=== PATIENT | female | born 1965 | race Caucasian/White ===

== ENCOUNTER 2016-10-07 15:06 | Observation (INO) | payer BC, OTHER ==
[~2016-10-07] VITALS: Ht 154.9 cm; Wt 73.8 kg
[~2016-10-07 15:06] MED LIST: ADVIN25/60 INH; ALBUAER19 INH; FURO40TA3 PO; HYDR1TAB2 PO; HYZ/50125 PO; LORA-741 PO; METFTAB PO; NIFE60TA55 PO; PANT40TA PO; SIMV80TA2 PO
[2016-10-07] MEDS ORDERED: ASPIRIN 324 MG CHEW PO STA (15:30)
--- NOTE | 2016-10-07 15:30 | EMERGENCY ROOM VISIT NOTE ---
History First contact with patient: 15:13 Chief Complaint: CARDIAC ASSESSMENT Stated Complaint: RACING HEART,DIZZINESS History of Present Illness The patient is a 51 year old female who presents to the Emergency Room with complaints of palpitations. Started last night around 6pm felt her heart racing. Associated diaphoresis and dizziness. Denies chest pain (admits to chest tightness). No SOB or nausea. Initial episode lasted for a couple of seconds. Gap of 10 minutes then had another episode lasting a few seconds. Then started again when she lied down for bed and lying appears to exacerbate the palpitations. Unsure if exertional (comes on while sitting and walking). No change with food. Today it has been happening all day. Feeling it right now but doesn't feel like it is coming out of her chest anymore but has ongoing chest tightness and dizziness from 10:00am (light headed). She has had rapid heart rates previously worked up by [facility] [facility] cardiology ( although she is unsure of which doctor). She was placed on metoprolol 12.5mg BID at that time (she took her normal doses today) Review of Systems See HPI for pertinent positives & negatives. A total of 10 systems reviewed and were otherwise negative. Past Medical/Surgical History Medical Problems: (1) Anxiety (2) Asthma (3) COPD (chronic obstructive pulmonary disease) (4) Depression (5) DM type 2 (diabetes mellitus, type 2) (6) GERD (gastroesophageal reflux disease) (7) Hyperlipidemia (8) Hypertension (9) Palpitations (10) SVT (supraventricular tachycardia) Surgical Problems: (1) H/O ventral hernia repair (2) H/O: hysterectomy (3) S/P bilateral salpingo-oophorectomy (4) S/P laparoscopic cholecystectomy (5) S/P LLOYD-BSO Family History Coronary artery disease Heart disease Lung cancer Social History Smoking Status: Current Every Day Smoker Current/Historical Medications Scheduled Fluticasone Prop/Salmeterol (Advair Diskus 250/50 60 Dose), 2 PUFF INH QAM Hydrochlorothiazide (Hydrochlorothiazide), 1 TAB PO DAILY Lorazepam (Ativan), 0.5 MG PO BID PRN Losartan Potassium (Losartan Potassium), 25 MG PO DAILY Metformin Ext Rel (Glucophage Ext Rel), 500 MG PO QAM Methocarbamol (Robaxin), 750 MG PO BID Metoprolol Succinate (Metoprolol Succinate ER), 25 MG PO BID Nifedipine (Procardia Xl Ext Rel), 60 MG PO QAM Pantoprazole Sodium (Protonix), 40 MG PO QAM Simvastatin (Zocor), 80 MG PO HS [Lortab 5/500MG], 1-2 TABS PO Q4-6HRS Scheduled PRN Albuterol Hfa (Ventolin Hfa), 2 PUFFS INH Q4H PRN for SOB/Wheezing Furosemide (Lasix), 40 MG PO QAM PRN for leg swelling Allergies Coded Allergies: Lisinopril (Unverified Adverse Reaction, Unknown, COUGH, 02/11/12) Physical Exam Vital Signs Date Time Temp Pulse Resp B/P (MAP) Pulse Ox O2 Delivery O2 Flow Rate FiO2 10/07/16 16:44 110 19 130/89 95 Room Air 10/07/16 16:41 94 130/89 10/07/16 16:19 87 10/07/16 15:45 126 19 149/106 96 Room Air 10/07/16 15:28 96 Room Air 10/07/16 15:10 36.4 57 16 119/75 96 Room Air Physical Exam VITAL SIGNS: were reviewed as above GENERAL: mild acute distress from dizziness and chest tightness SKIN: Warm dry and pink, no rashes HEAD: Normocephalic and atraumatic EYES: extraocular muscles intact, pupils equal and reactive to light OROPHARYNX: non erythematous, clear and moist LUNGS: Regular rate, no accessory muscle use, no respiratory distress, clear to auscultation, no accessory muscle use HEART: Irregular rate and rhythm, heart sounds 1+2, no murmurs, pulse 54bpm ABDOMEN: Soft and nontender, bowel sounds normal BACK: no CVA tenderness EXTREMITIES: Warm and well perfused, no calf tenderness/swelling, no pedal edema. NEUROLOGICALLY: Awake alert and oriented without gross focal motor or sensory deficit. no facial droop Medical Decision & Procedures ER Provider Diagnostic Interpretation: CHEST ONE VIEW PORTABLE CLINICAL HISTORY: chest tightness COMPARISON STUDY: 03/17/2012 FINDINGS: The cardiac and mediastinal contours are normal. There is no evidence of focal pulmonary consolidation. There is no evidence of failure. No pleural effusions are visualized.[ IMPRESSION: No active disease in the chest. Electronically signed by: Taz Baker M.D. 10/07/2016 4:09 PM Dictated Date/Time: 10/07/2016 4:08 PM Laboratory Results 10/07/16 15:18 Red Blood Count 4.61, Mean Corpuscular Volume 92.6, Mean Corpuscular Hemoglobin 31.0, Mean Corpuscular Hemoglobin Concent 33.5, Mean Platelet Volume 9.0, Neutrophils (%) (Auto) 53.3, Lymphocytes (%) (Auto) 35.8, Monocytes (%) (Auto) 8.4, Eosinophils (%) (Auto) 1.7, Basophils (%) (Auto) 0.5, Neutrophils # (Auto) 5.49, Lymphocytes # (Auto) 3.69, Monocytes # (Auto) 0.87, Eosinophils # (Auto) 0.18, Basophils # (Auto) 0.05 Test 10/07/16 15:18 White Blood Count 10.31 K/uL (4.8-10.8) Red Blood Count 4.61 M/uL (4.2-5.4) Hemoglobin 14.3 g/dL (12.0-16.0) Hematocrit 42.7 % (37-47) Mean Corpuscular Volume 92.6 fL (80-100) Mean Corpuscular Hemoglobin 31.0 pg (25-34) Mean Corpuscular Hemoglobin Concent 33.5 g/dl (32-36) Platelet Count 346 K/uL (130-400) Mean Platelet Volume 9.0 fL (7.4-10.4) Neutrophils (%) (Auto) 53.3 % Lymphocytes (%) (Auto) 35.8 % Monocytes (%) (Auto) 8.4 % Eosinophils (%) (Auto) 1.7 % Basophils (%) (Auto) 0.5 % Neutrophils # (Auto) 5.49 K/uL (1.4-6.5) Lymphocytes # (Auto) 3.69 K/uL (1.2-3.4) Monocytes # (Auto) 0.87 K/uL (0.11-0.59) Eosinophils # (Auto) 0.18 K/uL (0-0.5) Basophils # (Auto) 0.05 K/uL (0-0.2) RDW Standard Deviation 44.8 fL (36.4-46.3) RDW Coefficient of Variation 13.4 % (11.5-14.5) Immature Granulocyte % (Auto) 0.3 % Immature Granulocyte # (Auto) 0.03 K/uL (0.00-0.02) Prothrombin Time 10.0 SECONDS (9.0-12.0) Prothromb Time International Ratio 0.9 (0.9-1.1) Activated Partial Thromboplast Time 24.3 SECONDS (21.0-31.0) Partial Thromboplastin Ratio 0.9 Thyroid Stimulating Hormone (TSH) 0.900 uIu/ml (0.300-4.500) Lyme Disease IgG Antibody NEG (NEG) Lyme Disease IgM Antibody NEG (NEG) Hepatitis C Antibody Screen NEG (NEG) Medications Administered Medications (Trade) Dose Ordered Sig/Sergei Route Start Time Stop Time Status Last Admin Dose Admin Aspirin (Aspirin Chew) 324 mg NOW STAT PO 10/07/16 15:30 10/07/16 15:31 DC 10/07/16 15:34 324 MG Potassium Chloride (Klor-Con Tab) 40 meq ONE STAT PO 10/07/16 16:21 10/07/16 16:22 DC 10/07/16 16:38 40 MEQ Metoprolol Tartrate (Lopressor Iv) 5 mg NOW STAT IV 10/07/16 16:35 10/07/16 16:37 DC 10/07/16 16:41 5 MG ECG Indication: chest pain Rate (beats per minute): 100 Rhythm: sinus tachycardia Findings: PAC, PVC ED Course 15:16 Complete history and physical taken, aspirin ordered due to the possibility of cardiac ischemic from history 15:35 Discussed case with attending Dr. Page who separately performed history and physical 1610: Discussed case with Dr. Lombardo ([facility] Cardiology) who came to evaluate patient and advised prescribing 5mg IV metoprolol 1635: Discussed case with Solange Jiang PA-C ([facility] hospitalist) who came to evaluate the patient for admission/observation Medical Decision Prior records/ancillary studies reviewed. Triage Nursing notes reviewed. Additional history obtained from patient The patient's history was concerning for palpitations, chest tightness, dizziness and diaphoresis. Differential diagnosis: Etiologies such as cardiac ischemia, aortic dissection, pulmonary embolism, pneumonia, pneumothorax, musculoskeletal, infections, pericarditis, myocarditis , esophageal rupture, gastrointestinal, as well as others were entertained. Physical examination: As above. ER treatment provided: Aspirin 324mg PO Potassium chloride 40meq PO Metoprolol 5mg IV On reassessment the patient felt better. Diagnostic interpretation by me: The EKG showed no ischemic changes, PACs and PVCs present The labs revealed no abnormalities - potassium 3.6 Imaging studies: Chest x-ray as above Consultation: A consultation was placed with the [facility] cardiology. The case was discussed and diagnostics were reviewed. The patient was evaluated in the ER for further treatment and discussed with Dr. Page (advised inpatient admission/ observation). A consultation was placed with the [facility] hospitalist group. The case was discussed and diagnostics were reviewed. The patient was evaluated in the ER for further treatment. By the evaluation outlined above emergent etiologies such as aortic dissection , pulmonary embolism, pneumonia, pneumothorax, infections, pericarditis, myocarditis, gastrointestinal, as well as others were deemed relatively unlikely. The patient was informed about the findings as listed above. All questions were answered and she was pleased with the treatment. Consults Time Called: 15:57 Consulting Physician: Dr Lombardo Returned Call: 16:10 Will come and evaluate the patient Additional Consults: Time Called: 16:30 Consulted Physician: Solange Jiang ([facility] Hospitalist) Returned Call: 16:35 Impression Primary Impression: Palpitations Departure Information Dispostion Being Evaluated By Hospitalist Condition GOOD Prescriptions Metoprolol Succinate (Metoprolol Succinate ER) 25 Mg Tabcr 25 MG PO BID, #60 2 Refills Prov: J Carlos Beaver MD 10/09/16 Losartan Potassium (Losartan Potassium) 25 Mg Tab 25 MG PO DAILY, #30 TAB 2 Refills Prov: J Carlos Beaver MD 10/09/16 Referrals Jennifer. Broderick E. PA-C (PCP) Patient Instructions My [facility] Resident Tracking Resident Involvement: Resident Care Provided Care Provided: Adult ED
[2016-10-07] MEDS ORDERED: METOPROLOL TARTRATE 1 MG/ML VIAL IV STA ×2 (15:35→16:35)
[2016-10-07 15:46] LABS: BASO % 0.5 %; BASO ABS # 0.05 K/uL (0-0.2); COMPLETE YES; EOS % 1.7 %; HEMATOCRIT 42.7 % (37-47); IG% 0.3 %; LYMPH % 35.8 %; LYMPH ABS # 3.69 K/uL (1.2-3.4); MEAN CELL VOLUME 92.6 fL (80-100); MEAN CORPUSCULAR HGB CONC 33.5 g/dl (32-36); MONO % 8.4 %; NEUT % 53.3 %; PLATELET COUNT 346 K/uL (130-400); RED BLOOD COUNT 4.61 M/uL (4.2-5.4); WHITE BLOOD COUNT 10.31 K/uL (4.8-10.8)
[2016-10-07] MEDS ORDERED: METO-478 PO (16:01)
[2016-10-07] MEDS ORDERED: HYDR12.55 PO (16:01)
[2016-10-07] MEDS ORDERED: VNTHFA/IN INH (16:01)
[2016-10-07] MEDS ORDERED: LORTAB PO (16:01)
[2016-10-07] MEDS ORDERED: METH-307 PO (16:01)
[2016-10-07] MEDS ORDERED: LOSA50TA6 PO (16:01)
[2016-10-07 16:06] LABS: BLOOD UREA NITROGEN 10 mg/dl (7-18); BUN/CREATININE RATIO 10.8 (10-20); CALCIUM 9.1 mg/dl (8.5-10.1); CARBON DIOXIDE 27 mmol/L (21-32); CHLORIDE 108 mmol/L (98-107); CREATININE 0.92 mg/dl (0.60-1.20); GLUCOSE 95 mg/dl (70-99); MAGNESIUM 2.2 mg/dl (1.8-2.4); POTASSIUM 3.6 mmol/L (3.5-5.1); SODIUM 142 mmol/L (136-145)
[2016-10-07 16:07] LABS: INR 0.9 (0.9-1.1); PARTIAL THROMBOPLASTIN RATIO 0.9
--- NOTE | 2016-10-07 16:10 | DIAGNOSTIC IMAGING REPORT ---
CHEST ONE VIEW PORTABLE CLINICAL HISTORY: chest tightness COMPARISON STUDY: 03/17/2012 FINDINGS: The cardiac and mediastinal contours are normal. There is no evidence of focal pulmonary consolidation. There is no evidence of failure. No pleural effusions are visualized.[ IMPRESSION: No active disease in the chest. Electronically signed by: Taz Baker M.D. 10/07/2016 4:09 PM Dictated Date/Time: 10/07/2016 4:08 PM
[2016-10-07] MEDS ORDERED: POTASSIUM CHLORIDE 20 MEQ TABCR PO STA (16:21)
[2016-10-07 16:44] LABS: LYME DISEASE AB IGG NEG (NEG); LYME DISEASE AB IGM NEG (NEG)
[2016-10-07] MEDS ORDERED: NITROGLYCERIN 0.4 MG SL PER TAB CHARGE SL PRN (17:30)
[2016-10-07] MEDS ORDERED: ONDANSETRON INJ 2 MG/ML 2 ML VIAL IV PRN (17:30)
[2016-10-07] MEDS ORDERED: ACETAMINOPHEN 325 MG TAB PO PRN (17:30)
[2016-10-07] MEDS ORDERED: LEValbuterol HFA 15GM INHALER INH PRN (17:45)
[2016-10-07] MEDS ORDERED: GLUCAGON FOR INJ 1 MG VIAL SQ PRN (17:45)
[2016-10-07] MEDS ORDERED: LORAZEPAM 0.5 MG TAB PO PRN (17:45)
[2016-10-07] MEDS ORDERED: GLUCOSE 40% GEL 15 GM TUBE PO PRN (17:45)
[2016-10-07] MEDS ORDERED: DEXTROSE 50% 50 ML SYR IV PRN (17:45)
[2016-10-07] MEDS ORDERED: GLUCOSE 10 TABS/TUBE PO PRN (17:45)
[2016-10-07 18:11] VITALS: BP 91/74; PULSE 61; TEMP 36.7; Ht 154.9 cm; Wt 73.8 kg
[2016-10-07] MEDS ORDERED: IV FLUIDS COMPLETED PRN (18:15)
--- NOTE | 2016-10-07 18:51 | EMERGENCY ROOM VISIT NOTE ---
History Report prepared by Victor Manuel: Casie Denton Under the Supervision of: Dr. Rajat Page M.D. First contact with patient: 15:13 Chief Complaint: CARDIAC ASSESSMENT Stated Complaint: RACING HEART,DIZZINESS History of Present Illness The patient is a 51 year old female who presents to the Emergency Room with complaints of intermittent tachycardia and palpitations that began last evening. The patient reports that today she has noticed the palpitations and tachycardia more persistently and additionally associates lightheadedness and dizziness. The patient states that she is on Metoprolol. She additionally notes diaphoresis. According to the monitor, the patient appears to be going in and out of narrow complex tachycardia. Pt denies LOC, headache, fevers, chills, visual changes, neck pain, breathing difficulties, chest pain, nausea, vomiting, abdominal pain, back pain, melena, hematochezia, urinary symptoms, numbness, weakness, lymphadenopathy, rash, or other complaints. Source of History: patient Onset: last evening Position: other (global) Quality: other (tachycardia and palpitations) Timing: intermittent Associated Symptoms: + diaphoresis Note: Associated Symptoms: dizziness and lightheadedness Review of Systems See HPI for pertinent positives and negatives. A total of ten systems were reviewed and were otherwise negative. Past Medical & Surgical Medical Problems: (1) Anxiety (2) COPD (chronic obstructive pulmonary disease) (3) Depression (4) Diabetes (5) GERD (gastroesophageal reflux disease) (6) Hyperlipidemia (7) Hypertension (8) Palpitations (9) SVT (supraventricular tachycardia) Surgical Problems: (1) H/O ventral hernia repair (2) H/O: hysterectomy (3) S/P bilateral salpingo-oophorectomy Family History Coronary artery disease Heart disease Lung cancer Social History Smoking Status: Current Every Day Smoker Marital Status: Occupation Status: employed Current/Historical Medications Scheduled Fluticasone Prop/Salmeterol (Advair Diskus 250/50 60 Dose), 2 PUFF INH QAM Hydrochlorothiazide (Hydrochlorothiazide), 1 TAB PO DAILY Lorazepam (Ativan), 0.5 MG PO BID PRN Losartan Potassium (Cozaar), 50 MG PO DAILY Metformin Ext Rel (Glucophage Ext Rel), 500 MG PO QAM Methocarbamol (Robaxin), 750 MG PO BID Metoprolol Succinate (Toprol Xl), 12.5 MG PO DAILY Nifedipine (Procardia Xl Ext Rel), 60 MG PO QAM Pantoprazole Sodium (Protonix), 40 MG PO QAM Simvastatin (Zocor), 80 MG PO HS [Lortab 5/500MG], 1-2 TABS PO Q4-6HRS Scheduled PRN Albuterol Hfa (Ventolin Hfa), 2 PUFFS INH Q4H PRN for SOB/Wheezing Furosemide (Lasix), 40 MG PO QAM PRN for leg swelling Allergies Coded Allergies: Lisinopril (Unverified Adverse Reaction, Unknown, COUGH, 02/11/12) Physical Exam Vital Signs Date Time Temp Pulse Resp B/P (MAP) Pulse Ox O2 Delivery O2 Flow Rate FiO2 10/07/16 16:44 110 19 130/89 95 Room Air 10/07/16 16:41 94 130/89 10/07/16 16:19 87 10/07/16 15:45 126 19 149/106 96 Room Air 10/07/16 15:28 96 Room Air 10/07/16 15:10 36.4 57 16 119/75 96 Room Air Physical Exam GENERAL: Awake, alert, well-appearing, in no distress HENT: Normocephalic, atraumatic. Oropharynx unremarkable. EYES: Normal conjunctiva. Sclera non-icteric. NECK: Supple. No nuchal rigidity. FROM. No JVD. RESPIRATORY: Clear to auscultation. CARDIAC: Regular rate, normal rhythm. Extremities warm and well perfused. Pulses equal. ABDOMEN: Soft, non-distended. No tenderness to palpation. No rebound or guarding. No masses. RECTAL: Deferred. MUSCULOSKELETAL: Chest examination reveals no tenderness. The back is symmetrical on inspection without obvious abnormality. There is no CVA tenderness to palpation. No joint edema. LOWER EXTREMITIES: Calves are equal size bilaterally and non-tender. No edema. No discoloration. NEURO: Normal sensorium. No sensory or motor deficits noted. SKIN: No rash or jaundice noted. Medical Decision & Procedures ER Provider Diagnostic Interpretation: X-ray: Per my interpretation, radiologist review. CHEST ONE VIEW PORTABLE CLINICAL HISTORY: chest tightness COMPARISON STUDY: 03/17/2012 FINDINGS: The cardiac and mediastinal contours are normal. There is no evidence of focal pulmonary consolidation. There is no evidence of failure. No pleural effusions are visualized.[ IMPRESSION: No active disease in the chest. Electronically signed by: Taz Baker M.D. 10/07/2016 4:09 PM Dictated Date/Time: 10/07/2016 4:08 PM Laboratory Results 10/07/16 15:18 Red Blood Count 4.61, Mean Corpuscular Volume 92.6, Mean Corpuscular Hemoglobin 31.0, Mean Corpuscular Hemoglobin Concent 33.5, Mean Platelet Volume 9.0, Neutrophils (%) (Auto) 53.3, Lymphocytes (%) (Auto) 35.8, Monocytes (%) (Auto) 8.4, Eosinophils (%) (Auto) 1.7, Basophils (%) (Auto) 0.5, Neutrophils # (Auto) 5.49, Lymphocytes # (Auto) 3.69, Monocytes # (Auto) 0.87, Eosinophils # (Auto) 0.18, Basophils # (Auto) 0.05 10/07/16 15:18 Test 10/07/16 15:18 White Blood Count 10.31 K/uL (4.8-10.8) Red Blood Count 4.61 M/uL (4.2-5.4) Hemoglobin 14.3 g/dL (12.0-16.0) Hematocrit 42.7 % (37-47) Mean Corpuscular Volume 92.6 fL (80-100) Mean Corpuscular Hemoglobin 31.0 pg (25-34) Mean Corpuscular Hemoglobin Concent 33.5 g/dl (32-36) Platelet Count 346 K/uL (130-400) Mean Platelet Volume 9.0 fL (7.4-10.4) Neutrophils (%) (Auto) 53.3 % Lymphocytes (%) (Auto) 35.8 % Monocytes (%) (Auto) 8.4 % Eosinophils (%) (Auto) 1.7 % Basophils (%) (Auto) 0.5 % Neutrophils # (Auto) 5.49 K/uL (1.4-6.5) Lymphocytes # (Auto) 3.69 K/uL (1.2-3.4) Monocytes # (Auto) 0.87 K/uL (0.11-0.59) Eosinophils # (Auto) 0.18 K/uL (0-0.5) Basophils # (Auto) 0.05 K/uL (0-0.2) RDW Standard Deviation 44.8 fL (36.4-46.3) RDW Coefficient of Variation 13.4 % (11.5-14.5) Immature Granulocyte % (Auto) 0.3 % Immature Granulocyte # (Auto) 0.03 K/uL (0.00-0.02) Prothrombin Time 10.0 SECONDS (9.0-12.0) Prothromb Time International Ratio 0.9 (0.9-1.1) Activated Partial Thromboplast Time 24.3 SECONDS (21.0-31.0) Partial Thromboplastin Ratio 0.9 Anion Gap 7.0 mmol/L (3-11) Est Creatinine Clear Calc Drug Dose 62.4 ml/min Estimated GFR () 82.4 Estimated GFR (Non- 71.1 BUN/Creatinine Ratio 10.8 (10-20) Calcium Level 9.1 mg/dl (8.5-10.1) Magnesium Level 2.2 mg/dl (1.8-2.4) Troponin I < 0.015 ng/ml (0-0.045) Thyroid Stimulating Hormone (TSH) 0.900 uIu/ml (0.300-4.500) Lyme Disease IgG Antibody NEG (NEG) Lyme Disease IgM Antibody NEG (NEG) Laboratory results reviewed by me Medications Administered Medications (Trade) Dose Ordered Sig/Sergei Route Start Time Stop Time Status Last Admin Dose Admin Aspirin (Aspirin Chew) 324 mg NOW STAT PO 10/07/16 15:30 10/07/16 15:31 DC 10/07/16 15:34 324 MG Potassium Chloride (Klor-Con Tab) 40 meq ONE STAT PO 10/07/16 16:21 10/07/16 16:22 DC 10/07/16 16:38 40 MEQ Metoprolol Tartrate (Lopressor Iv) 5 mg NOW STAT IV 10/07/16 16:35 10/07/16 16:37 DC 10/07/16 16:41 5 MG ECG Indication: palpitations, tachycardia Rate (beats per minute): 100 Rhythm: sinus rhythm Findings: nonspecific-ST abn, PVC, Q waves (Septal) ED Course 1514: The patient was evaluated in room C7. A complete history and physical exam was performed by Dr. Mchugh, Ship[employer]S Officer. 1530: Ordered Aspirin 324 mg PO. 1545: The patient was evaluated in room C7. A complete history and physical exam was performed. 1610: Dr. Mchugh, Ship'S Officer discussed the patients case with Song Hartman. Dr. Lombardo will come evaluate the patient. 1621: Ordered Potassium Chloride 40 meq PO. 1635: I discussed the patients case with Song Hartman. He suggests that the patient receives 5 mg of Metoprolol IV. Ordered Metoprolol Tartrate 5 mg IV. Medical Decision Medication Reconciliation: I attest that I have personally reviewed the patient' s current medication list Blood pressure screening: Patient was found to have an elevated blood pressure and was referred to their primary doctor for recheck and further treatment. Prior records/ancillary studies reviewed. Triage Nursing notes reviewed and agree them. Additional history obtained from the family. The patient's history was concerning for palpitations. Differential diagnosis: Etiologies such as electrolyte abnormality, cardiac dysrhythmia, thyroid dysfunction, pulmonary embolism, infection, gastrointestinal, as well as others were entertained. Physical examination: as above. ER treatment provided: Cardiac monitoring. IV Lopressor Oral potassium On reassessment the patient was stable but still having paroxysmal SVT Diagnostic interpretation by me: The electrocardiogram was negative for pathologic change. Cardiac monitoring reveals paroxysmal SVT. The labs revealed an unremarkable CBC, chemistry panel, and cardiac markers except for a slightly low normal potassium. Imaging studies: Chest x-ray as above. The patient was seen and examined with Dr. Mchugh, resident physician. We discussed the case and treatments ordered, reviewed the results, and determine the disposition. Please refer to the resident's note for additional details. I have been directly involved with the management and disposition as well as independently evaluated the patient as documented in this note. Consultation: A consultation was placed with the [employer] inspector cold working, Dr. Lombardo. He presented to the Emergency Room and recommended IV beta blockers and admission. Consultation was made with the hospitalist. The case was discussed and diagnostics were reviewed. The patient was evaluated in the ER for further treatment. Consults Time Called: 1605 Consulting Physician: Song Hartman Returned Call: 1610 Dr. Mchugh, Ship'S Officer discussed the patients case with Song Hartman. Dr. Lombardo will come evaluate the patient. Additional Consults: Time Called: 1646 Consulted Physician: Fidencio Walton PA-C Returned Call: 1650 Additional Comments: Dr. Mchugh, Ship'S Officer discussed the patients case with Fidencio Walton PA-C. She is going to evaluate the patient for further treatment. Impression Primary Impression: Paroxysmal SVT (supraventricular tachycardia) Additional Impressions: Near syncope Palpitations Scribe Attestation The scribe's documentation has been prepared under my direction and personally reviewed by me in its entirety. I confirm that the note above accurately reflects all work, treatment, procedures, and medical decision making performed by me. Departure Information Dispostion Being Evaluated By Hospitalist Referrals Jennifer. Broderick E. PA-C (PCP) Problem Qualifiers
[2016-10-07 19:23] VITALS: BP 126/61; PULSE 58; TEMP 36.7; O2SAT 96
--- NOTE | 2016-10-07 19:30 | History and Physical ---
History & Physical Date & Time of Service: Oct 07, 2016 at 17:40 Chief Complaint: Racing Heart,Dizziness Primary Care Physician: Solange Broderick.Judy PA-C History of Present Illness Source: patient, clinic records This is a 51 year old female with PMH of hyeprtension, dyslipidemia, DM 2, asthma, COPD, current smoker, and other problems listed below who presents to the ED for palpitations. Patient states palpitations described as heart racing started yesterday evening while gardening. The episode resolved after a few seconds She had another episode last night also lasting a few seconds. Pt states episodes occur randomly at rest or with activity. Then today at work she felt palpitations throughout the day. She reports associated lightheadedness. No syncope. She had a dry cough this afternoon. States her legs are mildly more swollen than usual today. Had 1 episode diarrhea this afternoon. No fever, chills, URI symptoms, SOB, MOCTEZUMA, orthopnea, chest pain, N/V, abdominal pain, urinary changes, calf pain, abnormal bleeding, anxiety. In the ER she was noted to have short runs of narrow complex tachycardia on the monitor with rate up to 120s. She received Lopressor 5 mg IV. She is now feeling asymptomatic. She took her usual medications today including metoprolol succinate 12.5 mg qAM. She reports drinking 3 pots of coffee daily. She reports prior palpitations years ago for which she saw Suzanne Mckeon PA-C whose note mentioned Holter monitor 2011 showing predominantly normal sinus rhythm and 02/2012 nuclear stress test was nonischemic. No prior dx of arrhythmia or CAD. Past Medical/Surgical History Medical Problems: (1) Anxiety Status: Chronic (2) Asthma Status: Chronic (3) COPD (chronic obstructive pulmonary disease) Status: Chronic (4) Depression Status: Chronic (5) DM type 2 (diabetes mellitus, type 2) Status: Chronic (6) GERD (gastroesophageal reflux disease) Status: Chronic (7) Hyperlipidemia Status: Chronic (8) Hypertension Status: Chronic Surgical Problems: (1) H/O ventral hernia repair Status: Resolved (2) H/O: hysterectomy Status: Resolved (3) S/P bilateral salpingo-oophorectomy Status: Resolved (4) S/P laparoscopic cholecystectomy Status: Chronic (5) S/P LLOYD-BSO Status: Chronic Family History Coronary artery disease MOTHER (AR in 40s or 50s, survived) FH: long QT syndrome SISTER (alive) Heart disease Lung cancer Social History 3 pots coffee per day Smoking Status: Current Every Day Smoker (1/2 ppd x 39 years. tried to quit multiple times. did not tolerate Chantix.) Alcohol Use: none Drug Use: none Marital Status: Housing status: lives with significant other Occupational Status: employed Immunizations History of Influenza Vaccine: No History of Tetanus Vaccine?: Unknown History of Pneumococcal: Yes Pneumococcal Date: Mar 18, 2012 History of Hepatitis B Vaccine: No Multi-Drug Resistant Organisms History of MDRO: No Allergies Coded Allergies: Lisinopril (Unverified Adverse Reaction, Unknown, COUGH, 02/11/12) Home Medications Scheduled Fluticasone Prop/Salmeterol (Advair Diskus 250/50 60 Dose), 2 PUFF INH QAM Hydrochlorothiazide (Hydrochlorothiazide), 1 TAB PO DAILY Lorazepam (Ativan), 0.5 MG PO BID PRN Losartan Potassium (Cozaar), 50 MG PO DAILY Metformin Ext Rel (Glucophage Ext Rel), 500 MG PO QAM Methocarbamol (Robaxin), 750 MG PO BID Metoprolol Succinate (Toprol Xl), 12.5 MG PO DAILY Nifedipine (Procardia Xl Ext Rel), 60 MG PO QAM Pantoprazole Sodium (Protonix), 40 MG PO QAM Simvastatin (Zocor), 80 MG PO HS [Lortab 5/500MG], 1-2 TABS PO Q4-6HRS Scheduled PRN Albuterol Hfa (Ventolin Hfa), 2 PUFFS INH Q4H PRN for SOB/Wheezing Furosemide (Lasix), 40 MG PO QAM PRN for leg swelling Review of Systems Ten systems reviewed and negative except as noted in HPI. Physical Exam Vital Signs Date Time Temp Pulse Resp B/P (MAP) Pulse Ox O2 Delivery O2 Flow Rate FiO2 10/07/16 16:44 110 19 130/89 95 Room Air 10/07/16 16:41 94 130/89 10/07/16 16:19 87 10/07/16 15:45 126 19 149/106 96 Room Air 10/07/16 15:28 96 Room Air 10/07/16 15:10 36.4 57 16 119/75 96 Room Air General Appearance: WD/WN, no apparent distress, + pertinent finding (alert coopertive 51 year old female, at bedside) Head: normocephalic, atraumatic Eyes: normal inspection, PERRL, sclerae normal ENT: hearing grossly normal, pharynx normal Neck: supple, no JVD, trachea midline Respiratory/Chest: lungs clear, normal breath sounds, no respiratory distress, no accessory muscle use Cardiovascular: regular rate, rhythm, no murmur, normal peripheral pulses Abdomen/GI: normal bowel sounds, non tender, soft Extremities/Musculoskelatal: normal inspection, no calf tenderness, no pedal edema Neurologic/Psych: alert, normal mood/affect, oriented x 3 Skin: normal color, warm/dry Diagnostics Laboratory Results Results Past 24 Hours Test 10/07/16 15:18 10/07/16 17:32 Range/Units White Blood Count 10.31 4.8-10.8 K/uL Red Blood Count 4.61 4.2-5.4 M/uL Hemoglobin 14.3 12.0-16.0 g/dL Hematocrit 42.7 37-47 % Mean Corpuscular Volume 92.6 80-100 fL Mean Corpuscular Hemoglobin 31.0 25-34 pg Mean Corpuscular Hemoglobin Concent 33.5 32-36 g/dl Platelet Count 346 130-400 K/uL Mean Platelet Volume 9.0 7.4-10.4 fL Neutrophils (%) (Auto) 53.3 % Lymphocytes (%) (Auto) 35.8 % Monocytes (%) (Auto) 8.4 % Eosinophils (%) (Auto) 1.7 % Basophils (%) (Auto) 0.5 % Neutrophils # (Auto) 5.49 1.4-6.5 K/uL Lymphocytes # (Auto) 3.69 1.2-3.4 K/uL Monocytes # (Auto) 0.87 0.11-0.59 K/uL Eosinophils # (Auto) 0.18 0-0.5 K/uL Basophils # (Auto) 0.05 0-0.2 K/uL RDW Standard Deviation 44.8 36.4-46.3 fL RDW Coefficient of Variation 13.4 11.5-14.5 % Immature Granulocyte % (Auto) 0.3 % Immature Granulocyte # (Auto) 0.03 0.00-0.02 K/uL Prothrombin Time 10.0 9.0-12.0 SECONDS Prothromb Time International Ratio 0.9 0.9-1.1 Activated Partial Thromboplast Time 24.3 21.0-31.0 SECONDS Partial Thromboplastin Ratio 0.9 Sodium Level 142 136-145 mmol/L Potassium Level 3.6 3.5-5.1 mmol/L Chloride Level 108 98-107 mmol/L Carbon Dioxide Level 27 21-32 mmol/L Anion Gap 7.0 3-11 mmol/L Blood Urea Nitrogen 10 7-18 mg/dl Creatinine 0.92 0.60-1.20 mg/dl Est Creatinine Clear Calc Drug Dose 62.4 ml/min Estimated GFR () 82.4 Estimated GFR (Non- 71.1 BUN/Creatinine Ratio 10.8 10-20 Random Glucose 95 70-99 mg/dl Calcium Level 9.1 8.5-10.1 mg/dl Magnesium Level 2.2 1.8-2.4 mg/dl Troponin I < 0.015 0-0.045 ng/ml Lyme Disease IgG Antibody NEG NEG Lyme Disease IgM Antibody NEG NEG Diagnostic Radiology CHEST ONE VIEW PORTABLE CLINICAL HISTORY: chest tightness COMPARISON STUDY: 03/17/2012 FINDINGS: The cardiac and mediastinal contours are normal. There is no evidence of focal pulmonary consolidation. There is no evidence of failure. No pleural effusions are visualized.[ IMPRESSION: No active disease in the chest. EKG Sinus rhythm with PACS, some conducted aberrantly, when compared to prior EKG fusion complexes are now present; as per cardiology read; also reviewed by me Impression Assessment and Plan PAROXYSMAL SVT Noted to have short runs of narrow complex tachycardia in ER Received Lopressor 5 mg IV Currently in sinus rhythm rate controlled Initial troponin negative- recheck in am Electrolytes WNL, TSH WNL, lyme screen neg Patient advised to avoid caffeine (3 pot per day coffee drinker) Check echo PRN IV Lopressor Continue metoprolol succinate 12.5 mg daily Consult cardiology; Dr. Lombardo made aware by ER provider HYPERTENSION BP initially stable; had one reading borderline low Hold losartan and HCTZ Continue nifedipine, metoprolol succinate DM TYPE 2 Hold metformin Insulin sliding scale coverage COPD/ ASTHMA Not in acute exacerbation Continue home inhaler DYSLIPIDEMIA Continue statin TOBACCO ABUSE Counselled for cessation Nicotine patch DVT PROPHYLAXIS Lovenox SQ FULL CODE DISPOSITION Observation to telemetry Follows with Solange Broderick PA-C at [facility] for primary care Patient seen in collaboration with Dr. Beaver. Please see his addendum. Agree with above H and P. Briefly 51F presents with palpitations starting yesterday but became persistent since today morning. [place] lightheaded. No chest pain or sob or cough. No fevers.Drinks 3 pots of coffee everyday.Had worked up for SVT with Holter and stress test which were negative in the past.Currently in NSR after iv Lopressor in ER. p/e Ge not in distress Cvs s1 and s2 heard no murmurs Rs cta b/l no added sounds Abd benign [place] Helper non focal Ext no edema a/p Paroxysmal SVT currently in NSR continue home Toprol xl iv Lopressor prn echo monitor in tele cardiology consul advised to avoid coffee. DM holding metformin iss will monitor VTE Prophylaxis VTE Risk Assessment Done? Y/N: Yes Risk Level: Moderate Given or contraindicated: Enoxaparin (Lovenox)SQ
[2016-10-07] MEDS: HYDROCODONE/ACETAMOPHEN 5/325MG TAB PO PRN ×2 (19:39→23:51)
[2016-10-07] MEDS: METOPROLOL TARTRATE 1 MG/ML VIAL IV PRN (19:40)
[2016-10-07] MEDS: NICOTINE 21 MG/24 HR TDSY TD SCH (19:53)
[2016-10-07] MEDS: ENOXAPARIN 40 MG/0.4 ML SYR SC SCH (19:54)
[2016-10-07] MEDS: SIMVASTATIN 80 MG TAB PO SCH (19:55)
[2016-10-07] MEDS: FLUTICASONE/SALMETEROL 250/50 (ADVAIR) 14 PUFF/1 INHALER INH SCH (19:55)
[2016-10-07] MEDS: INSULIN ASPART 100 UNITS/ML 3 ML PEN SC SCH (20:27)
[2016-10-07] MEDS: METHOCARBAMOL 750 MG TAB PO SCH (23:51)
[2016-10-08] VITALS (8 sets, daily range): BP systolic 121–130; BP diastolic 61–89; PULSE 53–82; TEMP 36.5–36.8; O2SAT 94–97
[2016-10-08] MEDS: INSULIN ASPART 100 UNITS/ML 3 ML PEN SC SCH ×4 (07:00→22:18)
[2016-10-08 07:10] LABS: BLOOD UREA NITROGEN 12 mg/dl (7-18); BUN/CREATININE RATIO 13.6 (10-20); CALCIUM 9.3 mg/dl (8.5-10.1); CARBON DIOXIDE 27 mmol/L (21-32); CHLORIDE 112 mmol/L (98-107); CREATININE 0.87 mg/dl (0.60-1.20); GLUCOSE 93 mg/dl (70-99); MAGNESIUM 2.3 mg/dl (1.8-2.4); SODIUM 144 mmol/L (136-145)
[2016-10-08 07:49] LABS: ESTIMATED AVERAGE GLUCOSE 114 mg/dl; HA1C FLAG Normal (Normal)
[2016-10-08] MEDS: FLUTICASONE/SALMETEROL 250/50 (ADVAIR) 14 PUFF/1 INHALER INH SCH ×2 (07:54→21:29)
[2016-10-08] MEDS: HYDROCHLOROTHIAZIDE 25 MG TAB PO SCH (07:55)
[2016-10-08] MEDS: PANTOprazole SOD 40 MG TAB PO SCH (07:56)
[2016-10-08] MEDS: LOSARTAN POTASSIUM 50 MG TAB PO SCH (07:56)
[2016-10-08] MEDS: METHOCARBAMOL 750 MG TAB PO SCH ×2 (07:56→21:30)
[2016-10-08] MEDS: NIFEdipine 30 MG CR TAB PO SCH (07:57)
[2016-10-08] MEDS: NICOTINE 21 MG/24 HR TDSY TD SCH (07:57)
[2016-10-08] MEDS: HYDROCODONE/ACETAMOPHEN 5/325MG TAB PO PRN ×3 (08:02→20:18)
[2016-10-08] MEDS ORDERED: FLUTICASONE/SALMETEROL 250/50 (ADVAIR) 14 PUFF/1 INHALER INH SCH (09:00)
[2016-10-08] MEDS ORDERED: METOPROLOL SUCC 25MG EXT REL TAB PO SCH (09:00)
--- NOTE | 2016-10-08 12:35 | ECHOCARDIOGRAM REPORT ---
*NOTICE TO RECEIVING CONSTITUTION PARTY AGENCY This information is strictly Confidential and protected under [place] law. [place] law prohibits you from making any further disclosure of this information unless further disclosure is expressly permitted by the written consent of the person to whom it pertains or is authorized by law. A general authorization for the release of medical or other information is not sufficient for this purpose. Hospital accepts no responsibility if the information is made available to any other person, INCLUDING THE PATIENT. Interpretation Summary * Name: SALOMÓN DON Study Date: 10/08/2016 07:28 AM BP: 121/80 mmHg * Patient Location: .2E\S\E212\S\1 HR: 74 * : 1965 (M/d/yyyy) Gender: Female Height: 59 in * Age: 51 yrs Ethnicity: CA Weight: 165 lb * Ordering Physician: Solange Jiang * Referring Physician: Self, Referred * Performed By: Casie Vizcaino RDCS * * Reason For Study: SVT * BSA: 1.7 m2 * -- Conclusions -- * The left ventricle is normal in size. * There is mild concentric left ventricular hypertrophy. * The basal septum is thickened and angulated consistent with sigmoid septum. * The left ventricular wall motion is normal. * Left ventricular systolic function is normal. * Ejection Fraction = 60-65%. * Grade I diastolic dysfunction, (abnormal relaxation pattern). Procedure Details * A complete two-dimensional transthoracic echocardiogram was performed (2D, M-mode, Doppler and color flow Doppler). Left Ventricle * The left ventricle is normal in size. * There is mild concentric left ventricular hypertrophy. * The basal septum is thickened and angulated consistent with sigmoid septum. * Ejection Fraction = 60-65%. * Left ventricular systolic function is normal. * The left ventricular wall motion is normal. Right Ventricle * The right ventricle is normal in size and function. Atria * The left atrial size is normal. * Right atrial size is normal. * No ASD detected; PFO is not assessed. Mitral Valve * The mitral valve is normal. * There is no mitral valve stenosis. * There is trace mitral regurgitation. Tricuspid Valve * The tricuspid valve is normal. * There is no tricuspid stenosis. * There is trace tricuspid regurgitation. Aortic Valve * The aortic valve is trileaflet. * No hemodynamically significant valvular aortic stenosis. * No aortic regurgitation is present. Pulmonic Valve * The pulmonic valve is not well visualized. Great Vessels * The aortic root is normal size. Pericardium/Pleural * There is no pericardial effusion. Great Vessels * Normal inferior vena cava diameter and respiratory variation suggests normal central venous pressure. Left Ventricular Diastolic Function * Grade I diastolic dysfunction, (abnormal relaxation pattern). MMode 2D Measurements and Calculations IVSd 1.3 cm IVSs 1.5 cm LVIDd 3.8 cm LVIDs 2.6 cm LVPWd 1.2 cm LVPWs 1.9 cm IVS/LVPW 1.0 FS 32.4 % EDV(Teich) 62.4 ml ESV(Teich) 24.1 ml EF(Teich) 61.5 % EDV(cubed) 55.4 ml ESV(cubed) 17.1 ml EF(cubed) 69.1 % % IVS thick 22.6 % % LVPW thick 53.1 % LV mass(C)d 163.1 grams LV mass(C)dI 96.0 grams/m\S\2 LV mass(C)s 167.0 grams LV mass(C)sI 98.3 grams/m\S\2 SV(Teich) 38.4 ml SI(Teich) 22.6 ml/m\S\2 SV(cubed) 38.3 ml SI(cubed) 22.5 ml/m\S\2 Ao root diam 3.0 cm Ao root area 7.0 cm\S\2 LA dimension 2.8 cm LA/Ao 0.95 LVAd ap4 22.8 cm\S\2 LVLd ap4 7.1 cm EDV(MOD-sp4) 60.2 ml EDV(sp4-el) 62.0 ml LVAs ap4 13.0 cm\S\2 LVLs ap4 6.0 cm ESV(MOD-sp4) 26.2 ml ESV(sp4-el) 23.7 ml EF(MOD-sp4) 56.5 % EF(sp4-el) 61.9 % LVAd ap2 24.6 cm\S\2 LVLd ap2 7.9 cm EDV(MOD-sp2) 62.1 ml EDV(sp2-el) 65.1 ml LVAs ap2 13.9 cm\S\2 LVLs ap2 6.6 cm ESV(MOD-sp2) 25.8 ml ESV(sp2-el) 24.6 ml EF(MOD-sp2) 58.4 % EF(sp2-el) 62.2 % LVLd %diff 9.5 % EDV(MOD-bp) 63.7 ml LVLs %diff 8.9 % ESV(MOD-bp) 27.2 ml EF(MOD-bp) 57.3 % SV(MOD-sp4) 34.0 ml SI(MOD-sp4) 20.0 ml/m\S\2 SV(MOD-sp2) 36.2 ml SI(MOD-sp2) 21.3 ml/m\S\2 SV(MOD-bp) 36.5 ml SI(MOD-bp) 21.5 ml/m\S\2 SV(sp4-el) 38.4 ml SI(sp4-el) 22.6 ml/m\S\2 SV(sp2-el) 40.5 ml SI(sp2-el) 23.9 ml/m\S\2 Doppler Measurements and Calculations MV E max zeeshan 58.9 cm/sec MV A max zeeshan 69.1 cm/sec MV E/A 0.85 MV dec time 0.29 sec Ao V2 max 106.1 cm/sec Ao max PG 4.5 mmHg Ao max PG (full) 1.9 mmHg LV V1 max PG 2.6 mmHg LV V1 max 80.4 cm/sec TR max zeeshan 208.0 cm/sec
[2016-10-08] MEDS ORDERED: METOPROLOL SUCC 25MG EXT REL TAB PO STA (13:35)
--- NOTE | 2016-10-08 15:06 | CARDIOLOGY PROGRESS NOTE ---
DATE: 10/08/2016 DATE: 10/08/2016. SUBJECTIVE: The patient seen and examined. Chart, medications, telemetry reviewed. Arrhythmias settle down last night; however, on subsequent ambulation this morning once again has had runs and multiple salvos of paroxysmal atrial tachycardia. She is relatively asymptomatic though episodes are occurring multiple times per minute. She notes no chest pain. Notes no shortness of breath. Notes no fevers, chills or productive cough. Notes no indigestion or heartburn. OBJECTIVE: VITAL SIGNS: Heart rate at baseline is 80, blood pressure is 126/62, O2 saturation is 95% on room air. HEAD, EYES, EARS, NOSE, AND THROAT EXAMINATION: Normocephalic, atraumatic. NECK: Thin. There is no jugular venous distention. LUNGS: Clear. CARDIOVASCULAR EXAMINATION: Regular. There is no S3 gallop. ABDOMEN: Soft, nontender. EXTREMITIES: Without cyanosis or clubbing. There is no peripheral edema. DATA: Echocardiogram demonstrates mild left ventricular hypertrophy with sigmoid septum, otherwise preserved LV function, no valvular disease. LABORATORY STUDIES: Sodium is 144, potassium is 4.0, chloride is 112, bicarbonate 27, BUN is 12, creatinine 0.87. Troponins have been negative. IMPRESSION: A 51-year-old female with multiple episodes of paroxysmal atrial tachycardia. PLAN: Increasing metoprolol, will continue to monitor for time being. Additional 25 mg metoprolol will be given with patient having received 12.5 mg of Toprol earlier today. Usual antihypertensives will be continued. MTDD
--- NOTE | 2016-10-08 17:48 | Progress Note ---
Internal Med Progress Note Date of Service: Oct 08, 2016. Provider Documentation: SUBJECTIVE: resting comfortably was doing fine in a but later again had runs of svt denies chest pain or sob afebrile OBJECTIVE: Vital Signs-as noted below Exam: General-alert and oriented. Not in distress ENT-normal hearing Neck-no neck masses Lungs-cta b/l no wheezing or crackles Heart-s1 and s2 heard regular no murmurs Abdomen-soft bowel sounds present nontender no distension Extremities-no edema no erythema Neuro-alert and oriented moves extremities Lab data as noted below. ASSESSMENT & PLAN: PAROXYSMAL Atrial tachycardia converted to NSR with iv Lopressor in Er again today having episodes of atrial tachycardias cardiology increased Toprol xl to 25mg daily echo shows normal EF, no Wall motion abnormalities,has sigmoid septum monitor in tele HYPERTENSION Continue nifedipine, HCTZ and losartan and metoprolol succinate as above will monitor DM TYPE 2 Holding metformin Insulin sliding scale coverage hba1c 5.6 COPD/ ASTHMA Not in acute exacerbation Continue home inhaler DYSLIPIDEMIA Continue statin TOBACCO ABUSE Counselled for cessation Nicotine patch DVT PROPHYLAXIS Lovenox SQ DISPOSITION monitor in tele to be determined Vital Signs: Date Time Temp Pulse Resp B/P (MAP) Pulse Ox O2 Delivery O2 Flow Rate FiO2 10/08/16 15:50 36.8 73 20 122/68 (86) 96 Room Air 10/08/16 12:00 Room Air 10/08/16 08:22 36.6 80 18 126/62 (83) 95 10/08/16 08:00 Room Air 10/08/16 04:00 Room Air 10/08/16 03:59 36.5 74 18 121/80 (94) 96 Room Air 10/08/16 00:01 36.8 62 18 121/61 (81) 95 Room Air 10/07/16 23:59 Room Air 10/07/16 20:00 Room Air 10/07/16 19:40 130 128/65 10/07/16 19:23 36.7 58 20 126/61 (82) 96 Room Air 10/07/16 18:11 36.7 61 22 91/74 Room Air 10/07/16 17:48 106 20 162/113 96 Room Air Lab Results: Results Past 24 Hours Test 10/07/16 19:48 10/08/16 06:10 10/08/16 06:26 10/08/16 11:38 Range/Units Bedside Glucose 111 91 135 70-90 mg/dl Sodium Level 144 136-145 mmol/L Potassium Level 4.0 3.5-5.1 mmol/L Chloride Level 112 98-107 mmol/L Carbon Dioxide Level 27 21-32 mmol/L Anion Gap 5.0 3-11 mmol/L Blood Urea Nitrogen 12 7-18 mg/dl Creatinine 0.87 0.60-1.20 mg/dl Est Creatinine Clear Calc Drug Dose 68.6 ml/min Estimated GFR () 88.2 Estimated GFR (Non- 76.1 BUN/Creatinine Ratio 13.6 10-20 Random Glucose 93 70-99 mg/dl Estimated Average Glucose 114 mg/dl Hemoglobin A1c 5.6 4.5-5.6 % Calcium Level 9.3 8.5-10.1 mg/dl Magnesium Level 2.3 1.8-2.4 mg/dl Troponin I < 0.015 0-0.045 ng/ml Test 10/08/16 15:58 Range/Units Bedside Glucose 97 70-90 mg/dl
[2016-10-08] MEDS: ENOXAPARIN 40 MG/0.4 ML SYR SC SCH (21:30)
[2016-10-08] MEDS: SIMVASTATIN 80 MG TAB PO SCH (21:30)
[2016-10-08] MEDS: METOPROLOL TARTRATE 1 MG/ML VIAL IV PRN (23:41)
[2016-10-09] MEDS: HYDROCODONE/ACETAMOPHEN 5/325MG TAB PO PRN ×2 (00:24→04:43)
[2016-10-09 04:38] VITALS: BP 125/84; PULSE 62; TEMP 36.6; O2SAT 96
[2016-10-09] MEDS: INSULIN ASPART 100 UNITS/ML 3 ML PEN SC SCH (07:00)
[2016-10-09 07:39] VITALS: BP 90/63; PULSE 60; TEMP 36.9; O2SAT 97
[2016-10-09] MEDS: FLUTICASONE/SALMETEROL 250/50 (ADVAIR) 14 PUFF/1 INHALER INH SCH (07:42)
[2016-10-09] MEDS: NIFEdipine 30 MG CR TAB PO SCH (07:42)
[2016-10-09] MEDS: METHOCARBAMOL 750 MG TAB PO SCH (07:43)
[2016-10-09] MEDS: LOSARTAN POTASSIUM 50 MG TAB PO SCH (07:43)
[2016-10-09] MEDS: PANTOprazole SOD 40 MG TAB PO SCH (07:43)
[2016-10-09] MEDS: NICOTINE 21 MG/24 HR TDSY TD SCH (07:44)
[2016-10-09] MEDS: HYDROCHLOROTHIAZIDE 25 MG TAB PO SCH (07:44)
[2016-10-09] MEDS ORDERED: METOPROLOL SUCC 25MG EXT REL TAB PO SCH ×2 (09:00→21:00)
[2016-10-09] MEDS ORDERED: CZR25 PO (09:56)
[2016-10-09] MEDS ORDERED: TPRSR25 PO (09:56)
--- NOTE | 2016-10-09 09:59 | Discharge Instructions ---
Discharge Instructions Date of Service Oct 09, 2016. Admission Reason for Admission: Palpitations, Svt Discharge Discharge Diagnosis / Problem: Atrial tachycardia Discharge Goals Goal(s): Decrease discomfort, Improve function Activity Recommendations Activity Limitations: resume your previous activity . Instructions / Follow-Up Instructions / Follow-Up FOLLOW UP WITH FAMILY DOCTOR ON WEDNESDAY SCHEDULED FOLLOWUP WITH CARDIOLOGY IN 2-3 WEEKS OR SCHEDULED CHANGE IN MEDICATIONS: TOPROL XL CHANGED TO 25MG TWICE DAILY LOSARTAN CHANGED TO 25MG ONCE DAILY. ADVICE TO AVOID CAFFEINE. Current Hospital Diet Patient's current hospital diet: AHA Diet (Heart Healthy), Diabetes Type 2 Diet Discharge Diet Recommended Diet: AHA Diet (Heart Healthy) Pending Studies Studies pending at discharge: no Laboratory Results Hemoglobin A1c Test 10/08/16 06:10 Range/Units Estimated Average Glucose 114 mg/dl Hemoglobin A1c 5.6 4.5-5.6 % Medical Emergencies . Who to Call and When: Medical Emergencies: If at any time you feel your situation is an emergency, please call 911 immediately. . Non-Emergent Contact Non-Emergency issues call your: Primary Care Provider . . "Provider Documentation" section prepared by J Carlos Beaver. . VTE Core Measure Inpt VTE Proph given/why not?: Enoxaparin (Lovenox)SQ
[2016-10-09 10:11] VITALS: BP 90/63; PULSE 60; TEMP 36.9; O2SAT 97
--- NOTE | 2016-10-09 10:40 | PROGRESS NOTE ---
DATE: 10/09/2016 The patient seen and examined. Chart, medications, telemetry reviewed. SUBJECTIVE: The patient last evening, still had multiple salvos of paroxysmal atrial tachycardia that was after getting morning dose of Toprol, has now settled down nicely. She has been ambulatory in the hallway. Notes no cardiac complaints. Notes no chest pains or discomfort. Overall, feels well. Is anxious to be discharged. OBJECTIVE: VITAL SIGNS: Heart rate 60, blood pressure was low initially at 90/63 this morning. NECK: Thin. There is no jugular venous distention. There are no carotid bruits. LUNGS: Clear to auscultation. CARDIOVASCULAR: Regular. There is no S3 gallop. ABDOMEN: Soft, nontender. EXTREMITIES: Without cyanosis or clubbing. There is no peripheral edema. There are intact distal pulses. There are no cord or Homans sign. DATA: EKG this morning reveals sinus rhythm with paroxysmal atrial tachycardia/ectopic atrial rhythm. PLAN: Will be to increase Toprol-XL to 25 mg twice per day. Reduce losartan to 25 mg a day to aid blood pressure. Plan close cardiology followup post-hospital discharge with arrangements to be made. FATOU
--- NOTE | 2016-10-09 19:43 | Progress Note ---
Internal Med Progress Note Date of Service: Oct 09, 2016. Provider Documentation: SUBJECTIVE: resting comfortably no more tachycardia since last night no chest pain wants to be discharged OBJECTIVE: Vital Signs-as noted below Exam: General-alert and oriented. Not in distress ENT-normal hearing Neck-no neck masses Lungs-cta b/l no wheezing or crackles Heart-s1 and s2 heard regular no murmurs Abdomen-soft bowel sounds present nontender no distension Extremities-no edema no erythema Neuro-alert and oriented moves extremities Lab data as noted below. ASSESSMENT & PLAN: PAROXYSMAL Atrial tachycardia converted to NSR with iv Lopressor in Er again today having episodes of atrial tachycardias Intially cardiology increased Toprol xl to 25mg daily echo shows normal EF, no Wall motion abnormalities,has sigmoid septum monitor in tele discharged on Toprol xl 25mg bid f/u with cardiology HYPERTENSION Continue nifedipine, HCTZ and losartan and metoprolol succinate as above Losartan dose decreased to 25mg daily as Toprol xl dose is increased DM TYPE 2 Holding metformin Insulin sliding scale coverage d/c on home meds hba1c 5.6 COPD/ ASTHMA Not in acute exacerbation Continue home inhaler DYSLIPIDEMIA Continue statin TOBACCO ABUSE Counselled for cessation Nicotine patch Discharged home Vital Signs: Date Time Temp Pulse Resp B/P (MAP) Pulse Ox O2 Delivery O2 Flow Rate FiO2 10/09/16 10:11 36.9 60 19 97 Room Air 10/09/16 08:00 Room Air 10/09/16 07:39 36.9 60 19 90/63 (72) 97 Room Air 10/09/16 04:38 36.6 62 17 125/84 (98) 96 Room Air 10/09/16 04:00 Room Air 10/08/16 23:59 Room Air 10/08/16 23:41 139 131/85 10/08/16 22:48 36.6 82 20 130/89 (103) 94 Room Air 10/08/16 20:00 97 Room Air Lab Results: Results Past 24 Hours Test 10/08/16 20:20 10/09/16 06:43 Range/Units Bedside Glucose 117 103 70-90 mg/dl
--- NOTE | 2016-10-09 19:46 | Discharge Summary ---
Discharge Summary Date of Service Oct 09, 2016. Discharge Summary Admission Date: Oct 07, 2016 at 17:06 Discharge Date: Oct 09, 2016 Discharge Disposition: Home Principal Diagnosis: PALPITATIONS ATRIAL TACHYCARDIA Secondary Diagnoses/Problems: 1) Anxiety Status: Chronic (2) Asthma Status: Chronic (3) COPD (chronic obstructive pulmonary disease) Status: Chronic (4) Depression Status: Chronic (5) DM type 2 (diabetes mellitus, type 2) Status: Chronic (6) GERD (gastroesophageal reflux disease) Status: Chronic (7) Hyperlipidemia Status: Chronic (8) Hypertension Status: Chronic Procedures: CXR: No active disease in the chest ECHO: * The left ventricle is normal in size. * There is mild concentric left ventricular hypertrophy. * The basal septum is thickened and angulated consistent with sigmoid septum. * The left ventricular wall motion is normal. * Left ventricular systolic function is normal. * Ejection Fraction = 60-65%. * Grade I diastolic dysfunction, (abnormal relaxation pattern). Consultations: CARDIOLOGY Medication Reconciliation New Medications: Losartan Potassium (Losartan Potassium) 25 Mg Tab 25 MG PO DAILY, #30 TAB 2 Refills Metoprolol Succinate (Metoprolol Succinate ER) 25 Mg Tabcr 25 MG PO BID, #60 2 Refills Continued Medications: Albuterol Hfa (Ventolin Hfa) 200 Puffs/29515 Mcg Aers 2 PUFFS INH Q4H PRN for SOB/Wheezing, #1 INHALER Fluticasone Prop/Salmeterol (Advair Diskus 250/50 60 Dose) 1 Ea Aerp 2 PUFF INH QAM, INHALER Furosemide (Lasix) 40 Mg Tab 40 MG PO QAM PRN for leg swelling, TAB Hydrochlorothiazide (Hydrochlorothiazide) 12.5 Mg Tab 1 TAB PO DAILY for 90 Days, #90 TAB 3 Refills Lorazepam (Ativan) 0.5 Mg Tab 0.5 MG PO BID PRN, TAB Metformin Ext Rel (Glucophage Ext Rel) 500 Mg Tab 500 MG PO QAM, TAB Methocarbamol (Robaxin) 750 Mg Tab 750 MG PO BID, TAB Nifedipine (Procardia Xl Ext Rel) 60 Mg Tab 60 MG PO QAM, TAB Pantoprazole Sodium (Protonix) 40 Mg Tab 40 MG PO QAM, #30 TAB Simvastatin (Zocor) 80 Mg Tab 80 MG PO HS, TAB [Lortab 5/500MG] () 1-2 TABS PO Q4-6HRS Discontinued Medications: Losartan Potassium (Cozaar) 50 Mg Tab 50 MG PO DAILY, TAB Metoprolol Succinate (Toprol Xl) 25 Mg Tab 12.5 MG PO DAILY, #30 TAB Admission Information HPI (per Admitting provider): This is a 51 year old female with PMH of hyeprtension, dyslipidemia, DM 2, asthma, COPD, current smoker, and other problems listed below who presents to the ED for palpitations. Patient states palpitations described as heart racing started yesterday evening while gardening. The episode resolved after a few seconds She had another episode last night also lasting a few seconds. Pt states episodes occur randomly at rest or with activity. Then today at work she felt palpitations throughout the day. She reports associated lightheadedness. No syncope. She had a dry cough this afternoon. States her legs are mildly more swollen than usual today. Had 1 episode diarrhea this afternoon. No fever, chills, URI symptoms, SOB, MOCTEZUMA, orthopnea, chest pain, N/V, abdominal pain, urinary changes, calf pain, abnormal bleeding, anxiety. In the ER she was noted to have short runs of narrow complex tachycardia on the monitor with rate up to 120s. She received Lopressor 5 mg IV. She is now feeling asymptomatic. She took her usual medications today including metoprolol succinate 12.5 mg qAM. She reports drinking 3 pots of coffee daily. She reports prior palpitations years ago for which she saw Suzanne Mckeon PA-C whose note mentioned Holter monitor 2011 showing predominantly normal sinus rhythm and 02/2012 nuclear stress test was nonischemic. No prior dx of arrhythmia or CAD. Physical Exam (per Admitting): General Appearance: WD/WN, no apparent distress, + pertinent finding (alert coopertive 51 year old female, at bedside) Head: normocephalic, atraumatic Eyes: normal inspection, PERRL, sclerae normal ENT: hearing grossly normal, pharynx normal Neck: supple, no JVD, trachea midline Respiratory/Chest: lungs clear, normal breath sounds, no respiratory distress, no accessory muscle use Cardiovascular: regular rate, rhythm, no murmur, normal peripheral pulses Abdomen/GI: normal bowel sounds, non tender, soft Extremities/Musculoskelatal: normal inspection, no calf tenderness, no pedal edema Neurologic/Psych: alert, normal mood/affect, oriented x 3 Skin: normal color, warm/dry Hospital Course PAROXYSMAL Atrial tachycardia converted to NSR with iv Lopressor in Er again today having episodes of atrial tachycardias Intially cardiology increased Toprol xl to 25mg daily echo shows normal EF, no Wall motion abnormalities,has sigmoid septum monitor in tele discharged on Toprol xl 25mg bid f/u with cardiology HYPERTENSION Continue nifedipine, HCTZ and losartan and metoprolol succinate as above Losartan dose decreased to 25mg daily as Toprol xl dose is increased DM TYPE 2 Holding metformin Insulin sliding scale coverage d/c on home meds hba1c 5.6 COPD/ ASTHMA Not in acute exacerbation Continue home inhaler DYSLIPIDEMIA Continue statin TOBACCO ABUSE Counselled for cessation Nicotine patch Discharged home Total time spent on discharge = 35MINUTES This includes examination of the patient, discharge planning, medication reconciliation, and communication with other providers. Discharge Instructions Please take this sheet to every appointment for the next month Discharge Instructions Date of Service Oct 09, 2016. Admission Reason for Admission: Palpitations, Svt Discharge Discharge Diagnosis / Problem: Atrial tachycardia Discharge Goals Goal(s): Decrease discomfort, Improve function Activity Recommendations Activity Limitations: resume your previous activity . Instructions / Follow-Up Instructions / Follow-Up FOLLOW UP WITH FAMILY DOCTOR ON WEDNESDAY SCHEDULED FOLLOWUP WITH CARDIOLOGY IN 2-3 WEEKS OR SCHEDULED CHANGE IN MEDICATIONS: TOPROL XL CHANGED TO 25MG TWICE DAILY LOSARTAN CHANGED TO 25MG ONCE DAILY. ADVICE TO AVOID CAFFEINE. Current Hospital Diet Patient's current hospital diet: AHA Diet (Heart Healthy), Diabetes Type 2 Diet Discharge Diet Recommended Diet: AHA Diet (Heart Healthy) Pending Studies Studies pending at discharge: no Laboratory Results Hemoglobin A1c Test 10/08/16 06:10 Range/Units Estimated Average Glucose 114 mg/dl Hemoglobin A1c 5.6 4.5-5.6 % Medical Emergencies . Who to Call and When: Medical Emergencies: If at any time you feel your situation is an emergency, please call 911 immediately. . Non-Emergent Contact Non-Emergency issues call your: Primary Care Provider . . "Provider Documentation" section prepared by J Carlos Beaver. . VTE Core Measure Inpt VTE Proph given/why not?: Enoxaparin (Lovenox)SQ
[2016-10-10] MEDS ORDERED: LOSARTAN POTASSIUM 25 MG TAB PO SCH (09:00)
== END 2016-10-09 11:04 | disposition home or self-care (01) ==
LOC: C.EDB 15:07 → C.2E 17:06 → ENRESERV 17:42
PROVIDERS: ADMIT Internal Medicine; ATTEND Internal Medicine
DX: R00.2 Palpitations (principal); I47.1 Supraventricular tachycardia; J44.9 Chronic obstructive pulmonary disease, unspecified; E11.9 Type 2 diabetes mellitus without complications; K21.9 Gastro-esophageal reflux disease without esophagitis; E78.5 Hyperlipidemia, unspecified; I10 Essential (primary) hypertension; F41.9 Anxiety disorder, unspecified; J45.909 Unspecified asthma, uncomplicated; F17.200 Nicotine dependence, unspecified, uncomplicated; Z90.710 Acquired absence of both cervix and uterus; Z98.890 Other specified postprocedural states; Z82.49 Family history of ischemic heart disease and other diseases of the circulatory system; Z80.1 Family history of malignant neoplasm of trachea, bronchus and lung

== ENCOUNTER → 2016-11-03 | Outpatient (CLI) | payer BC ==
[~2016-11-03] MED LIST changes: -ALBUAER19 INH; +CZR25 PO; +HYDR12.55 PO; -HYDR1TAB2 PO; -HYZ/50125 PO; +LORTAB PO; +METH-307 PO; +TPRSR25 PO; +VNTHFA/IN INH
--- NOTE | 2016-11-03 08:19 | DIAGNOSTIC IMAGING REPORT ---
L-SPINE MIN 4 VIEWS ROUTINE HISTORY: Pain M54.9 COMPARISON: None. FINDINGS: There is no fracture. No subluxation. Moderate generalized degenerative disc changes throughout. Moderate osteophytic changes throughout. Mild degenerative changes posterior elements at L5-S1. IMPRESSION: Moderate degenerative disc change throughout the entire lumbar region. No acute process. The above report was generated using voice recognition software. It may contain grammatical, syntax or spelling errors. Electronically signed by: Carlo Greco M.D. 11/03/2016 8:18 AM Dictated Date/Time: 11/03/2016 8:17 AM
== END | disposition home or self-care (01) ==
LOC: C.RAD 07:46
PROVIDERS: ATTEND Physician Assistant
DX: M54.9 Dorsalgia, unspecified (principal)

== ENCOUNTER 2024-01-11 06:47 | Observation (INO) ==
[2024-01-11] MEDS: ASPIRIN 325 MG ECTAB PO ONE (07:30)
--- NOTE | 2024-01-11 07:33 | History & Physical Bridge Note ---
Date of Service January 11, 2024 History & Physical Bridge Note I have examined the patient, reviewed the History & Physical and in the interval since the performance of the History & Physical I have noted the following changes of clinical significance: no changes noted
--- NOTE | 2024-01-11 07:35 | Pre Anesthesia Assessment ---
Date of Service January 11, 2024 Pre Sedation Assessment Vital Signs Pulse Resp BP Pulse Ox O2 Del Method 01/11/24 07:01 84 14 160/100 H 96 Room Air Cardiovascular + regular rate and + regular rhythm + S1 normal and + S2 normal; no murmur + femoral pulses present and + radial pulses present; no JVD no edema Respiratory + respiratory effort normal; no respiratory distress + clear to auscultation bilaterally; no crackles, no rales, no rhonchi and no wheezes Pre-Sedation Airway Assessment Smoking Status: Current every day smoker Mallampati Class: II ASA: ASA3 NPO Status Date of Last Intake of Fluids: 01/10/24 Date of Last Intake of Solid Food: 01/10/24 Procedure Planning Contraindications for Sedation: none Current Medications Reviewed: Yes Notes The planned sedation has been discussed with the patient. Informed Consent was obtained. I have identified the patient, determined the appropriateness of sed ation and have assessed the patient immediately prior to the procedure. All medicine(s) and interventions are by my order.
--- NOTE | 2024-01-11 09:00 | Post Anesthesia Assessment ---
Date of Service January 11, 2024 Post Sedation Assessment Vital Signs Temp Pulse Pulse Resp BP Pulse Ox O2 Del Method 01/12/24 12:17 37.0 C 73 18 127/76 95 01/12/24 11:26 70 01/12/24 11:12 37.0 C 73 18 127/76 95 Room Air 01/12/24 10:34 76 16 96 Room Air 01/12/24 07:51 82 14 92 Room Air 01/12/24 07:23 37.2 C 76 18 134/73 93 Room Air 01/12/24 04:37 89 114/69 01/12/24 03:44 78 16 91 Room Air 01/12/24 03:20 37.2 C 84 18 127/69 94 Room Air 01/12/24 00:10 84 18 91 Room Air 01/11/24 22:52 37.3 C 76 18 149/72 H 94 Room Air 01/11/24 22:41 76 149/72 H 01/11/24 21:47 73 01/11/24 20:41 71 18 94 Room Air 01/11/24 20:28 80 163/82 H 01/11/24 19:24 36.9 C 81 20 162/80 H 96 Room Air 01/11/24 16:38 79 22 96 Room Air 01/11/24 15:39 37.1 C 62 18 169/86 H 96 Room Air 01/11/24 14:42 37.1 C 72 18 150/80 H 95 Room Air FiO2 01/12/24 12:17 01/12/24 11:26 01/12/24 11:12 01/12/24 10:34 01/12/24 07:51 21 01/12/24 07:23 01/12/24 04:37 01/12/24 03:44 01/12/24 03:20 01/12/24 00:10 01/11/24 22:52 01/11/24 22:41 01/11/24 21:47 01/11/24 20:41 01/11/24 20:28 01/11/24 19:24 01/11/24 16:38 01/11/24 15:39 01/11/24 14:42 Recovery Score Respiration: Deep Breath/Cough Circulation: +/-20% PreAnes Value Consciousness: Arouseable (by name) Oxygen Saturation: > 92% On Room Air Discharge Sedation Level of Care: Phase I Post Sedation Plan On clinical assessment, the patient appears to have tolerated the sedation without complications. Patient is recovering as anticipated. Patient will continue to be monitored by nursing and may be discharged when sedation discharge criteria are met per below protocol. Upon Completions of procedure up to 15 minutes continue every 5 minute vital signs and the P.A.R. score; then discharge to a Phase I or Fast Track to Phase II per the following guidelines: * Discharge Patient to appropriate Phase II area if PAR is 8 or greater or return to pre- procedure baseline. The post - procedure orders will be as directed. * If PAR score is less than 8 or not return to pre-procedure baseline then patient will follow Phase I monitoring till PAR is reached for Phase II. The Phase I may be done in procedure room or may call to secure a Phase I area. * If naloxone or flumazenil are used for reversal, hold in Phase I for continued monitoring from when last reversal dose was given for a minimum of 60 minutes or longer pending the nurse and/or physician discretion of patient condition before discharge to Phase II. Please call the Sedation Physician to re-evaluate and complete post-note for discharge to Phase II area. Do NOT discharge from procedure sedation or Phase 1 until post- sedation evaluation note is complete by procedure /sedation MD Sedation Discharge Instructions to be given to the patient at discharge to home.
--- NOTE | 2024-01-11 09:13 | Cardiac Catheterization ---
Cardiac Cath Procedure Full Procedure Date January 11, 2024 Pre-Procedure Diagnosis Pre-Procedure Diagnosis: Angina and Positive Stress Test AUC Score AUC Score: 7 Post-Procedure Diagnosis Post-Procedure Diagnosis: Severe CAD and Elevated Intracardiac Pressures Procedure(s) Performed Procedure(s) Performed: Coronary Angiography and Left Heart Cath Condemnation Engineer Zachariah Romero DO Nremt(s) Levir QA AUTOMATION ARCHITECT Estimated Blood Loss Estimated Blood Loss: 4cc Medication(s) Medication(s): Fentanyl, Heparin, Lidocaine 1%, Nicardipine, Nitroglycerin and Versed Summary of Findings The coronary arteries are diffusely calcified. 99% ostial RCA 'Napkin ring' ostial Lcx possibly severe 60% mid Lcx Hemodynamics Rest Ao:: 179/83/123 Final Ao: 179/72/114 LV: 181//24 Recommendations Recommendations: PCI without planned CABG (Interventional cardiology consulted for further evaluation of ostial left circumflex and ostial RCA stenosis.) Specimens Specimens: None Radiation Exposure (mGy) 469 Contrast (mls) 45 Fluids (cc crystalloids) Fluids (cc crystalloids): 50 Nss Drains Drains: n/A Anesthesia Moderate sedation. Start 0830. End 0844. Sedation monitor: El GONZALEZ Procedural Complication(s) None Disposition Patient remained in Air Compressor Mechanic for further evaluation of left circumflex and I attest to the content of the Intraoperative Record and any orders documented therein. Any exceptions are noted below. ACC Data: Air Compressor Mechanic Cardiac Status Clinical evaluation leading to the procedure 58-year-old female with progressive shortness of breath. Abnormal Lexiscan nuclear stress test demonstrating inferior lateral ischemia. CAD Presenation: Positive Stress Test and Stable angina Anginal Classification: CCS III Heart Failure: No Stress Studies Past 6 Months: Yes Stress Testing w/SPECT MPI: Yes - Positive and Risk/Extent of Ischemia (High) Coronary Anatomy Dominant: Right Left Main (% Stenosis): Normal LAD (% Stenosis): Proximal (20%) and Mid (20%) D1 (% Stenosis): Proximal (60%) and Mid (40%) Circumflex (% Stenosis): Ostial ('Napkin ring' not significant per IVUS with Dr. Terrazas) and Mid (70%) OM1 (% Stenosis): Ostial (50%, small vessel) RCA (% Stenosis): Ostial (99% extending to proximal segment.), Mid (50% early mid) and Distal (20%) R PL1 (% Stenosis): Normal Diagnostic Physicians Name: Zachariah Romero DO Closure Device Closure Device: Radial Band Recommendations: PCI without planned CABG (Interventional cardiology consulted for further evaluation of ostial left circumflex and ostial RCA stenosis.) Intraprocedure Events Significant Disection: No Perforation: No
--- NOTE | 2024-01-11 09:51 | History & Physical Report ---
Date of Service January 11, 2024 Assessment & Plan (1) Abnormal nuclear stress test: (2) Angina of effort: (3) Dyslipidemia: Plan Risk, benefits, alternatives to cardiac catheterization reviewed. Patient agreeable to proceed. She forgot to take a.m. dose of aspirin which will be administered now, prior to procedure. Consent obtained and charted. Blood pressure mildly elevated, however, will treat after patient received sedation in Desk Top Publisher. Further recommendations pending coronary angiography result. History of Present Illness Chief Complaint: Shortness of breath Primary Care Provider: Alisha Horn MD 58-year-old female with progressive shortness of breath. Denies chest discomfort. No orthopnea, PND, or lower extremity edema. Recent Lexiscan nuclear stress test performed 12/21/2023 demonstrating inferolateral ischemia. She is referred today for cardiac catheterization. Risk factors include hypertension, dyslipidemia, diabetes, and tobacco abuse. Allergies Allergy/AdvReac Type Severity Reaction Status Date / Time lisinopril AdvReac Unknown COUGH Unverified 02/11/12 12:05 Home Medications Medication Instructions Recorded Confirmed Type FLUTICASONE PROP/SALMETEROL 2 puff inhalation QAM #0 Inhalers 02/11/12 History (Advair Diskus 250/50 60 Dose) FUROSEMIDE (LASIX) 40 mg PO QAM PRN leg swelling #0 02/11/12 History tabs LORAZEPAM (ATIVAN) 0.5 mg PO BID PRN #0 tabs 02/11/12 History METFORMIN EXT REL (GLUCOPHAGE EXT 500 mg PO QAM #0 tabs 02/11/12 History REL) NIFEDIPINE (PROCARDIA XL EXT REL) 60 mg PO QAM #0 tabs 02/11/12 History PANTOPRAZOLE SODIUM (PROTONIX) 40 mg PO QAM #30 tabs 02/11/12 History SIMVASTATIN (ZOCOR) 80 mg PO HS #0 tabs 02/11/12 History ALBUTEROL HFA (VENTOLIN HFA) 2 puff inhalation Q4H PRN 10/07/16 History SOB/Wheezing #1 inhaler HYDROCHLOROTHIAZIDE 1 tab PO DAILY 90 days #90 tabs 10/07/16 History LORTAB 5/500MG 1 - 2 tabs PO Q4-6HRS ##0 10/07/16 History Methocarbamol (Robaxin) 750 mg PO BID #0 tabs 10/07/16 History Losartan Potassium 25 mg PO DAILY #30 tabs 10/09/16 Rx Metoprolol Succinate (Metoprolol 25 mg PO BID ##60 10/09/16 Rx Succinate ER) hydrocodone 5 mg-acetaminophen 325 1 - 2 tab PO Q6H PRN pain #20 tabs 07/06/19 Rx mg tablet ([place]) Past Med/Surg History Problem List (Updated 01/11/24 @ 09:50 by Zachariah Romero DO) DM type 2 (diabetes mellitus, type 2) Dyslipidemia Hypertension Angina of effort Abnormal nuclear stress test Palpitations Medical History (Updated 01/11/24 @ 09:50 by Zachariah Romero DO) Asthma SVT (supraventricular tachycardia) Depression Anxiety GERD (gastroesophageal reflux disease) Hyperlipidemia COPD (chronic obstructive pulmonary disease) Surgical History S/P LLOYD-BSO S/P laparoscopic cholecystectomy Social History Smoking Status: Current every day smoker Tobacco Type: Cigarettes Second Hand Exposure: No; Do You Dip or Chew Tobacco: No; Tobacco Cessation Education Requested by Patient: No Hx Alcohol Use: No Hx Substance Use: Yes Preferred Language: Polish Superintendent Sanitation Required: No Beliefs That Will Affect Care: None Current Living Situation: Family Other Information That Helps Us Care for You: No Feels Safe at Home: Yes Safety Concerns: Feels Safe At This Time Review of Systems Review of Systems: All systems reviewed & are unremarkable except as noted in Subjective Physical Exam Constitutional: well nourished; no acute distress ENMT: Mallampati Class: II Respiratory: normal respiratory effort; no respiratory distress Auscult ation: lungs clear to auscultation bilaterally; no crackles, no rales, no rhonchi and no wheezes Cardiovascular: Rate/Rhythm: regular rate and regular rhythm Heart Sounds: normal S1 and normal S2; no murmur Vessels: femoral pulses present and radial pulses present; no JVD Extremities: no edema Gastrointestinal (Abdomen): Inspection/Auscultation: normal bowel sounds; abdomen not distended Percussion/Palpation: abdomen nontender, no guarding and abdomen not rigid Neurologic: CN's II-XI intact bilaterally and moves all extremities; no focal motor deficits Results & Data Results & Data Vital Signs (Past 12 Hours) Vital Signs Pulse Resp BP Pulse Ox O2 Del Method 01/11/24 07:01 84 14 160/100 H 96 Room Air
[2024-01-11] MEDS: MIDAZOLAM HCL 1 MG/ML 2ML VIAL ONE ×5 (10:36→11:22)
[2024-01-11] MEDS: HEPARIN (PORCINE) 1000 UNIT/ML 10 ML (CATH LAB USE ONLY) ONE ×2 (10:36→10:41)
[2024-01-11] MEDS: fentaNYL citrate PF 100 MCG/2 ML VIAL ONE ×3 (10:37→11:23)
[2024-01-11] MEDS: NITROGLYCERIN/D5W 100MCG/ML 20ML SYR ONE ×2 (10:38→13:02)
[2024-01-11] MEDS: niCARdipine HCL INJ 2.5 MG/ML 10 ML AMP ONE (10:38)
[2024-01-11] MEDS: OPTIRAY 350 ONE (11:30)
[2024-01-11] MEDS: TICAGRELOR 90 MG TAB ONE (11:35)
--- OUTSIDE RECORDS SUMMARY | 2024-01-11 11:56 | External Medical Summary | Summary of Care ---
Author Name Unknown Organization [facility] Address [address] [place] [address] Phone [phone] Care Team Providers Care Meter Record Clerk Name Role Phone Alisha Horn MD Primary Care Provider [phone] Reason for Visit * Reason Onset Date Comments Information 01/04/2024 Encounter Details Date Type Department Care Team (Late st Contact Info) Description 01/04/2024 Telephone Cardiology, [facility] [address] [place] [address] Ramesh Lyman, [address] [place] [address] Information Allergies Active Allergy Reactions Criticality Noted Date Comments Cristi Inhibitors Low 10/15/2004 cough documented as of this encounter (statuses as of 01/06/2024) Medications Medication Sig Dispensed Refills Start Date End Date Status ALBUTEROL 90 MCG/ACT IN AERSIndications:COPD with emphysema (HCC) 2 puffs every 4 hrs as needed 1 MDI 5 02/02/2007 Active PROTONIX 40 MG PO TBECIndications:Esophag eal reflux one q hs 30 5 02/02/2007 Active METFORMIN HCL ER (MOD) 500 MG PO [id number]:Preoper ative cardiovascular examination one daily Active PROCARDIA XL 60 MG PO TB24 one daily Active DOCUSATE SODIUM 100 MG PO CAPS as needed Active FUROSEMIDE 40 MG PO TABS One Half tablet as needed 30 Tab 5 12/28/2012 Active CLARITIN 10 MG PO CAPS once daily Ac tive SPIRIVA HANDIHALER 18 MCG IN CAPS once daily Active metoprolol succinate XL (TOPROL XL) 25 MG [id number]:Palpita tions Take 1 Tab by mouth 2 times a day. 60 Tab 5 11/09/2016 Active simvastatin (ZOCOR) 80 MG Tablet Take 1 Tablet by mouth at bedtime. 5 06/16/2017 Active DULERA 200-5 MCG/ACT Inhaler Inhale 2 Puffs by mouth in the morning and 2 Puffs before bedtime. 3 07/08/2017 Active busPIRone HCl 10 MG Oral Tablet (Buspar) Take by mouth 20 mg in the morning AND 20 mg before bedtime. Active Armodafinil 50 MG Oral Tablet take 4 tablets by mouth daily 10/10/2021 Active Baclofen 20 MG Oral Tablet Take 1 Tablet by mouth 3 times a day as needed. 08/09/2021 Active HYDROcodone-Acetaminoph en 5-325 MG Oral Tablet Take by mouth 1 Tablet every 6 hours as needed for Pain, Severe. 20 Tablet 12/29/2021 Active Losartan Potassium 25 MG Oral Tablet (Cozaar) Take 1 Tablet by mouth in the morning. 12/31/2023 Active documented as of this encounter (statuses as of 01/06/2024) Active Problems Problem Noted Date Diagnosed Date Plantar fascia syndrome 06/16/2021 SVT (supraventricular tachycardia) 08/02/2017 COPD, severity to be determined 02/03/2013 Tobacco use disorder 02/22/2012 Abnormal EKG 02/22/2012 Dyslipidemia, goal LDL below 100 04/02/2009 Overview: Per Lipid Taxonomy. Anterior cruciate ligament tear 10/04/2006 Overview: 10/04/06 MRI of Left Knee Impression: 1. Medial meniscal tear 2. ACL tear 3. Extensive contusion tibial plateau with a possible small osteochondral fracture in the posterior corner of the tibial plateau and a small osteochondral defect in the anterior aspect of the medial femoral condyle. 4. Joint effusion with Bakers cyst ADVANCE DIRECTIVE INFORMATION 10/15/2004 Overview: refused information HTN, goal below 140/90 10/15/2004 Asthma with severity to be determined 10/15/2004 Overview: ICD-10 update of inactive term Major depressive disorder 10/15/2004 Overview: ICD-10 update of inactive term Anxiety state 10/15/2004 Esophageal reflux 10/15/2004 documented as of this encounter (statuses as of 01/06/2024) Resolved Problems Problem Noted Date Diagnosed Date Resolved Date PURE HYPERCHOLESTEROLEM 08/10/200503/19 Overview: Per Lipid Taxonomy. documented as of this encounter (statuses as of 01/06/2024) Social History Tobacco Use Types Packs/Day Years Used Date Smoking Tobacco: Every Day Cigarettes 0.8 30 Smokeless Tobacco: Never Alcohol Use Standard Drinks/Week Comments No 0 (1 standard drink = 0.6 oz pur e alcohol) Utilities Answer Date Recorded Do you have trouble paying y our heating, water, or electric bill? (Adult - for ages 18 years and over) Not on file 10/05/2023 Is your family able to pay t he heat, water, or electric bill? (Household - for ages 0-17 years) Not on file 10/05/2023 Does your family have access to good internet? (Household - for ages 0-17 years) Not on file 10/05/2023 Social Connections Answer Date Recorded How often do you feel lonely or isolated from those around you? (Adult - for ages 18 years and over) Not on file 10/05/2023 Sex and Gender Information Value Date Recorded Sex Assigned at Not on file Gender Identity Not on file Sexual Orientation Not on file Job Start Date Occupation Industry Not on file Not on file Not on file documented as of this encounter Miscellaneous Notes * Telephone Encounter - Ramesh Lyman DO - 01/06/2024 5:13 PM EDT I called in follow up. No need for peer to peer. Cath approved from 01/06/24 to 07/04/24 Auth number: [id number] Ramesh Lyman DO * Telephone Encounter - Luc Gould LPN - 01/05/2024 12:35 PM EDT Faxed to [facility] at . * Telephone Encounter - Ramesh Lyman DO - 01/04/2024 5:16 PM EDT Will schedule peer to peer. In meantime, please re-submit nuclear stress test report with addendum made on the report summary: Images were reviewed/interpreted again. There is a moderate-sized reversible inferolateral perfusion defect. Per review of the quantitative analysis, 21% of the perfusion defect is reversible consistent with hemodynamically significant coronary artery disease in this territory with a significant amount of myocardium in jeopardy. Subtle inferolateral hypokinesis noted on gated SPECT images, with ejection fraction > 70%. Ramesh Lyman DO * Telephone Encounter - Jess Navarrete LPN - 01/04/2024 2:02 PM EDT Images from the original note were not included. See prior auth team note in encounter. Called [facility] to insure they had all pt information and testing results in an attempt to avoid peer to peer by initiating a reconsideration. [facility] did have all information, no grounds for reconsideration, peer to peer only. [facility] considers Nuc Stress equivocal d/t "small to moderate reversible inferolateral perfusion defect." Must be moderate or greater. To schedule peer to peer call [phone] option 1 * Telephone Encounter - Mahogany Bradshaw OSA - 01/04/2024 1:29 PM EDT Procedure for 01/11/2024 was denied by [facility] peer to peer can be done by calling opt 2 with case # [id number] documented in this encounter Plan of Treatment Upcoming Encounters Date Type Department Care Team (Late st Contact Info) Description 01/26/2024 7:15 AM EDT Cardiac Studies Cardiac Studies, [facility] [address] [place] Scheduled Procedures Name Priority Associated Diagnoses Date/Ti me COLONOSCOPY FLEXIBLE PROXIMA L DIAGNOSTIC Recall Encounter for screening colonoscopy Health Maintenance Due Date Last Done Comments DISCUSS TOBACCO CESSATION (REFER TO SMARTSET #3742) 1963 Depression Monitoring 1975 HIV Screening 1978 Alpha-1 Antitrypsin 1981 Hepatitis C Screening 1981 O2 ASSESSMENT COMPLETED IN PAST YEAR FOR COPD 1981 DTap/Tdap Vaccines (1 - Tdap) 1982 Cologuard 2008 Fecal Occult Blood Test 2008 Sigmoidoscopy 2008 Lung Cancer Screening 2013 Zoster Vaccines (1 of 2) 2013 *COPD SEVERITY VERIFIED BY PFT 2014 Albumin/Creatinine Ratio 08/20/2020 08/20/2017 *SPIROMETRY ONCE FOR ASTHMA-ADULT 03/12/2022 Lipid Panel 08/20/2022 08/20/2017, 04/20, 08/17/2013, Additional history exists COVID-19 Vaccine ( season) 2023 06/12/2020, 05/22/2020 Influenza Vaccine (FLU shot) (#1) 2023 01/21/2023, 01/21/2023, 02/02/2022, Additional history exists Mammogram 07/28/2024 07/29/2023 GFR 01/03/2025 01/04/2024, 12/18, 12/28/2023, Additional history exists Diabetes Screening 01/03/2027 01/04/2024, 0 12/31/2023, 12/28/2023, Additional history exists Colonoscopy 08/04/2027 08/03/2017, 08/03/2017 Colorectal Cancer Screening 08/04/2027 Pneumococcal Vaccine: Pediatrics (0 to 5 Years) and At-Risk Patients (6 to 64 Years) Completed 02/02/2022 HPV (Gardasil) Vaccine Aged Out No lo nger eligible based on patient's age to complete this topic Hepatitis B Vaccine Aged Out No longe r eligible based on patient's age to complete this topic MENINGOCOCCAL (MENACTRA/MENVEO) Aged Out No longer eligible based on patient's age to complete this topic documented as of this encounter Medical Devices Implanted Type Area Healthcare Marketer Device Identifier Shelf Expiration Date Model / Serial / Lot Desaudrey One Single Incision Sling System Implanted:Qty: 1 on 02/20/2022 by Zane Gaines MD at OR [facility] N/A: Vagina [employer] 04/16/2023 [id number] / / [id number] documented as of this encounter Advance Directives * Full Code (Latest Code Status on File) Date Activated Date Inactivated Comments 02/20/2022 10:20 AM 02/20/2022 3:39 PM This order reflects the patients wishes and were consensually agreed upon. Question Answer Comments Discussion of Advance Directives occurred with: Patient Does the patient have a Living Will? No Does the patient have Health Care Power of Attor emmanuelle? No Care Teams Meter Record Clerk Relationship Specialty Start Date End Date Alisha Horn MD [address] [place] [address] PCP - General Family Medicine 10/19/23 documented as of this encounter
--- OUTSIDE RECORDS SUMMARY | 2024-01-11 11:56 | External Medical Summary | Summary of Care ---
Author Name Unknown Organization [facility] Address [address] [facility] [place] [address] Phone [phone] Care Team Providers Care Personal Banking Representative Name Role Phone Alisha Horn MD Primary Care Provider [phone] Reason for Visit * Reason Onset Date Comments Abnormal Test Results 12/31/2023 Procedure 12/31/2023 Advice 12/31/2023 Encounter Details Date Type Department Care Team (Late st Contact Info) Description 12/31/2023 Telephone Cardiology, [facility] [address] [place] [address] Ramesh Lyman, [address] [place] [address] Abnormal Test Results; Procedure; Advice Allergies Active Allergy Reactions Criticality Noted Date Comments Cristi Inhibitors Low 10/15/2004 cough documented as of this encounter (statuses as of 01/07/2024) Medications Medication Sig Dispensed Refills Start Date End Date Status ALBUTEROL 90 MCG/ACT IN AERSIndications:COPD with emphysema (HCC) 2 puffs every 4 hrs as needed 1 MDI 5 02/02/2007 Active PROTONIX 40 MG PO TBECIndications:Esop hageal reflux one q hs 30 5 02/02/2007 Active METFORMIN HCL ER (MOD) 500 MG PO [id number]:Preo perative cardiovascular examination one daily Active PROCARDIA XL 60 MG PO TB24 one daily Active DOCUSATE SODIUM 100 MG PO CAPS as needed Active FUROSEMIDE 40 MG PO TABS One Half tablet as needed 30 Tab 5 12/28/2012 Active CLARITIN 10 MG PO CAPS once daily Active SPIRIVA HANDIHALER 18 MCG IN CAPS once daily Active metoprolol succinate XL (TOPROL XL) 25 MG [id number]:Palp itations Take 1 Tab by mouth 2 times [...] times a day as needed. 08/09/2021 Active HYDROcodone-Acetamin ophen 5-325 MG Oral Tablet Take by mouth 1 Tablet every 6 hours as needed for Pain, Severe. 20 Tablet 12/29/2021 Active Losartan Potassium 25 MG Oral Tablet (Cozaar) Take 1 Tablet by mouth in the morning. 12/31/2023 Active Losartan Potassium 50 MG Oral Tablet (Cozaar) Take 1 Tablet by mouth in the morning. 90 Tablet 3 12/21/2023 12/31/2023 Discontinue d(Patient preference/ discontinua tion) documented as of this encounter (statuses as of 01/07/2024) Active Problems Problem Noted Date Diagnosed Date [...] as of this encounter (statuses as of 01/07/2024) Resolved Problems Problem Noted Date Diagnosed Date Resolved Date PURE HYPERCHOLESTEROLEM 08/10/200503/19 Overview: Per Lipid Taxonomy. documented as of this encounter (statuses as of 01/07/2024) Social History Tobacco Use Types Packs/Day Years [...] encounter Miscellaneous Notes * Telephone Encounter - Lashell Can OSA - 01/07/2024 12:53 PM EDT Person calling: Patient Relationship to patient: Patient Number to return call: [phone] Reason for call: advice Pharmacy: N/A Provider Name: Nura, Ramesh J, DO Detailed message to office: Patient [facility] the office was setting up for her and to inquire about her last lab results. Requesting call back. States that due to low sodium, she was told cath might not take place buthas not heard back since. * Telephone Encounter - Ramesh Lyman DO - 12/31/2023 3:25 PM EDT Patient had a repeat basic metabolic panel today 12/31/2023. I personally called patient reviewed her results with her. She states that she feels fine exceptionof ongoing dyspnea. She denies any lower extremity edema. Denies change in mental status. Her potassium is improved down to 4.1. Chloride remains unchanged at 91 millimole per liter, sodiumrelatively unchanged and it was still low at 128 millimole per liter. Unfortunately, the sodium levels obtained 3 days ago and again today or the first available sodium levels on the patient since previous measurement in 2017. As noted, the patient was not clinically volume overloaded. Although she has a prescription for furosemide to take it as needed for edema, she has not been taking the furosemide. Question if SIADH is playing a role. She states she drinks 1 bottle of water day, but drinks a pot of coffee. So she may be having significant free water intake from the coffee. Recommendations: Resume losartan but at the previous lower dose of 25 milligrams daily. Cut back on coffee intake Increase salt intake Labs planned for next week on Wednesday (3 days from now). Plan: Basic metabolic panel Sodium, random urine Osmolality, urine Osmolality, serum Pt agreeable. May need to consider Nephrology consultation. Ramesh Lyman DO * Telephone Encounter - Day Ruby CMA - 12/31/2023 11:22 AM EDT Patient agreeable and coming in to get repeat labs today at lab. She will hold Losartan until further notice. * Telephone Encounter - Ramesh Lyman DO - 12/31/2023 11:06 AM EDT Cardiology nursing: Notify patient that I reviewed her pre cardiac catheterization lab results from12/28/2023. Her sodium level was very low, 127 millimole per liter, and her potassium is mildly elevated at 5.4. We would recommend that she hold losartan. She needs a repeat chemistry panel performed as soon as possible, ideally today at [facility] so we get the answer back today. BMP order entered. Ramesh Lyman DO documented in this encounter Plan of Treatment Upcoming Encounters Date Type Department Care Team (Late st Contact Info) Description 01/26/2024 7:15 AM EDT Cardiac Studies Cardiac Studies, [address] [place] [address] Scheduled Orders Name Type Priority Associated Diagnoses Orde r Schedule SODIUM, RANDOM URINE Lab Routine Hyponatremia Expected: 01/03/2024, Expires: 02/17/2024 OSMOLALITY, URINE Lab Routine Hyponatremia Expected: 01/03/2024, Expires: 02/17/2024 Scheduled Procedures Name Priority Associated Diagnoses Date/Ti me COLONOSCOPY FLEXIBLE PROXIMA L DIAGNOSTIC Recall Encounter for screening colonoscopy Health Maintenance Due Date Last Done Comments DISCUSS TOBACCO CESSATION (REFER TO SMARTSET #1125) 1963 Depression Monitoring 1975 HIV Screening 1978 [...] this encounter Medical Devices Implanted Type Area Pool Table Mechanic Device Identifier Shelf Expiration Date Model / Serial / Lot Desara One Single Incision Sling System Implanted:Qty: 1 on 02/20/2022 by Zane Gaines MD at OR [facility] N/A: Vagina [employer] 04/16/2023 [id number] / / [id number] documented as of this encounter Results * OSMOLALITY, SERUM (01/04/2024 2:18 PM EDT) Osmolality, Serum 279 278 - 305 mOsm/kg 01/04/2024 11:39 PM EDT [facility] Blood Venous blood specimen / Unknown Venipuncture / Unknown 01/04/2024 2:18 PM EDT 01/04/2024 2:18 PM EDT Ramesh Lyman DO LAB BLOOD ORDERABLES [facility] [address] [place] [address] * (ABNORMAL) BASIC METABOLIC PANEL (12/31/2023 11:51 AM EDT) BUN 10 6 - 20 mg/dL 12/31/2023 2:35 PM EDT [facility] CREATININE 0.7 0.5 - 1.0 mg/dL 12/31/2023 2:35 PM EDT [facility] EGFR >90 >=60 mL/min 12/31/2023 2:35 PM EDT [facility] Comment:eGFR is calculated b ased on the CKD-EPI 2020 equation. SODIUM 128(L) 135 - 146 mmol/L 12/31/2023 2:35 PM EDT [facility] POTASSIUM 4.1 3.5 - 5.1 mmol/L 12/31/2023 2:35 PM EDT [facility] CHLORIDE 91(L) 98 - 107 mmol/L 12/31/2023 2:35 PM EDT [facility] CO2 27 22 - 32 mmol/L 12/31/2023 2:35 PM EDT [facility] ANION GAP 10 7 - 15 mmol/L 12/31/2023 2:35 PM EDT [facility] GLUCOSE 122(H) 70 - 120 mg/dL 12/31/2023 2:35 PM EDT [facility] CALCIUM 10.1 8.4 - 10.2 mg/dL 12/31/2023 2:35 PM EDT [facility] Blood Venous blood specimen / Unknown Venipuncture / Unknown 12/31/2023 11:51 AM EDT 12/31/2023 11:52 AM EDT Ramesh Lyman DO LAB BLOOD ORDERABLES [facility] [address] [place] [address] documented in this encounter Visit Diagnoses Diagnosis Hyponatremia- Primary Hyposmolality and/or hyponatremia Hyperkalemia Hyperpotassemia documented in this encounter Advance Directives * Full Code [...] Power of Attor emmanuelle? No Care Teams Personal Banking Representative Relationship Specialty Start Date End Date Alisha Horn MD [address] [place] [id number] PCP - General Family Medicine 10/19/23 documented as of this encounter
--- OUTSIDE RECORDS SUMMARY | 2024-01-11 11:56 | External Medical Summary | Summary of Care ---
Author Name Unknown Organization [facility] Address [address] [place] [place] [address] Phone [phone] Care Team Providers Care Juvenile Justice Specialist Name Role Phone Alisha Horn MD Primary Care Provider [phone] Reason for Visit * Reason Onset Date Comments Abnormal Test Results 12/31/2023 Procedure 12/31/2023 Advice 12/31/2023 Encounter Details Date Type Department Care Team (Late st Contact Info) Description 12/31/2023 Telephone Cardiology, [facility] [address] [place] [address] Ramesh Lyman, [address] [place] [address] Abnormal Test Results; Procedure; Advice Allergies Active [...] METFORMIN HCL ER (MOD) 500 MG PO [id number]:Preo perative cardiovascular examination one daily Active PROCARDIA XL 60 MG PO TB24 one daily Active DOCUSATE SODIUM 100 MG PO CAPS as needed Active FUROSEMIDE 40 MG PO TABS One Half tablet as needed 30 Tab 5 12/28/2012 Active CLARITIN 10 MG PO CAPS once daily Active SPIRIVA HANDIHALER 18 MCG IN CAPS once daily Active metoprolol succinate XL (TOPROL XL) 25 MG [id number]:Palp itations Take 1 Tab by mouth 2 [...] encounter Miscellaneous Notes * Telephone Encounter - Irene Batista RN - 01/07/2024 1:43 PM EDT TigerText sent to Dr. Lyman regarding recent lab results 01/03 and upcoming catheterization on 01/11/24. Per Dr. Lyman: Sodium improved, most recently 133. OK to proceed with cardiac catheterization as planned. Called, spoke with patient. Patient verbalizes understanding of all instructions and explanations given. * Telephone Encounter - Lashell Can OSA - 01/07/2024 12:53 PM EDT Person calling: Patient Relationship to patient: Patient Number to return call: [phone] Reason for call: advice Pharmacy: N/A Provider Name: Ramesh Lyman DO Detailed message to office: Patient calling to inquire about appt confirmation for Wednesday at [facility] for a cath that the office was [...] on the patient since previous measurement in 2018. As noted, the patient was not clinically [...] as soon as possible, ideally today at [facility] so we get the answer back today. BMP order entered. Ramesh Lyman DO documented in this encounter Plan of Treatment Upcoming Encounters Date Type Department Care Team (Late st Contact Info) Description 01/26/2024 7:15 AM EDT Cardiac Studies Cardiac Studies, [address] [address] Scheduled Orders Name Type Priority Associated Diagnoses Orde r Schedule SODIUM, RANDOM URINE Lab Routine Hyponatremia Expected: 01/03/2024, Expires: 02/17/2024 OSMOLALITY, URINE Lab Routine Hyponatremia Expected: 01/03/2024, Expires: 02/17/2024 Scheduled Procedures Name Priority Associated Diagnoses Date/Ti me COLONOSCOPY FLEXIBLE PROXIMA L DIAGNOSTIC Recall Encounter for screening colonoscopy Health Maintenance Due Date Last Done Comments DISCUSS TOBACCO CESSATION (REFER TO SMARTSET #1166) 1965 Depression Monitoring 1975 HIV Screening 1978 [...] this encounter Medical Devices Implanted Type Area Life Sciences Teacher Device Identifier Shelf Expiration Date Model / Serial / Lot Desara One Single Incision Sling System Implanted:Qty: 1 on 02/20/2022 by Zane Gaines MD at OR [facility] N/A: Vagina [employer] 04/16/2023 [id number] / / [id number] documented as of this encounter Results * OSMOLALITY, SERUM (01/04/2024 2:18 PM EDT) Osmolality, Serum 279 278 - 305 mOsm/kg 01/04/2024 11:39 PM EDT [facility] Blood Venous blood specimen / Unknown Venipuncture / Unknown 01/04/2024 2:18 PM EDT 01/04/2024 2:18 PM EDT Ramesh Lyman DO LAB BLOOD ORDERABLES [facility] [address] [place] [address] * (ABNORMAL) BASIC METABOLIC PANEL (12/31/2023 11:51 [...] 10.2 mg/dL 12/31/2023 2:35 PM EDT [facility] Blood Venous blood specimen / Unknown Venipuncture / Unknown 12/31/2023 11:51 AM EDT 12/31/2023 11:52 AM EDT Ramesh Chakrabortybury DO LAB BLOOD ORDERABLES [facility] [facility] [place] [address] documented in this encounter Visit Diagnoses Diagnosis [...] Power of Attor emmanuelle? No Care Teams Juvenile Justice Specialist Relationship Specialty Start Date End Date Alisha Horn MD [address] [place], [place] [address] [address] PCP - General Family Medicine 10/19/23 documented as of this encounter
--- OUTSIDE RECORDS SUMMARY | 2024-01-11 11:57 | External Medical Summary ---
Author Name Unknown Address Unknown Organization [id number] [place] [address] Laboratory Report Ordering Provider Test Date Status ASHISH KENT 12/31/2023 11:51:59 Final Observation Date Value Abnormality Reference (Units ) Status BUN 12/31/2023 11:51:59 10 6-20 (mg/dL) Final Creatinine 12/31/2023 11:51:59 0.7 0.5-1.0 (mg/dL) Final Glomerular filtration rate/1.73 sq M.predicted [Volume Rate/Area] in Serum, Plasma or Blood by Creatinine-based formula (CKD-EPI) 12/31/2023 11:51:59 >90 >=60 (mL/min) Final eGFR is calculated based on the CKD-EPI 2020 equation. Sodium 12/31/2023 11:51:59 128 Below low normal 135 -146 (mmol/L) Final Potassium 12/31/2023 11:51:59 4.1 3.5-5.1 (m mol/L) Final Cl 12/31/2023 11:51:59 91 Below low normal 98- 107 (mmol/L) Final CO2 12/31/2023 11:51:59 27 22-32 (mmo l/L) Final Anion gap 12/31/2023 11:51:59 10 7-15 (mmol /L) Final Glucose 12/31/2023 11:51:59 122 Above high normal 70 -120 (mg/dL) Final Calcium 12/31/2023 11:51:59 10.1 8.4-10.2 ( mg/dL) Final Performing Location [facility] [place] [address]
--- OUTSIDE RECORDS SUMMARY | 2024-01-11 11:57 | External Medical Summary | Summary of Care ---
Author Name Unknown Organization [facility] Address [address] [place] [address] Phone [phone] Care Team Providers Care Measuring Clerk Name Role Phone Alisha Horn MD Primary Care Provider [phone] Reason for Visit * Reason Onset Date Comments Information 01/04/2024 Encounter Details Date Type Department Care Team (Late st Contact Info) Description 01/04/2024 Telephone Cardiology, [facility] [address] [place] [address] Ramesh Lyman, [address] [place] [address] Information Allergies Active Allergy Reactions Criticality Noted Date Comments Cristi Inhibitors Low 10/15/2004 cough documented as of this encounter (statuses as of 01/05/2024) Medications Medication Sig Dispensed Refills Start Date End Date Status ALBUTEROL 90 MCG/ACT IN AERSIndications:COPD with emphysema (HCC) 2 puffs every 4 hrs as needed 1 MDI 5 02/02/2007 Active PROTONIX 40 MG PO TBECIndications:Esophag eal reflux one q hs 30 5 02/02/2007 Active METFORMIN HCL ER (MOD) 500 MG PO [id number]:Preoper ative cardiovascular examination one daily Active PROCARDIA [...] metoprolol succinate XL (TOPROL XL) 25 MG [id number]:Palpita tions Take 1 Tab by mouth 2 [...] as of this encounter (statuses as of 01/05/2024) Active Problems Problem Noted Date Diagnosed Date [...] as of this encounter (statuses as of 01/05/2024) Resolved Problems Problem Noted Date Diagnosed Date Resolved Date PURE HYPERCHOLESTEROLEM 08/10/200503/19 Overview: Per Lipid Taxonomy. documented as of this encounter (statuses as of 01/05/2024) Social History Tobacco Use Types Packs/Day Years [...] encounter Miscellaneous Notes * Telephone Encounter - Luc Gould LPN - 01/05/2024 12:35 PM EDT Faxed to [employer] at . * Telephone Encounter - Ramesh [...] prior auth team note in encounter. Called [employer] to insure they had all pt information and testing results in an attempt to avoid peer to peer by initiating a reconsideration. [employer] did have all information, no grounds for reconsideration, peer to peer only. [employer] considers Nuc Stress equivocal d/t "small to moderate reversible inferolateral perfusion defect." Must be moderate or greater. To schedule peer to peer call [phone] option 1 * Telephone Encounter - Mahogany Bradshaw OSA - 01/04/2024 1:29 PM EDT Procedure for 01/11/2024 was denied by [facility] peer to peer can be done by calling opt 2 with case # [id number] documented in this encounter Plan of Treatment Upcoming Encounters Date Type Department Care Team (Late st Contact Info) Description 01/26/2024 7:15 AM EDT Cardiac Studies Cardiac Studies, [facility] 132 [facility] [place] [address] Scheduled Procedures Name Priority Associated Diagnoses Date/Ti me COLONOSCOPY FLEXIBLE PROXIMA L DIAGNOSTIC Recall Encounter for screening colonoscopy Health Maintenance Due Date Last Done Comments DISCUSS TOBACCO CESSATION (REFER TO SMARTSET #9458) 1963 Depression Monitoring 1975 HIV Screening 1978 [...] this encounter Medical Devices Implanted Type Area Sourcing Coordinator Device Identifier Shelf Expiration Date Model / Serial / Lot Desara One Single Incision Sling System Implanted:Qty: 1 on 02/20/2022 by Zane Gaines MD at OR [facility] N/A: Vagina [employer] 04/16/2023 [id number] / / [id number] documented as of this encounter Advance Directives [...] Power of Attor emmanuelle? No Care Teams Measuring Clerk Relationship Specialty Start Date End Date Alisha Horn MD [address] [place] [address] PCP - General Family Medicine 10/19/23 documented as of this encounter
--- OUTSIDE RECORDS SUMMARY | 2024-01-11 11:57 | External Medical Summary | Summary of Care ---
Author Name Unknown Organization [facility] Address [address] [place] [address] Phone [phone] Care Team Providers Care Compound Filler Name Role Phone Alisha Horn MD Primary Care Provider [phone] Reason for Visit * Reason Comments Outpatient Testing Encounter Details Date Type Department Care Team (Late st Contact Info) Description 12/31/2023 11:50 AM EDT Laboratory Laboratory, [facility] 132 [place] [id number] [facility] [address] [place] [address] Hyponatremia; Hyperkalemia Allergies Active Allergy Reactions Criticality Noted Date Comments Cristi Inhibitors Low 10/15/2004 cough documented as of this encounter (statuses as of 12/31/2023) Medications Medication Sig Dispensed Refills Start Date End Date Status ALBUTEROL 90 MCG/ACT IN AERSIndications:COPD with emphysema (HCC) 2 puffs every 4 hrs as needed 1 MDI 5 02/02/2007 Active PROTONIX 40 MG PO TBECIndications:Esophag eal reflux one q hs 30 5 02/02/2007 Active METFORMIN HCL ER (MOD) 500 MG PO [id number]:Preoper ative cardiovascular examination one daily Active PROCARDIA [...] metoprolol succinate XL (TOPROL XL) 25 MG SE74Kkiviulzwoj:Palpita tions Take 1 Tab by mouth 2 [...] Severe. 20 Tablet 12/29/2021 Active Losartan Potassium 50 MG Oral Tablet (Cozaar) Take 1 Tablet by mouth in the morning. 90 Tablet 3 12/21/2023 Active documented as of this encounter (statuses as of 12/31/2023) Active Problems Problem Noted Date Diagnosed Date [...] as of this encounter (statuses as of 12/31/2023) Resolved Problems Problem Noted Date Diagnosed Date Resolved Date PURE HYPERCHOLESTEROLEM 08/10/200503/19 Overview: Per Lipid Taxonomy. documented as of this encounter (statuses as of 12/31/2023) Social History Tobacco Use Types Packs/Day Years [...] on file documented as of this encounter Plan of Treatment Upcoming Encounters Date Type Department Care Team (Late st Contact Info) Description 01/26/2024 7:15 AM EDT Cardiac Studies Cardiac Studies, [facility] 132 [facility] [place] [address] Pending Results Name Type Priority Associated Diagnoses Date /Time BASIC METABOLIC PANEL Lab Routine Hyponatremia Hyperkalemia 12/31/2023 11:51 AM EDT Scheduled Procedures Name Priority Associated Diagnoses Date/Ti me COLONOSCOPY FLEXIBLE PROXIMA L DIAGNOSTIC Recall Encounter for screening colonoscopy Health Maintenance Due Date Last Done Comments DISCUSS TOBACCO CESSATION (REFER TO SMARTSET #3291) 1965 Depression Monitoring 1975 HIV Screening 1978 [...] Additional history exists Mammogram 07/28/2024 07/29/2023 GFR 12/27/2024 12/28/2023, 05/0 07/2017, 10/23/2016, Additional history exists Diabetes Screening 12/27/2026 12/28/2023, 1 , 02/20/2022, Additional history exists Colonoscopy 08/04/2027 08/03/2017, 08/03/2017 [...] this encounter Medical Devices Implanted Type Area Shopping Investigator Device Identifier Shelf Expiration Date Model / Serial / Lot Desara One Single Incision Sling System Implanted:Qty: 1 on 02/20/2022 by Zane Gaines MD at OR [facility] N/A: Sherrie Captimo 04/16/2023 [id number] / / [id number] documented as of this encounter Visit Diagnoses Diagnosis Hyponatremia Hyposmolality and/or hyponatremia Hyperkalemia Hyperpotassemia documented in [...] Power of Attor emmanuelle? No Care Teams Compound Filler Relationship Specialty Start Date End Date Alisha Horn MD [address] [place] [address] PCP - General Family Medicine 10/19/23 documented as of this encounter
--- OUTSIDE RECORDS SUMMARY | 2024-01-11 11:57 | External Medical Summary ---
Author Name Unknown Address Unknown Organization K0G[facility] [address] [place] [address] Laboratory Report Ordering Provider Test Date Status ASHISH KENT 01/04/2024 14:18:54 Final Observation Date Value Abnormality Reference (Units ) Status BUN 01/04/2024 14:18:54 11 6-20 (mg/dL) Final Creatinine 01/04/2024 14:18:54 0.8 0.5-1.0 (mg/dL) Final Glomerular filtration rate/1.73 sq M.predicted [Volume Rate/Area] in Serum, Plasma or Blood by Creatinine-based formula (CKD-EPI) 01/04/2024 14:18:54 81 >=60 (mL/min) Final eGFR is calculated based on the CKD-EPI 2020 equation. Sodium 01/04/2024 14:18:54 133 Below low normal 135 -146 (mmol/L) Final Potassium 01/04/2024 14:18:54 4.3 3.5-5.1 (m mol/L) Final Cl 01/04/2024 14:18:54 95 Below low normal 98- 107 (mmol/L) Final CO2 01/04/2024 14:18:54 28 22-32 (mmo l/L) Final Anion gap 01/04/2024 14:18:54 10 7-15 (mmol /L) Final Glucose 01/04/2024 14:18:54 131 Above high normal 70 -120 (mg/dL) Final Calcium 01/04/2024 14:18:54 9.7 8.4-10.2 ( mg/dL) Final Performing Location [facility] [address] [place] [address]
--- OUTSIDE RECORDS SUMMARY | 2024-01-11 11:57 | External Medical Summary | Summary of Care ---
Author Name Unknown Organization [facility] Address [address] [place] [address] Phone [phone] Care Team Providers Care Hot Press Operator Name Role Phone Alisha Horn MD Primary Care Provider [phone] Reason for Visit * Reason Onset Date Comments Information 01/04/2024 Encounter Details Date Type Department Care Team (Late st Contact Info) Description 01/04/2024 Telephone Cardiology, [facility] [address] [place] [address] Ramesh Lyman, [address] [place] [address] Information Allergies Active Allergy Reactions Criticality Noted [...] METFORMIN HCL ER (MOD) 500 MG PO [id number]:Preoper ative cardiovascular examination one daily Active PROCARDIA [...] metoprolol succinate XL (TOPROL XL) 25 MG [id number]:Palpita tions Take 1 Tab by mouth 2 [...] - 01/05/2024 12:35 PM EDT Faxed to [employer] at . * Telephone Encounter - Ramesh [...] greater. To schedule peer to peer call [phone] option 1 * Telephone Encounter - Mahogany Bradshaw OSA - 01/04/2024 1:29 PM EDT Procedure for 01/11/2024 was denied by [facility] peer to peer can be done by calling opt 2 with case # [id number] documented in this encounter Plan of Treatment Upcoming Encounters Date Type Department Care Team (Late st Contact Info) Description 01/26/2024 7:15 AM EDT Cardiac Studies Cardiac Studies, [facility] [address] [facility] [place] [address] Scheduled Procedures Name Priority Associated Diagnoses Date/Ti me COLONOSCOPY FLEXIBLE PROXIMA L DIAGNOSTIC Recall Encounter for screening colonoscopy Health Maintenance Due Date Last Done Comments DISCUSS TOBACCO CESSATION (REFER TO SMARTSET #5117) 1965 Depression Monitoring 1975 HIV Screening 1978 [...] this encounter Medical Devices Implanted Type Area Personal Counselor Device Identifier Shelf Expiration Date Model / Serial / Lot Desara One Single Incision Sling System Implanted:Qty: 1 on 02/20/2022 by Zane Gaines MD at OR [facility] N/A: Vagina [employer] 04/16/2023 [id number] / / [id number] documented as of this encounter Advance Directives [...] Power of Attor emmanuelle? No Care Teams Hot Press Operator Relationship Specialty Start Date End Date Alisha Horn MD [address] [place] [address] PCP - General Family Medicine 10/19/23 documented as of this encounter
--- OUTSIDE RECORDS SUMMARY | 2024-01-11 11:57 | External Medical Summary | Summary of Care ---
Author Name Unknown Organization [facility] Address [address] [place] [address] Phone [phone] Care Team Providers Care Case Managers Name Role Phone Alisha Horn MD Primary Care Provider [phone] Reason for Visit * Reason Comments Outpatient Testing Encounter Details Date Type Department Care Team (Late st Contact Info) Description 01/04/2024 2:40 PM EDT Laboratory Laboratory, [facility] [address] [facility] [place] [phone] [facility] [address] [facility] [place] [address] Pre-op testing; Hyponatremia Allergies Active Allergy Reactions Criticality Noted Date Comments Cristi Inhibitors Low 10/15/2004 cough documented as of this encounter (statuses as of 01/04/2024) Medications Medication Sig Dispensed Refills Start Date End Date Status ALBUTEROL 90 MCG/ACT IN AERSIndications:COPD with emphysema (HCC) 2 puffs every 4 hrs as needed 1 MDI 5 02/02/2007 Active PROTONIX 40 MG PO TBECIndications:Esophag eal reflux one q hs 30 5 02/02/2007 Active METFORMIN HCL ER (MOD) 500 MG PO [id number]:Preoper ative cardiovascular examination one daily Active PROCARDIA [...] metoprolol succinate XL (TOPROL XL) 25 MG TF91Cgsyqxzydlw:Palpita tions Take 1 Tab by mouth 2 [...] as of this encounter (statuses as of 01/04/2024) Active Problems Problem Noted Date Diagnosed Date [...] as of this encounter (statuses as of 01/04/2024) Resolved Problems Problem Noted Date Diagnosed Date Resolved Date PURE HYPERCHOLESTEROLEM 08/10/200503/19 Overview: Per Lipid Taxonomy. documented as of this encounter (statuses as of 01/04/2024) Social History Tobacco Use Types Packs/Day Years [...] 7:15 AM EDT Cardiac Studies Cardiac Studies, [facility] 132 [facility] [place] [address] Pending Results Name Type Priority Associated Diagnoses Date /Time BASIC METABOLIC PANEL Lab Routine Pre-op testing 01/04/2024 2:18 PM EDT PT INR Lab Routine Pre-op testing 01/04/2024 2:18 PM EDT APTT Lab Routine Pre-op testing 01/04/2024 2:18 PM EDT OSMOLALITY, SERUM Lab Routine Hyponatremia 01/04/2024 2:18 PM EDT Scheduled Procedures Name Priority Associated Diagnoses Date/Ti me COLONOSCOPY FLEXIBLE PROXIMA L DIAGNOSTIC Recall Encounter for screening colonoscopy Health Maintenance Due Date Last Done Comments DISCUSS TOBACCO CESSATION (REFER TO SMARTANAYA #8626) 1965 Depression Monitoring 1975 HIV Screening 1978 [...] Additional history exists Mammogram 07/28/2024 07/29/2023 GFR 12/30/2024 12/31/2023, 12/18, 08/20/2017, Additional history exists Diabetes Screening 12/30/2026 12/31/2023, 0 12/28/2023, 01/21/2023, Additional history exists Colonoscopy 08/04/2027 08/03/2017, 08/03/2017 [...] this encounter Medical Devices Implanted Type Area Family Reunification Specialist Device Identifier Shelf Expiration Date Model / Serial / Lot Desaudrey One Single Incision Sling System Implanted:Qty: 1 on 02/20/2022 by Zane Gaines MD at OR [facility] N/A: Vagina [employer] 04/16/2023 [id number] / / [id number] documented as of this encounter Procedures Procedure Name Priority Date/Time Associated Diagnosis Comments CBC Routine 01/04/2024 2:18 PM EDT Pre-op testing documented in this encounter Results * CBC (01/04/2024 2:18 PM EDT) WBC 8.11 4.00 - 10.80 K/uL 01/04/2024 2:34 PM EDT [facility] RBC 4.22 3.85 - 5.15 M/uL 01/04/2024 2:34 PM EDT [facility] HGB 13.0 12.0 - 15.3 g/dL 01/04/2024 2:34 PM EDT [facility] HCT 38.1 36.0 - 45.2 % 01/04/2024 2:34 PM EDT [facility] MCV 90.3 81.5 - 97.5 fL 01/04/2024 2:34 PM EDT [facility] MCH 30.8 27.0 - 34.0 pg 01/04/2024 2:34 PM EDT [facility] MCHC 34.1 32.0 - 36.0 g/dL 01/04/2024 2:34 PM EDT [facility] RDW 12.6 11.5 - 15.5 % 01/04/2024 2:34 PM EDT [facility] PLT 313 140 - 400 K/uL 01/04/2024 2:34 PM EDT [facility] MPV 8.5 6.6 - 11.1 fL 01/04/2024 2:34 PM EDT [facility] Blood Venous blood specimen / Unknown Venipuncture / Unknown 01/04/2024 2:18 PM EDT 01/04/2024 2:18 PM EDT Ramesh Lyman DO LAB BLOOD ORDERABLES [facility] [address] [place] [address] documented in this encounter Visit Diagnoses Diagnosis Pre-op testing Preoperative examination, unspecified Hyponatremia Hyposmolality and/or hyponatremia documented in this encounter Advance Directives * [...] Power of Attor emmanuelle? No Care Teams Case Managers Relationship Specialty Start Date End Date [facility] [address] PCP - General Family Medicine 10/19/23 documented as of this encounter
--- OUTSIDE RECORDS SUMMARY | 2024-01-11 11:57 | External Medical Summary | Summary of Care ---
Author Name Unknown Organization [facility] Address [address] [place] [address] Phone [phone] Care Team Providers Care Wire Charger Name Role Phone Alisha Horn MD Primary Care Provider [phone] Reason for Visit * Reason Comments Outpatient Testing Encounter Details Date Type Department Care Team (Late st Contact Info) Description 12/28/2023 9:50 AM EDT Laboratory Laboratory, [facility] 132 [place] [phone] [facility] [address] [place] [address] Dyspnea on exertion; HTN, goal below 140/90; Abnormal nuclear stress test Allergies Active Allergy Reactions Criticality Noted Date Comments Cristi Inhibitors Low 10/15/2004 cough documented as of this encounter (statuses as of 12/28/2023) Medications Medication Sig Dispensed Refills Start Date End Date Status ALBUTEROL 90 MCG/ACT IN AERSIndications:COPD with emphysema (HCC) 2 puffs every 4 hrs as needed 1 MDI 5 02/02/2007 Active PROTONIX 40 MG PO TBECIndications:Esophag eal reflux one q hs 30 5 02/02/2007 Active METFORMIN HCL ER (MOD) 500 MG PO [id number]:Preoper ative cardiovascular examination one daily Active PROCARDIA [...] metoprolol succinate XL (TOPROL XL) 25 MG YX42Sknzsgdnetx:Palpita tions Take 1 Tab by mouth 2 [...] as of this encounter (statuses as of 12/28/2023) Active Problems Problem Noted Date Diagnosed Date [...] as of this encounter (statuses as of 12/28/2023) Resolved Problems Problem Noted Date Diagnosed Date Resolved Date PURE HYPERCHOLESTEROLEM 08/10/200503/19 Overview: Per Lipid Taxonomy. documented as of this encounter (statuses as of 12/28/2023) Social History Tobacco Use Types Packs/Day Years [...] 7:15 AM EDT Cardiac Studies Cardiac Studies, [facility] [address] [place] [address] 02/22/2024 9:30 AM EST Office Visit Cardiology, [facility] [address] [place] [address] Suzanne Mckeon PA-C [address] [place] [address] Pending Results Name Type Priority Associated Diagnoses Date /Time CBC Lab Routine Dyspnea on exertion HTN, goal below 140/90 12/28/2023 9:27 AM EDT COMPREHENSIVE METABOLIC PANEL Lab Routine Dyspnea on exertion Abnormal nuclear stress test HTN, goal below 140/90 12/28/2023 9:27 AM EDT Scheduled Procedures Name Priority Associated Diagnoses Date/Ti me COLONOSCOPY FLEXIBLE PROXIMA L DIAGNOSTIC Recall Encounter for screening colonoscopy Health Maintenance Due Date Last Done Comments DISCUSS TOBACCO CESSATION (REFER TO SMARTSET #6408) 1965 Depression Monitoring 1975 HIV Screening 1978 Alpha-1 Antitrypsin 1981 Hepatitis C Screening 1981 O2 ASSESSMENT COMPLETED IN PAST YEAR FOR COPD 1981 DTap/Tdap Vaccines (1 - Tdap) 1982 Cologuard 2008 Fecal Occult Blood Test 2008 Sigmoidoscopy 2008 Lung Cancer Screening 2013 Zoster Vaccines (1 of 2) 2013 *COPD SEVERITY VERIFIED BY PFT 2014 GFR 08/20/2018 08/20/2017, 07/0 10/2016, 05/15/2015, Additional history exists Albumin/Creatinine Ratio 08/20/2020 08/20/2017 *SPIROMETRY ONCE FOR ASTHMA-ADULT 03/12/2022 Lipid Panel 08/20/2022 08/20/2017, 04/20, 08/17/2013, Additional history exists COVID-19 Vaccine ( season) 2023 06/12/2020, 05/22/2020 Influenza Vaccine (FLU shot) (#1) 2023 01/21/2023, 01/21/2023, 02/02/2022, Additional history exists Mammogram 07/28/2024 07/29/2023 Diabetes Screening 01/21/2026 01/21/2023, 1 04/22/2021, 08/20/2017, Additional history exists Colonoscopy 08/04/2027 08/03/2017, 08/03/2017 [...] this encounter Medical Devices Implanted Type Area Packaging Line Operator Device Identifier Shelf Expiration Date Model / Serial / Lot Desara One Single Incision Sling System Implanted:Qty: 1 on 02/20/2022 by Zane Gaines MD at OR [facility] N/A: Vagina [employer] 04/16/2023 [id number] / / [id number] documented as of this encounter Visit Diagnoses Diagnosis Dyspnea on exertion Other dyspnea and respiratory abnormality HTN, goal below 140/90 Unspecified essential hypertension Abnormal nuclear stress test Other nonspecific abnormal cardiovascular system function study documented in this encounter Advance Directives * [...] Power of Attor emmanuelle? No Care Teams Wire Charger Relationship Specialty Start Date End Date Alisha Horn MD [address] [place] [address] PCP - General Family Medicine 10/19/23 documented as of this encounter
--- OUTSIDE RECORDS SUMMARY | 2024-01-11 11:57 | External Medical Summary | Summary of Care ---
Author Name Unknown Organization [facility] Address [address] [place] [address] Phone [phone] Care Team Providers Care Tile Erector Name Role Phone Alisha Horn MD Primary Care Provider [phone] Encounter Details Date Type Department Care Team (Late st Contact Info) Description 12/28/2023 9:35 AM EDT Imaging Radiology [address] [address] Dyspnea on exertion; Abnormal nuclear stress test Allergies Active Allergy [...] METFORMIN HCL ER (MOD) 500 MG PO [id number]:Preoper ative cardiovascular examination one daily Active PROCARDIA [...] metoprolol succinate XL (TOPROL XL) 25 MG [id number]:Palpita tions Take 1 Tab by mouth 2 [...] for Pain, Severe. 20 Tablet 12/29/2021 Active documented as of this encounter (statuses [...] as of this encounter Miscellaneous Notes * Result Encounter Note - Ramesh Lyman DO - 12/31/2023 5:41 PM EDT Stable pre catheterization chest x-ray results. Ramesh Lyman DO documented in this encounter Plan of Treatment Upcoming Encounters Date Type Department Care Team (Late st Contact Info) Description 01/26/2024 7:15 AM EDT Cardiac Studies Cardiac Studies, [facility] [address] [facility] [place] [id number] Scheduled Procedures Name Priority Associated Diagnoses Date/Ti me COLONOSCOPY FLEXIBLE PROXIMA L DIAGNOSTIC Recall Encounter for screening colonoscopy Health Maintenance Due Date Last Done Comments DISCUSS TOBACCO CESSATION (REFER TO SMARTSET #3190) 1963 Depression Monitoring 1975 HIV Screening 1978 [...] this encounter Medical Devices Implanted Type Area Chiropractic Doctor Device Identifier Shelf Expiration Date Model / Serial / Lot Desara One Single Incision Sling System Implanted:Qty: 1 on 02/20/2022 by Zane Gaines MD at OR [facility] N/A: Vagina [employer] 04/16/2023 [id number] / / [id number] documented as of this encounter Procedures Procedure Name Priority Date/Time Associated Diagnosis Comments XR CHEST 2 VIEWS Routine 12/28/2023 9:42 AM EDT Dyspnea on exertion Abnormal nuclear stress test documented in this encounter Results * XR CHEST 2 VIEWS (12/28/2023 9:42 AM EDT) Anatomical Region Laterality Modality Chest Digital Radiogra phy 12/28/2023 9:50 AM EDT Impressions 12/28/2023 10:04 AM EDT IMPRESSION No active cardiopulmonary disease seen. I have personally reviewed this examination and agree with the resident/fellow physician's interpretation. Narrative 12/28/2023 10:04 AM EDT EXAM XR CHEST 2 VIEWS - 12/28/2023 9:42 am HISTORY MOCTEZUMA, pre cardiac cath TECHNIQUE Frontal and lateral radiographs of the chest were obtained. COMPARISON None FINDINGS FOREIGN BODIES, SUPPORT TUBES, LINES, DEVICES: None. LUNGS, PLEURA: No consolidation. No pneumothorax or effusion. CARDIOVASCULAR, MEDIASTINUM: The cardiomediastinal silhouette is within normal limits. OTHER: Degenerative changes of the spine. Procedure Note Xin Encarnacion MD - 12/28/2023 EXAM XR CHEST 2 VIEWS - 12/28/2023 9:42 am HISTORY MOCTEZUMA, pre cardiac cath TECHNIQUE Frontal and lateral radiographs of the chest were obtained. COMPARISON None FINDINGS FOREIGN BODIES, SUPPORT TUBES, LINES, DEVICES: None. LUNGS, PLEURA: No consolidation. No pneumothorax or effusion. CARDIOVASCULAR, MEDIASTINUM: The cardiomediastinal silhouette is withinnormal limits. OTHER: Degenerative changes of the spine. IMPRESSION IMPRESSION No active cardiopulmonary disease seen. I have personally reviewed this examination and agree with the resident/fellow physician's interpretation. Ramesh Lyman DO RADIOLOGY (RAD GENER AL) documented in this encounter Visit Diagnoses Diagnosis Dyspnea on exertion Other dyspnea and respiratory abnormality Abnormal nuclear stress test Other nonspecific abnormal [...] Power of Attor emmanuelle? No Care Teams Tile Erector Relationship Specialty Start Date End Date Alisha Horn MD [address] [place] [address] PCP - General Family Medicine 10/19/23 documented as of this encounter
--- OUTSIDE RECORDS SUMMARY | 2024-01-11 11:57 | External Medical Summary | Summary of Care ---
Author Name Unknown Organization [facility] Address [address] [place] [address] Phone [phone] Care Team Providers Care Executive Assistant Name Role Phone Alisha Horn MD Primary Care Provider [phone] Reason for Referral * Precert (Within 10 days (routine)) - Authorized Specialty Diagnoses / Procedures Referred By Contac t Referred To Contact Radiology Diagnoses Dyspnea on exertion Coronary artery calcification seen on CAT scan Procedures NM MYOCARD PERF IMG SPECT MULT STUDIES WITH PHARM INTERV Ramesh Lyman DO [address] [place] [address] Referral ID Status Reason Start Date Expiration Date V isits Requested Visits Authorized [id number] Authorized Precert 12/10/2023 06/07/2024 999 999 Reason for Visit * Reason Onset Date Comments Test Results 12/09/2023 Encounter Details Date Type Department Care Team (Late st Contact Info) Description 12/09/2023 Telephone Cardiology, [facility] [address] [place] [address] Ramesh Lyman DO [address] [place] [address] Test Results Allergies Active Allergy Reactions Criticality Noted Date [...] METFORMIN HCL ER (MOD) 500 MG PO [id number]:Preoper ative cardiovascular examination one daily Active PROCARDIA [...] metoprolol succinate XL (TOPROL XL) 25 MG [id number]:Palpita tions Take 1 Tab by mouth 2 [...] encounter Miscellaneous Notes * Telephone Encounter - Mkie Turner OSA - 12/09/2023 1:14 PM EDT Sent encounter to schedulers to call patient to setup the NM testing. Stated in TE to complete TOAN. Thank you. * Telephone Encounter - Ramesh Lyman DO - 12/09/2023 1:08 PM EDT Scheduling: Please help schedule Lexiscan nuclear stress test, please counseled patient to abstain from caffeine for 12 to 24 hours before the test. Ramesh Lyman DO * Telephone Encounter - Ramesh Lyman DO - 12/09/2023 1:04 PM EDT I called patient and reviewed the results of her recent Zio patch with her. The predominant rhythm was sinus rhythm with average heart rate of 76 beats per minute. Four relatively brief episodes of SVT were observed. The longest SVT episode was 11 beats in duration. Fifteen patient triggered events were submitted for interpretation. The events correlated with normal sinus rhythm, sinus rhythm with premature atrial contractions, sinus rhythm with premature ventricular contractions, and 2 of the episodes correlated with the brief episodes of supraventricular tachycardia with runs of 5 beats in duration 11 beats in duration respectively. I called patient we discussed options such as increasing her metoprolol dose. Her chief complaint at present as dyspnea on exertion which I interpreted as being a separate complaint compared to or palpitations. Her heart rate appears to be relatively well-controlled on her current dose of metoprolol. She had a recent low-dose CT of the lungs performed at [facility] for lung cancer screening given her history of smoking and she was noted to have severe atherosclerotic calcification of the coronary arteries as well as diffuse centrilobular emphysema and stable pulmonary nodules. A left-sided pharyngeal diverticulum was noted. Plan: Continue current dose of metoprolol. Continue plans for resting echocardiogram Proceed with Lexiscan nuclear stress test. Patient does not feel that she would be able to adequately exercise, and a dobutamine stress test is not ideal for her given her history of SVT. Ramesh Lyman DO documented in this encounter Plan of Treatment Upcoming Encounters Date Type Department Care Team (Late st Contact Info) Description 01/26/2024 7:15 AM EDT Cardiac Studies Cardiac Studies, [facility] [address] [place] [address] Scheduled Procedures Name Priority Associated Diagnoses Date/Ti me COLONOSCOPY FLEXIBLE PROXIMA L DIAGNOSTIC Recall Encounter for screening colonoscopy Health Maintenance Due Date Last Done Comments DISCUSS TOBACCO CESSATION (REFER TO SMARTSET #9324) 1965 Depression Monitoring 1975 HIV Screening 1978 [...] this encounter Medical Devices Implanted Type Area Customer Counter Associate Device Identifier Shelf Expiration Date Model / Serial / Lot Desara One Single Incision Sling System Implanted:Qty: 1 on 02/20/2022 by Zane Gaines MD at OR [facility] N/A: Vagina [employer] 04/16/2023 [id number] / / [id number] documented as of this encounter Results * NM MYOCARD PERF IMG SPECT MULT STUDIES WITH PHARM INTERV (12/21/2023 12:48 PM EDT) Narrative Scheduling, Silent - 12/21/2023 12:49 PM EDT Results can be viewed in the patient's cardiology tab of Chart Review for this date of service. Ramesh WISE NUCLE[employer] MED documented in this encounter Visit Diagnoses Diagnosis Dyspnea on exertion- Primary Other dyspnea and respiratory abnormality Coronary artery calcification seen on CAT scan Coronary atherosclerosis of unspecified type of vessel, [place] or graft Dyspnea on exertion- Primary Other dyspnea and respiratory abnormality Coronary artery calcification seen on CAT scan Coronary atherosclerosis of unspecified type of vessel, [place] river or graft documented in this encounter Advance Directives * [...] Power of Attor emmanuelle? No Care Teams Executive Assistant Relationship Specialty Start Date End Date Alisha Horn MD [address] [place] [address] PCP - General Family Medicine 10/19/23 documented as of this encounter
--- OUTSIDE RECORDS SUMMARY | 2024-01-11 11:57 | External Medical Summary | Summary of Care ---
Author Name Unknown Organization [facility] Address [address] [place] [address] Phone [phone] Care Team Providers Care Filament Cutter Name Role Phone Alisha Horn MD Primary Care Provider [phone] Reason for Visit * Reason Onset Date Comments Abnormal Test Results 12/31/2023 Encounter Details Date Type Department Care Team (Late st Contact Info) Description 12/31/2023 Telephone Cardiology, [facility] [address] [place] [address] Ramesh Lyman, [address] [facility] [place] [address] Abnormal Test Results Allergies Active Allergy Reactions Criticality [...] METFORMIN HCL ER (MOD) 500 MG PO [id number]:Preo perative cardiovascular examination one daily Active PROCARDIA XL 60 MG PO TB24 one daily Active DOCUSATE SODIUM 100 MG PO CAPS as needed Active FUROSEMIDE 40 MG PO TABS One Half tablet as needed 30 Tab 5 12/28/2012 Active CLARITIN 10 MG PO CAPS once daily Active SPIRIVA HANDIHALER 18 MCG IN CAPS once daily Active metoprolol succinate XL (TOPROL XL) 25 MG [id number]:Palp itations Take 1 Tab by mouth 2 [...] as soon as possible, ideally today at [facility] so we get the answer back today. BMP order entered. Ramesh Lyman DO documented in this encounter Plan of Treatment Upcoming Encounters Date Type Department Care Team (Late st Contact Info) Description 01/26/2024 7:15 AM EDT Cardiac Studies Cardiac Studies, [facility] [address] [place] [address] Scheduled Orders Name Type Priority Associated Diagnoses Orde r Schedule BASIC METABOLIC PANEL Lab Routine Hyponatremia Expected: 01/03/2024, Expires: 12/30/2024 SODIUM, RANDOM URINE Lab Routine Hyponatremia Expected: 01/03/2024, Expires: 02/17/2024 OSMOLALITY, URINE Lab Routine Hyponatremia Expected: 01/03/2024, Expires: 02/17/2024 OSMOLALITY, SERUM Lab Routine Hyponatremia Expected: 01/03/2024, Expires: 02/17/2024 Scheduled Procedures Name Priority Associated Diagnoses Date/Ti me COLONOSCOPY FLEXIBLE PROXIMA L DIAGNOSTIC Recall Encounter for screening colonoscopy Health Maintenance Due Date Last Done Comments DISCUSS TOBACCO CESSATION (REFER TO SMARTSET #6031) 1965 Depression Monitoring 1975 HIV Screening 1978 [...] this encounter Medical Devices Implanted Type Area Finishing Frame Runner Device Identifier Shelf Expiration Date Model / Serial / Lot Desara One Single Incision Sling System Implanted:Qty: 1 on 02/20/2022 by Zane Gaines MD at OR [facility] N/A: Vagina [employer] 04/16/2023 [id number] / / [id number] documented as of this encounter Results * (ABNORMAL) BASIC METABOLIC PANEL (12/31/2023 11:51 AM EDT) BUN 10 6 - 20 mg/dL 12/31/2023 2:35 PM EDT [facility] [facility] Creatinine 0.7 0.5 - 1.0 mg/dL 12/31/2023 2:35 PM EDT [facility] Estimated Glomerular Filtration Rate >90 >=60 mL/min 12/31/2023 2:35 PM EDT [facility] Comment:eGFR is calculated b ased on the CKD-EPI 2020 equation. Sodium 128(L) 135 - 146 mmol/L 12/31/2023 2:35 PM EDT [facility] Potassium 4.1 3.5 - 5.1 mmol/L 12/31/2023 2:35 PM EDT [facility] Chloride 91(L) 98 - 107 mmol/L 12/31/2023 2:35 PM EDT [facility] CO2 27 22 - 32 mmol/L 12/31/2023 2:35 PM EDT [facility] Anion Gap 10 7 - 15 mmol/L 12/31/2023 2:35 PM EDT [facility] Glucose 122(H) 70 - 120 mg/dL 12/31/2023 2:35 PM EDT [facility] Calcium 10.1 8.4 - 10.2 mg/dL 12/31/2023 2:35 PM EDT [facility] Blood Venous blood specimen / Unknown Venipuncture / Unknown 12/31/2023 11:51 AM EDT 12/31/2023 11:52 AM EDT Ramesh Lyman DO LAB BLOOD ORDERABLES [facility] [place] [facility] [place] [address] documented in this encounter Visit Diagnoses Diagnosis [...] Power of Attor emmanuelle? No Care Teams Filament Cutter Relationship Specialty Start Date End Date Alisha Horn MD [address] [place] [address] [place] [address] PCP - General Family Medicine 10/19/23 documented as of this encounter
--- OUTSIDE RECORDS SUMMARY | 2024-01-11 11:57 | External Medical Summary | Summary of Care ---
Author Name Unknown Organization [facility] Address [address] [place] [address] Phone [phone] Care Team Providers Care Manager Of Exhibitions And Collections Name Role Phone Alisha Horn MD Primary Care Provider [phone] Reason for Visit * Reason Comments Outpatient Testing Encounter Details Date Type Department Care Team (Late st Contact Info) Description 12/28/2023 9:50 AM EDT Laboratory Laboratory, [facility] [address] [facility] [id number] [facility] [address] [facility] [place] [address] Dyspnea on exertion; HTN, goal below 140/90; [...] METFORMIN HCL ER (MOD) 500 MG PO [id number]:Preoper ative cardiovascular examination one daily Active PROCARDIA [...] metoprolol succinate XL (TOPROL XL) 25 MG SU41Nvysjnmvdid:Palpita tions Take 1 Tab by mouth 2 [...] 7:15 AM EDT Cardiac Studies Cardiac Studies, [facility] [address] [place] [address] 02/22/2024 9:30 AM EST Office Visit Cardiology, [facility] [address] [place] [address] Suzanne Mckeon PA-C [address] [place] [address] Pending Results Name Type Priority Associated Diagnoses [...] Comments DISCUSS TOBACCO CESSATION (REFER TO SMARTSET #4799) 1965 Depression Monitoring 1975 HIV Screening 1978 [...] this encounter Medical Devices Implanted Type Area Hammer Shop Supervisor Device Identifier Shelf Expiration Date Model / Serial / Lot Desara One Single Incision Sling System Implanted:Qty: 1 on 02/20/2022 by Zane Gaines MD at OR [facility] N/A: Vagina [employer] 04/16/2023 [id number] / / [id number] documented as of this encounter Visit Diagnoses [...] Power of Attor emmanuelle? No Care Teams Manager Of Exhibitions And Collections Relationship Specialty Start Date End Date Alisha Horn MD [address] [place] [address] PCP - General Family Medicine 10/19/23 documented as of this encounter
--- OUTSIDE RECORDS SUMMARY | 2024-01-11 11:57 | External Medical Summary ---
Author Name Unknown Address Unknown Organization [facility] [address] [place] [address] Laboratory Report Ordering Provider Test Date Status ASHISH KENT 01/04/2024 14:18:54 Final Anticoagulation may affect t esting. Refer to [employer] Test Catalog for a list of effects. Observation Date Value Abnormality Reference (Units ) Status aPTT panel - Platelet poor plasma 01/04/2024 14:18:54 25 21-38 (seconds) Final Performing Location [facility] - [address] [place] [address]
--- OUTSIDE RECORDS SUMMARY | 2024-01-11 11:57 | External Medical Summary ---
Author Name Unknown Address Unknown Organization [facility] [facility] [address] [place] [address] Laboratory Report Ordering Provider Test Date Status ASHISH KENT 01/04/2024 14:18:54 Final Warfarin Therapy
INR: 2 .0-3.0 conventional anticoagulation
INR: 2.5- 3.5 high intensity anticoagulation Observation Date Value Abnormality Reference (Units ) Status PT 01/04/2024 14:18:54 12.1 11.6-15.2 (seconds) Final INR 01/04/2024 14:18:54 0.9 0.8-1.2 Final Performing Location [facility] [place] [address]
--- OUTSIDE RECORDS SUMMARY | 2024-01-11 11:57 | External Medical Summary | Summary of Care ---
Author Name Unknown Organization [facility] Address [address] [place] [address] Phone [phone] Care Team Providers Care Rubber Flap Tuber Machine Operator Name Role Phone Alisha Horn MD Primary Care Provider [phone] Reason for Visit * Reason Onset Date Comments Abnormal Test Results 12/21/2023 Encounter Details Date Type Department Care Team (Late st Contact Info) Description 12/21/2023 Telephone Cardiology, [facility] [address] [place] [address] Yoli Hinojosa, [address] [facility] [place] [address] Abnormal Test Results Allergies Active Allergy Reactions Criticality Noted Date Comments Cristi Inhibitors Low 10/15/2004 cough documented as of this encounter (statuses as of 12/31/2023) Medications Medication Sig Dispensed Refills Start Date End Date Status ALBUTEROL 90 MCG/ACT IN AERSIndications:PLASTIC SEWER D with emphysema (HCC) 2 puffs every 4 hrs as needed 1 MDI 5 02/02/2007 Active PROTONIX 40 MG PO TBECIndications:Eso phageal reflux one q hs 30 5 02/02/2007 Active METFORMIN HCL ER (MOD) 500 MG PO [id number]:Pre operative cardiovascular examination one daily Active PROCARDIA XL 60 MG PO TB24 one daily Active DOCUSATE SODIUM 100 MG PO CAPS as needed Active FUROSEMIDE 40 MG PO TABS One Half tablet as needed 30 Tab 5 12/28/2012 Active CLARITIN 10 MG PO CAPS once daily Active SPIRIVA HANDIHALER 18 MCG IN CAPS once daily Active metoprolol succinate XL (TOPROL XL) 25 MG [id number]:Pal pitations Take 1 Tab by mouth 2 times [...] times a day as needed. 08/09/2021 Active HYDROcodone-Acetami nophen 5-325 MG Oral Tablet Take by mouth 1 Tablet every 6 hours as needed for Pain, Severe. 20 Tablet 12/29/2021 Active losartan (COZAAR) 25 MG Tablet Take 1 Tablet by mouth in the morning. 12/21/19 24 Discontinued(Med ication/Dose Changed) hydrochlorothiazide (HYDRODIURIL) 12.5 MG Capsule Take 12.5 mg by mouth daily. 12/27/19 24 Discontinued Losartan Potassium 50 MG Oral Tablet (Cozaar) Take 1 Tablet by mouth in the morning. 90 Tablet 3 12/21/2023 12/31/19 24 Discontinued(Pat ient preference/disco ntinuation) documented as of this encounter (statuses as [...] as of this encounter Miscellaneous Notes * Addendum Note - Yoli Hinojosa DO - 12/31/2023 5:11 PM EDTAddended by: YOLI HINOJOSA on: 12/31/2023 05:11 PM Modules accepted: Orders * Addendum Note - Baljeet Navarrete LPN - 12/27/2023 12:39 PM EDTAddended by: BALJEET NAVARRETE on: 12/27/2023 12:39 PM Modules accepted: Orders * Telephone Encounter - Baljeet Navarrete LPN - 12/27/2023 12:26 PM EDT Spoke with patient by phone, gave information in this encounter. Verbalized understanding Agreed to plan of care. Pt is taking losartan 75mg daily, increased by PCP approx 4-5 months ago. PCP d/c HCTZ Med list up dated. Cardiac Cath 01/11/24 8:00am with Zachariah Romero DO. Orders pended, pt will have labs, CXR and strip picker cath instructions this week. Instructions also sent [employer] message. * Telephone Encounter - Baljeet Navarrete LPN - 12/27/2023 12:05 PM EDT HCTZ 12.5mg d/c * Telephone Encounter - Baljeet Navarrete LPN - 12/21/2023 2:45 PM EDT I left a message on patient's answering machine asking patient to call us back regarding the information in this encounter. * Addendum Note - Yoli Hinojosa DO - 12/21/2023 2:39 PM EDTAddended by: YOLI HINOJOSA on: 12/21/2023 02:39 PM Modules accepted: Orders * Telephone Encounter - Yoli Hinojosa DO - 12/21/2023 2:29 PM EDT Cardiology nursing: Please call patient and reviewed the following with her. Hypertension was noted when she arrived for her nuclear stress test today and persisted throughout the study. Her prescription are provided by a non [facility] primary care provider. Please review her medications with her, she should be taking metoprolol succinate 25 milligrams twice daily, HCT 12.5 milligrams daily, losartan 25 milligrams daily, Procardia 60 milligrams daily, furosemide 40 milligrams 1/2 tablet as needed for swelling Please confirm with her that she was taking these medications, we may need to callpharmacy to confirm medications. If in fact she was taking medications as prescribed, recommend increasing losartan from 25 milligrams daily to 50 milligrams. --her nuclear stress test was abnormal. This may be related to the elevated blood pressure but she certainly has risk for underlying coronary heart disease. Recent noncontrast CT of the chest performed in follow-up of lung cancer screening at [place] reveals severe diffuse coronary calcification. --would recommend proceeding with diagnostic cardiac catheterization perhaps in [address] Romero is back at [place]. --In meantime need to optimize her BP . --as noted increase losartan to 50 milligrams daily --have patient come in next week for lab work for reassessment of her kidneys panel, we can obtain her pre cath blood work and chest x-ray at that time as well and provide catheterization lab teaching and a nursing blood pressure check. I will enter the labs. Sent Rx for losartan to [facility], please confirm that is where pt would like rx to go Yoli Hinojosa DO documented in this encounter Plan of Treatment Upcoming Encounters Date Type Department Care Team (Late st Contact Info) Description 01/26/2024 7:15 AM EDT Cardiac Studies Cardiac Studies, [facility] [address] [facility] [place] [address] Scheduled Orders Name Type Priority Associated Diagnoses Orde r Schedule PT INR Lab Routine Dyspnea on exertion Abnormal nuclear stress test HTN, goal below 140/90 Expected: 12/22/2023, Expires: 12/20/2024 APTT Lab Routine Dyspnea on exertion Abnormal nuclear stress test HTN, goal below 140/90 Expected: 12/22/2023, Expires: 12/20/2024 CARDIAC CATH-CARDIOLOGY ONLY Procedures Routine Dyspnea on exertion Abnormal nuclear stress test HTN, goal below 140/90 Ordered: 12/21/2023 BASIC METABOLIC PANEL Lab Routine Pre-op testing Expected: 01/01/2024, Expires: 12/26/2024 PT INR Lab Routine Pre-op testing Expected: 01/01/2024, Expires: 12/26/2024 APTT Lab Routine Pre-op testing Expected: 01/01/2024, Expires: 12/26/2024 CBC Lab Routine Pre-op testing Expected: 01/01/2024, Expires: 12/26/2024 XR CHEST 2 VIEWS Medical Imaging Routine Pre-op testing Expected: 01/01/2024 (Approximate), Expires: 01/25/2025 CORONARY ANGIOGRAPHY W/LEFT HEART CATH Card Cath Routine Dyspnea on exertion Abnormal nuclear stress test Ordered: 12/31/2023 Scheduled Procedures Name Priority Associated Diagnoses Date/Ti me COLONOSCOPY FLEXIBLE PROXIMA L DIAGNOSTIC Recall Encounter for screening colonoscopy Health Maintenance Due Date Last Done Comments DISCUSS TOBACCO CESSATION (REFER TO SMARTSET #3205) 1963 Depression Monitoring 1975 HIV Screening 1978 [...] this encounter Medical Devices Implanted Type Area Septic Tank Cleaner Device Identifier Shelf Expiration Date Model / Serial / Lot Desara One Single Incision Sling System Implanted:Qty: 1 on 02/20/2022 by Zane Gaines MD at OR [facility] N/A: Vagina DREW [employer] 04/16/2023 [id number] / / [id number] documented as of this encounter Results * XR CHEST 2 [...] and agree with the resident/fellow physician's interpretation. Yoli Hinojosa DO RADIOLOGY (RAD GENER AL) * (ABNORMAL) COMPREHENSIVE METABOLIC PANEL (12/28/2023 9:27 AM EDT) BUN 6 6 - 20 mg/dL 12/28/2023 10:57 AM EDT [facility] Creatinine 0.7 0.5 - 1.0 mg/dL 12/28/2023 10:57 AM EDT [facility] Estimated Glomerular Filtration Rate >90 >=60 mL/min 12/28/2023 10:57 AM EDT [facility] Comment:eGFR is calculated b ased on the CKD-EPI 2020 equation. Sodium 127(L) 135 - 146 mmol/L 12/28/2023 10:57 AM EDT [facility] Potassium 5.4(H) 3.5 - 5.1 mmol/L 12/28/2023 10:57 AM EDT [facility] Chloride 91(L) 98 - 107 mmol/L 12/28/2023 10:57 AM EDT [facility] CO2 22 22 - 32 mmol/L 12/28/2023 10:57 AM EDT [facility] Anion Gap 14 7 - 15 mmol/L 12/28/2023 10:57 AM EDT [facility] Glucose 105 70 - 120 mg/dL 12/28/2023 10:57 AM EDT [facility] Albumin 4.4 3.8 - 5.0 g/dL 12/28/2023 10:57 AM EDT [facility] 57-10 AST 17 10 - 35 U/L 12/28/2023 10:57 AM EDT [facility] Comment:Results may be false ly elevated due to hemolysis. Alkaline Phosphatase 121 35 - 130 U/L 12/28/2023 10:57 AM EDT [facility] 57-10 Bilirubin, Total 0.5 <=1.2 mg/dL 12/28/2023 10:57 AM EDT [facility] 57-10 Calcium 10.4(H) 8.4 - 10.2 mg/dL 12/28/2023 10:57 AM EDT [facility] 57-10 Protein 7.1 6.0 - 8.3 g/dL 12/28/2023 10:57 AM EDT [facility]10 ALT 12 10 - 35 U/L 12/28/2023 10:57 AM EDT [facility]10 Blood Venous blood specimen / Unknown Venipuncture / Unknown 12/28/2023 9:27 AM EDT 12/28/2023 9:27 AM EDT Yoli Hinojosa DO LAB BLOOD ORDERABLES [facility] [address] [place] [id number] * CBC (12/28/2023 9:27 AM EDT) WBC 10.16 4.00 - 10.80 K/uL 12/28/2023 10:10 AM EDT [facility] RBC 4.82 3.85 - 5.15 M/uL 12/28/2023 10:10 AM EDT [facility] HGB 14.7 12.0 - 15.3 g/dL 12/28/2023 10:10 AM EDT [facility] HCT 43.3 36.0 - 45.2 % 12/28/2023 10:10 AM EDT [facility] 57[facility]10 MCV 89.8 81.5 - 97.5 fL 12/28/2023 10:10 AM EDT [facility]10 MCH 30.5 27.0 - 34.0 pg 12/28/2023 10:10 AM EDT [facility] MCHC 33.9 32.0 - 36.0 g/dL 12/28/2023 10:10 AM EDT [facility]10 RDW 12.7 11.5 - 15.5 % 12/28/2023 10:10 AM EDT [facility]10 PLT 338 140 - 400 K/uL 12/28/2023 10:10 AM EDT [facility]10 MPV 9.2 6.6 - 11.1 fL 12/28/2023 10:10 AM EDT [facility] Blood Venous blood specimen / Unknown Venipuncture / Unknown 12/28/2023 9:27 AM EDT 12/28/2023 9:27 AM EDT Yoli Hinojosa DO LAB BLOOD ORDERABLES [facility] [facility] [place] [address] documented in this encounter Visit Diagnoses Diagnosis Dyspnea on exertion- Primary Other dyspnea and respiratory abnormality Abnormal nuclear stress test Other nonspecific abnormal cardiovascular system function study HTN, goal below 140/90 Unspecified essential hypertension Pre-op testing Preoperative examination, unspecified Dyspnea on exertion Other dyspnea and respiratory [...] Power of Attor emmanuelle? No Care Teams Rubber Flap Tuber Machine Operator Relationship Specialty Start Date End Date Alisha Horn [facility] [address] [facility] [address] PCP - General Family Medicine 10/19/23 documented as of this encounter
--- OUTSIDE RECORDS SUMMARY | 2024-01-11 11:58 | External Medical Summary | Summary of Care ---
Author Name Unknown Organization [facility] Address [address] [place] [address] Phone [phone] Care Team Providers Care Prison Guard Supervisor Name Role Phone Alisha Horn MD Primary Care Provider [phone] Reason for Visit * Reason Onset Date Comments Abnormal Test Results 12/21/2023 Encounter Details Date Type Department Care Team (Late st Contact Info) Description 12/21/2023 Telephone Cardiology, [facility] [address] [place] [address] Yoli Hinojosa, [address] [facility] [place] [address] Abnormal Test Results Allergies Active Allergy Reactions Criticality Noted Date Comments Cristi Inhibitors Low 10/15/2004 cough documented as of this encounter (statuses as of 12/27/2023) Medications Medication Sig Dispensed Refills Start Date End Date Status ALBUTEROL 90 MCG/ACT IN AERSIndications:KITCHEN LEAD D with emphysema (HCC) 2 puffs every 4 hrs as needed 1 MDI 5 02/02/2007 Active PROTONIX 40 MG PO TBECIndications:Eso phageal reflux one q hs 30 5 02/02/2007 Active METFORMIN HCL ER (MOD) 500 MG PO [id number]:Pre operative cardiovascular examination one daily Active PROCARDIA XL 60 MG PO TB24 one daily Active DOCUSATE SODIUM 100 MG PO CAPS as needed Active FUROSEMIDE 40 MG PO TABS One Half tablet as needed 30 Tab 5 12/28/2012 Active CLARITIN 10 MG PO CAPS once daily Active SPIRIVA HANDIHALER 18 MCG IN CAPS once daily Active metoprolol succinate XL (TOPROL XL) 25 MG [id number]:Pal pitations Take 1 Tab by mouth 2 [...] the morning. 90 Tablet 3 12/21/2023 Active losartan (COZAAR) 25 MG Tablet Take 1 Tablet by mouth in the morning. 12/21/19 24 Discontinued(Med ication/Dose Changed) hydrochlorothiazide (HYDRODIURIL) 12.5 MG Capsule Take 12.5 mg by mouth daily. 12/27/19 24 Discontinued documented as of this encounter (statuses as of 12/27/2023) Active Problems Problem Noted Date Diagnosed Date [...] as of this encounter (statuses as of 12/27/2023) Resolved Problems Problem Noted Date Diagnosed Date Resolved Date PURE HYPERCHOLESTEROLEM 08/10/200503/19 Overview: Per Lipid Taxonomy. documented as of this encounter (statuses as of 12/27/2023) Social History Tobacco Use Types Packs/Day Years [...] encounter Miscellaneous Notes * Addendum Note - Baljeet Navarrete LPN [...] Her prescription are provided by a non [facility] primary care provider. Please review her medications [...] in follow-up of lung cancer screening at [place] reveals severe diffuse coronary calcification. --would recommend proceeding with diagnostic cardiac catheterization perhaps in [address] Romero is back at [place]. --In meantime need to optimize her BP [...] the labs. Sent Rx for losartan to [facility], please confirm that is where pt would like rx to go Yoli Hinojosa DO documented in this encounter Plan of Treatment Upcoming Encounters Date Type Department Care Team (Late st Contact Info) Description 01/26/2024 7:15 AM EDT Cardiac Studies Cardiac Studies, [facility] [address] [place] [address] 02/22/2024 9:30 AM EST Office Visit Cardiology, [facility] [address] [place] [address] Suzanne Mckeon PA-C [address] [place] [address] Scheduled Orders Name Type Priority Associated Diagnoses Orde r Schedule CBC Lab Routine Dyspnea on exertion HTN, goal below 140/90 Expected: 12/22/2023, Expires: 12/20/2024 COMPREHENSIVE METABOLIC PANEL Lab Routine Dyspnea on exertion Abnormal nuclear stress test HTN, goal below 140/90 Expected: 12/22/2023, Expires: 12/20/2024 PT INR Lab Routine Dyspnea on exertion Abnormal nuclear stress test HTN, goal below 140/90 Expected: 12/22/2023, Expires: 12/20/2024 APTT Lab Routine Dyspnea on exertion Abnormal nuclear stress test HTN, goal below 140/90 Expected: 12/22/2023, Expires: 12/20/2024 XR CHEST 2 VIEWS Medical Imaging Routine Dyspnea on exertion Abnormal nuclear stress test Expected: 12/22/2023, Expires: 01/19/2025 CARDIAC CATH-CARDIOLOGY ONLY Procedures Routine Dyspnea on exertion Abnormal nuclear stress test HTN, goal below 140/90 Ordered: 12/21/2023 Scheduled Procedures Name Priority Associated Diagnoses Date/Ti me COLONOSCOPY FLEXIBLE PROXIMA L DIAGNOSTIC Recall Encounter for screening colonoscopy Health Maintenance Due Date Last Done Comments DISCUSS TOBACCO CESSATION (REFER TO SMARTSET #8225) 1963 Depression Monitoring 1975 HIV Screening 1978 Alpha-1 Antitrypsin 1981 Hepatitis C Screening 1981 O2 ASSESSMENT COMPLETED IN PAST YEAR FOR COPD 1981 DTap/Tdap Vaccines (1 - Tdap) 1982 Cologuard 2008 Fecal Occult Blood Test 2008 Sigmoidoscopy 2008 Lung Cancer Screening 2013 Zoster Vaccines (1 of 2) 2013 *COPD SEVERITY VERIFIED BY PFT 2014 GFR 08/20/2018 08/20/2017, 10/2016, 05/15/2015, Additional history exists Albumin/Creatinine Ratio [...] this encounter Medical Devices Implanted Type Area Food Products Sales Representative Device Identifier Shelf Expiration Date Model / Serial / Lot Mee One Single Incision Sling System Implanted:Qty: 1 on 02/20/2022 by Zane Gaines MD at OR [facility] N/A: Vagina [employer] 04/16/2023 [id number] / / [id number] documented as of this encounter Visit Diagnoses Diagnosis Dyspnea on exertion- Primary Other dyspnea and respiratory abnormality Abnormal nuclear stress test Other nonspecific abnormal cardiovascular system function study HTN, goal below 140/90 Unspecified essential hypertension Pre-op testing Preoperative examination, unspecified documented in this encounter Advance Directives * [...] Power of Attor emmanuelle? No Care Teams Prison Guard Supervisor Relationship Specialty Start Date End Date Alisha Horn MD [address] [place] [address] [place] [address] PCP - General Family Medicine 10/19/23 documented as of this encounter
--- OUTSIDE RECORDS SUMMARY | 2024-01-11 11:58 | External Medical Summary | Summary of Care ---
Author Name Unknown Organization [facility] Address [address] [place] [address] Phone [phone] Care Team Providers Care Professor Of Management Name Role Phone Alisha Horn MD Primary Care Provider [phone] Reason for Visit * Reason Onset Date Comments Abnormal Test Results 12/21/2023 Encounter Details Date Type Department Care Team (Late st Contact Info) Description 12/21/2023 Telephone Cardiology, [facility] [address] [place] [address] Yoli Hinojosa, [address] [facility] [place] [address] Abnormal Test Results Allergies Active Allergy Reactions Criticality Noted Date Comments Cristi Inhibitors Low 10/15/2004 cough documented as of this encounter (statuses as of 12/21/2023) Medications Medication Sig Dispensed Refills Start Date End Date Status ALBUTEROL 90 MCG/ACT IN AERSIndications:COPD with emphysema (HCC) 2 puffs every 4 hrs as needed 1 MDI 5 02/02/2007 Active PROTONIX 40 MG PO TBECIndications:Esop hageal reflux one q hs 30 5 02/02/2007 Active METFORMIN HCL ER (MOD) 500 MG PO [id number]:Preo perative cardiovascular examination one daily Active PROCARDIA XL 60 MG PO TB24 one daily Active DOCUSATE SODIUM 100 MG PO CAPS as needed Active FUROSEMIDE 40 MG PO TABS One Half tablet as needed 30 Tab 5 12/28/2012 Active CLARITIN 10 MG PO CAPS once daily Active SPIRIVA HANDIHALER 18 MCG IN CAPS once daily Active hydrochlorothiazide (HYDRODIURIL) 12.5 MG Capsule Take 12.5 mg by mouth daily. Active metoprolol succinate XL (TOPROL XL) 25 MG [id number]:Palp itations Take 1 Tab by mouth 2 [...] 1 Tablet by mouth in the morning. 12/21/2023 Discontinue d(Medicatio n/Dose Changed) documented as of this encounter (statuses as of 12/21/2023) Active Problems Problem Noted Date Diagnosed Date [...] as of this encounter (statuses as of 12/21/2023) Resolved Problems Problem Noted Date Diagnosed Date Resolved Date PURE HYPERCHOLESTEROLEM 08/10/200503/19 Overview: Per Lipid Taxonomy. documented as of this encounter (statuses as of 12/21/2023) Social History Tobacco Use Types Packs/Day Years [...] encounter Miscellaneous Notes * Telephone Encounter - Jess Navarrete LPN - 12/21/2023 2:45 PM EDT [...] Her prescription are provided by a non [facility] primary care provider. Please review her medications [...] in follow-up of lung cancer screening at [place] reveals severe diffuse coronary calcification. --would recommend proceeding with diagnostic cardiac catheterization perhaps in [address] Romero is back at [place]. --In meantime need to optimize her BP [...] the labs. Sent Rx for losartan to [facility] [place], please confirm that is where pt would like rx to go Yoli Hinojosa DO documented in this encounter Plan of Treatment Upcoming Encounters Date Type Department Care Team (Late st Contact Info) Description 01/26/2024 7:15 AM EDT Cardiac Studies Cardiac Studies, [facility] [address] [place] [address] 02/22/2024 9:30 AM EST Office Visit Cardiology, [facility] [address] [place] [address] Suzanne Mckeon PA-C [address] [place] [address] Scheduled Orders Name Type Priority Associated Diagnoses [...] Comments DISCUSS TOBACCO CESSATION (REFER TO SMARTSET #1036) 1963 Depression Monitoring 1975 HIV Screening 1978 [...] this encounter Medical Devices Implanted Type Area Vocational Placement Specialist Device Identifier Shelf Expiration Date Model / Serial / Lot Desara One Single Incision Sling System Implanted:Qty: 1 on 02/20/2022 by Zane Gaines MD at OR [facility] N/A: Vagina [employer] 04/16/2023 [id number] / / [id number] documented as of this encounter Visit Diagnoses Diagnosis Dyspnea on exertion- Primary Other dyspnea and respiratory abnormality Abnormal nuclear stress test Other nonspecific abnormal cardiovascular system function study HTN, goal below 140/90 Unspecified essential hypertension documented in this encounter Advance Directives * [...] Power of Attor emmanuelle? No Care Teams Professor Of Management Relationship Specialty Start Date End Date Alisha Horn MD [address] [place] [id number] PCP - General Family Medicine 10/19/23 documented as of this encounter
--- OUTSIDE RECORDS SUMMARY | 2024-01-11 11:58 | External Medical Summary | Summary of Care ---
Author Name Unknown Organization [facility] Address [address] [place] [address] Phone [phone] Care Team Providers Care Oyster Culturist Name Role Phone Alisha Horn MD Primary Care Provider [phone] Reason for Visit * Reason Onset Date Comments Abnormal Test Results 12/21/2023 Encounter Details Date Type Department Care Team (Late st Contact Info) Description 12/21/2023 Telephone Cardiology, [facility] [address] [place] [address] Yoli Hinojosa, [address] [place] [address] Abnormal Test Results Allergies Active Allergy Reactions Criticality Noted Date Comments Cristi Inhibitors Low 10/15/2004 cough documented as of this encounter (statuses as of 12/27/2023) Medications Medication Sig Dispensed Refills Start Date End Date Status ALBUTEROL 90 MCG/ACT IN AERSIndications: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) 2 puffs every 4 hrs as needed 1 MDI 5 02/02/2007 Active PROTONIX 40 MG PO TBECIndications:Eso phageal reflux one q hs 30 5 02/02/2007 Active METFORMIN HCL ER (MOD) 500 MG PO [id number]:Pre operative cardiovascular examination one daily Active PROCARDIA XL 60 MG PO TB24 one daily Active DOCUSATE SODIUM 100 MG PO CAPS as needed Active FUROSEMIDE 40 MG PO TABS One Half tablet as needed 30 Tab 5 12/28/2012 Active CLARITIN 10 MG PO CAPS once daily Active SPIRIVA HANDIHALER 18 MCG IN CAPS once daily Active metoprolol succinate XL (TOPROL XL) 25 MG [id number]:Pal pitations Take 1 Tab by mouth 2 [...] pended, pt will have labs, CXR and pick and shovel man cath instructions this week. Instructions also sent Oxynade message. * Telephone Encounter - Baljeet Navarrete [...] Her prescription are provided by a non [facility] primary care provider. Please review her [...] in follow-up of lung cancer screening at [place] reveals severe diffuse coronary calcification. --would recommend proceeding with diagnostic cardiac catheterization perhaps in [address] Romero is back at [place]. --In meantime need to optimize her BP [...] the labs. Sent Rx for losartan to [facility], please confirm that is where pt would like rx to go Yoli Hinojosa DO documented in this encounter Plan of Treatment Upcoming Encounters Date Type Department Care Team (Late st Contact Info) Description 01/26/2024 7:15 AM EDT Cardiac Studies Cardiac Studies, [facility] [address] [address] 02/22/2024 9:30 AM EST Office Visit Cardiology, [facility] [address] [address] Suzanne Mckeon PA-C [address] [address] Scheduled Orders Name Type Priority Associated Diagnoses [...] Comments DISCUSS TOBACCO CESSATION (REFER TO SMARTSET #4038) 1963 Depression Monitoring 1975 HIV Screening 1978 [...] 04/20, 08/17/2013, Additional history exists COVID-19 Vaccine (3 - 2022- season) 2023 06/12/2020, 05/22/2020 Influenza Vaccine (FLU [...] this encounter Medical Devices Implanted Type Area Wire Stripping Machine Operator Device Identifier Shelf Expiration Date Model / Serial / Lot Desara One Single Incision Sling System Implanted:Qty: 1 on 02/20/2022 by Zane Gaines MD at OR [facility] N/A: [employer] 04/16/2023 [id number] / / [id number] documented as of this encounter Visit Diagnoses [...] Power of Attor emmanuelle? No Care Teams Oyster Culturist Relationship Specialty Start Date End Date Alisha Horn MD [address] [place] [address], [place] [address] PCP - General Family Medicine 10/19/23 documented as of this encounter
--- OUTSIDE RECORDS SUMMARY | 2024-01-11 11:58 | External Medical Summary | Summary of Care ---
Author Name Unknown Organization [facility] Address [address] [place] [address] Phone [phone] Care Team Providers Care Replenishment Buyer Name Role Phone Alisha Horn MD Primary Care Provider [phone] Reason for Referral * Precert (Within 10 days (routine)) - Authorized Specialty Diagnoses / Procedures Referred By Contac t Referred To Contact Cardiac Studies Diagnoses Palpitations Dyspnea on exertion Procedures ECHO, COMPLETE (2D), TRANS-THORACIC Ramesh Lyman DO [address] [place] [address] Referral ID Status Reason Start Date Expiration Date V isits Requested Visits Authorized [id number] Authorized Precert 11/16/[phone] Reason for Visit * Reason Comments NEW PATIENT Seen in 2018 * Evaluate & Treat - Unlimited Visits (Within 10 days (routine)) - Authorized Specialty Diagnoses / Procedures Referred By Contac t Referred To Contact Cardiovascular Medicine / Cardiology Diagnoses Essential (primary) hypertension Alisha Horn MD [address] [place] [id number] Referral ID Status Reason Start Date Expiration Date Visits Requested Visits Authorized [id number] Authorized Specialty Services Required 10/19/[phone] Encounter Details Date Type Department Care Team (Late st Contact Info) Description 11/16/2023 2:00 PM EDT Office Visit Cardiology, [facility] [address] [place] [address] Ramesh Lyman DO [address] [place] [address] Palpitations*; HTN, goal below 140/90; SVT (supraventricular tachycardia) (HCC); Dyspnea on exertion Allergies Active Allergy Reactions Criticality Noted Date Comments Cristi Inhibitors Low 10/15/2004 cough documented as of this encounter (statuses as of 11/16/2023) Medications Medication Sig Dispensed Refills Start Date End Date Status ALBUTEROL 90 MCG/ACT IN AERSIndications:COPD with emphysema (HCC) 2 puffs every 4 hrs as needed 1 MDI 5 02/02/2007 Active PROTONIX 40 MG PO TBECIndications:Esop hageal reflux one q hs 30 5 02/02/2007 Active METFORMIN HCL ER (MOD) 500 MG PO [id number]:Preo perative cardiovascular examination one daily Active PROCARDIA XL 60 MG PO TB24 one daily Active DOCUSATE SODIUM 100 MG PO CAPS as needed Active FUROSEMIDE 40 MG PO TABS One Half tablet as needed 30 Tab 5 12/28/2012 Active CLARITIN 10 MG PO CAPS once daily Active SPIRIVA HANDIHALER 18 MCG IN CAPS once daily Active losartan (COZAAR) 25 MG Tablet Take 1 Tablet by mouth in the morning. Active hydrochlorothiazide (HYDRODIURIL) 12.5 MG Capsule Take 12.5 mg by mouth daily. Active metoprolol succinate XL (TOPROL XL) 25 MG [id number]:Palp itations Take 1 Tab by mouth 2 [...] for Pain, Severe. 20 Tablet 12/29/2021 Active HYDROCODONE-ACETAMIN OPHEN 5-325 MG PO TABS 1 tab every 4-6 hours as needed 4 Discontinue d(Patient preference/ discontinua tion) diazePAM 5 MG Oral Tablet (Valium) Insert one tablet vaginally at bedtime 30 Tablet 12/10/2021 4 Discontinue d(Patient preference/ discontinua tion) documented as of this encounter (statuses as of 11/16/2023) Active Problems Problem Noted Date Diagnosed Date [...] as of this encounter (statuses as of 11/16/2023) Resolved Problems Problem Noted Date Diagnosed Date Resolved Date PURE HYPERCHOLESTEROLEM 08/10/200503/19 Overview: Per Lipid Taxonomy. documented as of this encounter (statuses as of 11/16/2023) Social History Tobacco Use Types Packs/Day Years [...] on file documented as of this encounter Last Filed Vital Signs Vital Sign Reading Time Taken Comments Blood Pressure 168/82 11/16/2023 2:13 PM EDT Pulse 72 11/16/2023 2:13 PM EDT Temperature - - Respiratory Rate 18 11/16/2023 2:13 PM EDT Oxygen Saturation - - Inhaled Oxygen Concentration - - Weight 76.4 kg (168 lb 6.4 oz) 11/16/2023 2:13 P M EDT Height - - Body Mass Index 29.84 02/20/2022 7:57 AM EDT documented in this encounter Progress Notes * Ramesh Lyman, - 11/16/2023 2:24 PM EDT Cardiology New Patient [facility] 11/16/2023 Reason for Consultation: shortness of breath with exertion, sensation of heart racing Provider Requesting Consultation: PCP: ALISHA HORN [address] [place] [address] [phone] History of Present Illness: Janelle Pizano is a 58 year old year old female seen in cardiology consultation for evaluation of symptoms of shortness of breath with exertion and heart rate racing. The patient had previously been seen by cardiology practice, most recent visit in 2017 with RebeccaRoan PAC. She carries a chart history of supraventricular tachycardia based on her past clinical symptoms, but per review of her chart prolonged SVT episodes have not been captured on previous attempts at Holter monitor. The patient states that recently she has difficulty with shortness of breath for the last 3 to 4 months. Her symptoms mostly occur in the morning when she first wakes up and attempts to do minimal walking activity. She sleeps on 6 pillows at baseline and this has not changed. She denies any chest discomfort. She feels like her heart rate is racing when she has the shortness of breath episodes. She had undergone a CT of the lungs for lung cancer screening performed at [place] yesterday with results as noted below. She was a longstanding history of cigarette smoking, previously smoking least 1 pack per day, currently she was down to 6 cigarettes per day. She had recently tried Chantix but had to discontinue dueto side effects during sleep. She has a family history of long QT syndrome per her description, details unknown, as outlined below. Review of Systems: All systems reviewed & are unremarkable except as noted in HPI & below Past Medical History: Patient Active Problem List Diagnosis ADVANCE DIRECTIVE INFORMATION HTN, goal below 140/90 Asthma with severity to be determined Major depressive disorder Anxiety state Esophageal reflux Anterior cruciate ligament tear Dyslipidemia, goal LDL below 100 Tobacco use disorder Abnormal EKG COPD, severity to be determined (HCC) SVT (supraventricular tachycardia) (HCC) Plantar fascia syndrome Past Surgical History: Procedure Laterality Date COLONOSCOPY, DIAGNOSTIC (RECTUM) 08/03/2017 normal, repeat 10 yrs/COLONOSCOPY FLEXIBLE PROXIMAL DIAGNOSTIC performed by Jesu Vega MD at ENDOSCOPY [facility] INFORMATION ventral hernia ?? LAPAROSCOPY; CHOLECYSTECTOMY 03/17/2012 03/17/2012 laparoscopic cholecystectomy - [facility] Dr. Joan Greenberg PARTIAL HYSTERECTOMY 1990 REMOVAL OF OVARY(S) Bilateral REPAIR BLADDER DEFECT N/A 02/20/2022 VAGINAL SLING PROCEDURE FOR STRESS INCONTINENCE performed by Zane Gaines MD at [facility] REPAIR OF KNEE CARTILAGE 01/12/2007 left knee REPAIR OF VAGINA N/A 02/20/2022 COMBINED ANTEROPOSTERIOR COLPORRHAPHY, CYSTO performed by Zane Gaines MD at [facility] REPAIR OF VAGINAL PROLAPSE N/A 02/20/2022 COLPOPEXY VAGINAL EXTRA PERITONEAL APPROACH performed by Zane Gaines MD at [facility] LLOYD/BSO,OMENTECTOMY FOR MALIGNANCY Family History: Family History Problem Relation Name Age of Onset Heart Disorder Mother IA 50's Cancer Father unknown Heart Disorder Sister Long QT syndrome Heart Disorder Brother IA/stents 50's Heart Disorder Other (Niece) Long QT syndrome Breast Cancer No significant family history Reported symptom of long QT syndrome in 2 sisters and a brother as well as he says in nephews. Details unknown to the patient with regards to any family history of sudden cardiac . Social History: Social History Socioeconomic History Marital status: Tobacco Use Smoking status: Every Day Current packs/day: 0.75 Average packs/day: 0.8 packs/day for 30.0 years (22.5 ttl pk-yrs) Types: Cigarettes Smokeless tobacco: Never Substance and Sexual Activity Alcohol use: No Drug use: No Sexual activity: Not Currently Partners: Male Allergies: Cristi inhibitors Medications: Current Outpatient Medications Medication Sig Dispense Refill ALBUTEROL 90 MCG/ACT IN AERS 2 puffs every 4 hrs as needed 1 MDI 5 PROTONIX 40 MG PO TBEC one q hs 30 5 METFORMIN HCL ER (MOD) 500 MG PO TB24 one daily PROCARDIA XL 60 MG PO TB24 one daily FUROSEMIDE 40 MG PO TABS One Half tablet as needed 30 Tab 5 CLARITIN 10 MG PO CAPS once daily losartan (COZAAR) 25 MG Tablet Take 1 Tablet by mouth in the morning. metoprolol succinate XL (TOPROL XL) 25 MG TB24 Take 1 Tab by mouth 2 times a day. 60 Tab 5 simvastatin (ZOCOR) 80 MG Tablet Take 1 Tablet by mouth at bedtime. 5 DULERA 200-5 MCG/ACT Inhaler Inhale 2 Puffs by mouth in the morning and 2 Puffs before bedtime. 3 Armodafinil 50 MG Oral Tablet take 4 tablets by mouth daily Baclofen 20 MG Oral Tablet Take 1 Tablet by mouth 3 times a day as needed. HYDROcodone-Acetaminophen 5-325 MG Oral Tablet Take by mouth 1 Tablet every 6 hours as needed for Pain, Severe. 20 Tablet 0 DOCUSATE SODIUM 100 MG PO CAPS as needed (Patient not taking: No sig reported) SPIRIVA HANDIHALER 18 MCG IN CAPS once daily (Patient not taking: No sig reported) hydrochlorothiazide (HYDRODIURIL) 12.5 MG Capsule Take 12.5 mg by mouth daily. (Patient not taking:Reported on 12/10/2021) busPIRone HCl 10 MG Oral Tablet (Buspar) Take by mouth 20 mg in the morning AND 20 mg before bedtime. (Patient not taking: Reported on 12/10/2021) No current facility-administered medications for this visit. OBJECTIVE/PHYSICAL EXAMINATION: BP 168/82 | Pulse 72 | Resp 18 | Wt 76.4 kg (168 lb 6.4 oz) | BMI 29.84 kg/m | BSA 1.84 m General: no acute distress and stated age Eyes: conjunctiva are pink and non-injected, sclera clear Neck: normal jugular venous pulse, no hepatojugular reflux Chest: normal shape and normal respiratory effort Lungs: clear to auscultation and percussion Cardiac Exam: - regular heart sounds, no murmurs, rubs, or gallops Abdomen: abdomen soft, non-tender, no abnormal masses and no hepatosplenomegaly Musculoskeletal: no gait disturbance, no weakness Extremities: no edema and no cyanosis Neuro: grossly normal exam Psych: appropriate affect and insight. Data: EKG performed today 11/16/2023 reveals sinus rhythm at 74 beats per minute, nonspecific ST changes Echocardiogram reviewed, dated 10/08/16 at [facility]: -- Conclusions -- The left ventricle is normal in size. There is mild concentric left ventricular hypertrophy. The basal septum is thickened and angulated consistent with sigmoid septum. The left ventricular wall motion is normal. Left ventricular systolic function is normal. Ejection Fraction = 60-65%. Grade I diastolic dysfunction, (abnormal relaxation pattern). Radiology report of low-dose lung CT performed at [facility] on 11/15/23 Lungs and pleura: Diffuse centrilobular emphysema is seen most prominent in the upper lobes. 2 mm nodule in the right upper lobe (series 4 image 73) and a 2 mm nodule in the left lower lobe (image 127) are unchanged. Heart and pericardium: Heart size is normal. No pericardial effusion. Vessels: Severe atherosclerotic changes in the aorta and coronary arteries. Mediastinum and adrián: Subcentimeter lymph nodes are seen. Chest wall and lower neck: A left sided pharyngeal diverticulum is noted. Abdomen: Patient is status post cholecystectomy. Bones: Degenerative changes in the thoracic spine. IMPRESSION: Emphysema and tiny pulmonary nodules as above. Overall Lung RADS Category: 2 - Benign appearance or behavior - Nodules with a very low likelihood of becoming a clinically active cancer due to size or lack of growth. Continue annual screening. IMPRESSION: 58 year old year old female ICD-10-CM 1. Palpitations R00.2 2. HTN, goal below 140/90 I10 3. SVT (supraventricular tachycardia) (HCC) I47.10 4. Dyspnea on exertion R06.09 RECOMMENDATIONS/PLAN: Proceed with a 7 day Zio patch for evaluation of arrhythmias as well as resting echocardiogram for evaluation of shortness of breath with exertion. The patient has taken metoprolol succinate on a chronic basis and has not missed this medication. Future considerations include ongoing assessment and treatment for hypertension which appears to besuboptimally controlled. Based on the CT findings, coronary atherosclerosis present. Patient was on simvastatin 80 milligrams daily, results of most recent lipid panel are not available. Depending upon the results of the Zio patch and resting echocardiogram, further consideration of evaluation for ischemic heart disease to be considered, perhaps with a low intensity exercise/Lexiscannuclear stress test. Disposition: Follow Up: Return in about 3 months (around 02/16/2024) for Clinic Visit. | For: Clinic Visit | Check-out note: Zio today Schedule echo Follow up with [facility] or Dr Lyman in 2-3 m Ramesh Lyman DO Cardiology, [address] [address] This chart was completed in part utilizing [employer] Speech Voice Recognition Software. Grammatical errors, random word insertions, prounoun errors, and incomplete sentences are an occasional consequence of this system due to software limitations, ambient noise, and hardware issues. Any formal questions or concerns about the content, text, or information contained within the body of this dictation should be directly addressed to the provider for clarification. documented in this encounter Procedure Notes * Zachariah Romero DO - 11/16/2023 2:22 PM EDTAssociated Order(s): EKG REASON FOR STUDY: Baseline;Baseline CONCLUSIONS: Normal sinus rhythm Nonspecific ST abnormality Abnormal ECG When compared with ECG of 20-Feb-2022 08:27, Vent. rate has increased by 25 bpm Ventricular Rate: 74 Atrial Rate: 74 DC Interval: 118 QRS Duration: 84 QT/QTc: 364/404 ms P-R-T Gobles: 64 : 50 : 45 degrees documented in this encounter Nursing Notes * Day Ruby CMA - 11/16/2023 2:07 PM EDT Chief Complaint Patient presents with NEW PATIENT Seen in 2018 Examination Room: 10 Name: Janelle Pizano Date of : (1965). Reason for Visit: New patient - SOB Interim Hospitalization(s): Denies Problems/Concerns: SOB on exertion and rest, diagnosed with SVT prior in 2018 with Suzanne. Chest Pain/SOB: Notices SOB most in the morning upon waking. [facility] Discussed: Yes [facility] is a way you can talk to your provider online through e-mail. Would you like to sign up? I can activate it for you? ALREADY ACTIVE Patient was instructed to not get up on the exam table until directed and assisted by their provider; patient is to remain seated in the chair/ wheelchair/ exam table for fall prevention and safety reasons. Patient is aware to have assistance to step down off exam table with personnel. Patient voiced full comprehension of instructions. documented in this encounter Plan of Treatment Upcoming Encounters Date Type Department Care Team (Late st Contact Info) Description 01/26/2024 7:15 AM EDT Cardiac Studies Cardiac Studies, [facility] [address] [place] [address] 02/22/2024 9:30 AM EST Office Visit Cardiology, [facility] [address] [place] [address] Suznane Mckeon PA-C [address] [place] [address] Scheduled Orders Name Type Priority Associated Diagnoses Orde r Schedule EXTERNAL EKG 2 TO 7 DAYS Holter Routine SVT (supraventricular tachycardia) (HCC) Palpitations Dyspnea on exertion Expected: 11/17/2023 (Approximate), Expires: 11/15/2024 ECHO, COMPLETE (2D), TRANS-THORACIC Echocardiology Routine Palpitations Dyspnea on exertion Expected: 11/16/2023 (Approximate), Expires: 11/15/2024 Scheduled Procedures Name Priority Associated Diagnoses Date/Ti me COLONOSCOPY FLEXIBLE PROXIMA L DIAGNOSTIC Recall Encounter for screening colonoscopy Health Maintenance Due Date Last Done Comments DISCUSS TOBACCO CESSATION (REFER TO SMARTSET #6251) 1965 Depression Monitoring 1975 HIV Screening 1978 Alpha-1 Antitrypsin 1981 Hepatitis C Screening 1981 O2 ASSESSMENT COMPLETED IN PAST YEAR FOR COPD 1981 DTaP,Tdap,and Td Vaccines (1 - Tdap) 1982 Cologuard 2008 Fecal Occult Blood Test 2008 Sigmoidoscopy 2008 Lung Cancer Screening 2013 Zoster Vaccines (1 of 2) 2013 *COPD SEVERITY VERIFIED BY PFT 2014 GFR 08/20/2018 08/20/2017, 0710/2016, 05/15/2015, Additional history exists Albumin/Creatinine Ratio 08/20/2020 08/20/2017 *SPIROMETRY ONCE FOR ASTHMA-ADULT 03/12/2022 Lipid Panel 08/20/2022 08/20/2017, 04/20, 08/17/2013, Additional history exists COVID-19 Vaccine ( season) 2022 06/12/2020, 05/22/2020 *CXR OR CT FOR COPD EVER 10/31/2023 Influenza Vaccine (FLU shot) (#1) 2023 01/21/2023, [...] this encounter Medical Devices Implanted Type Area Core Oven Tender Device Identifier Shelf Expiration Date Model / Serial / Lot Desara One Single Incision Sling System Implanted:Qty: 1 on 02/20/2022 by Zane Gaines MD at OR [facility] N/A: [employer] 04/16/2023 [id number] / / [id number] documented as of this encounter Procedures Procedure Name Priority Date/Time Associated Diagnosis Comments DC ECG ROUTINE ECG W/LEAST 12 LDS W/I&R Routine 11/16/2023 2:22 PM EDT HTN, goal below 140/90 SVT (supraventricular tachycardia) (HCC) documented in this encounter Results * EKG (11/16/2023 2:22 PM EDT) 11/16/2023 2:22 PM EDT Narrative Procedure Note Zachariah Romero DO - 11/16/2023 2:22 PM EDT REASON FOR STUDY: Baseline;Baseline CONCLUSIONS: Normal sinus rhythm Nonspecific ST abnormality Abnormal ECG When compared with ECG of 20-Feb-2022 08:27, Vent. rate has increased by 25 bpm Ventricular Rate: 74 Atrial Rate: 74 DC Interval: 118 QRS Duration: 84 QT/QTc: 364/404 ms P-R-T Gobles: 64 : 50 : 45 degrees Ramesh Lyman DO EKG [facility] CARDIOLOGY documented in this encounter Visit Diagnoses Diagnosis Palpitations- Primary HTN, goal below 140/90 Unspecified essential hypertension SVT (supraventricular tachycardia) (HCC) Other specified cardiac dysrhythmias Dyspnea on exertion Other dyspnea and respiratory abnormality documented in this encounter Advance Directives * [...] Power of Attor emmanuelle? No Care Teams Replenishment Buyer Relationship Specialty Start Date End Date Alisha Horn MD [address] [place] [address] [place] [id number] PCP - General Family Medicine 10/19/23 documented as of this encounter"
--- OUTSIDE RECORDS SUMMARY | 2024-01-11 11:58 | External Medical Summary | Summary of Care ---
Author Name Unknown Organization [facility] Address [address] [place] [address] Phone [phone] Care Team Providers Care Power Brake Rebuilder Name Role Phone Alisha Horn MD Primary Care Provider [phone] Reason for Visit * Reason Onset Date Comments Abnormal Test Results 12/21/2023 Encounter Details Date Type Department Care Team (Late st Contact Info) Description 12/21/2023 Telephone Cardiology, [facility] [address] [place] [address] Yoli Hinojosa, [address] [place] [address] Abnormal Test Results Allergies Active Allergy Reactions [...] METFORMIN HCL ER (MOD) 500 MG PO [id number]:Preo perative cardiovascular examination one daily Active PROCARDIA [...] metoprolol succinate XL (TOPROL XL) 25 MG CK23Sqfzsojcwwi:Palp itations Take 1 Tab by mouth 2 [...] Her prescription are provided by a non [facility] primary care provider. Please review her [...] in follow-up of lung cancer screening at [place] reveals severe diffuse coronary calcification. --would recommend proceeding with diagnostic cardiac catheterization perhaps in [address] Romero is back at [place]. --In meantime need to optimize her BP [...] the labs. Sent Rx for losartan to [facility] [place], please confirm that is where pt would like rx to go Yoli Hinojosa DO documented in this encounter Plan of Treatment Upcoming Encounters Date Type Department Care Team (Late st Contact Info) Description 01/26/2024 7:15 AM EDT Cardiac Studies Cardiac Studies, [facility] [address] [place] [address] 02/22/2024 9:30 AM EST Office Visit Cardiology, [facility] [address] [place] [address] Suzanne Mckeon PA-C [address] [place] [address] Scheduled Orders Name Type Priority Associated Diagnoses [...] Comments DISCUSS TOBACCO CESSATION (REFER TO SMARTSET #8466) 1963 Depression Monitoring 1975 HIV Screening 1978 [...] encounter Medical Devices Implanted Type Area Core Stripper Device Identifier Shelf Expiration Date Model / Serial / Lot Desara One Single Incision Sling System Implanted:Qty: 1 on 02/20/2022 by Zane Gaines MD at OR [facility] N/A: Vagina [employer] 04/16/2023 [id number] / / [id number] documented as of this encounter Visit Diagnoses [...] Power of Attor emmanuelle? No Care Teams Power Brake Rebuilder Relationship Specialty Start Date End Date Alisha Horn MD [address] [place] [address] PCP - General Family Medicine 10/19/23 documented as of this encounter
--- OUTSIDE RECORDS SUMMARY | 2024-01-11 11:58 | External Medical Summary ---
Author Name Unknown Address Unknown Organization K[facility] [address] [place] [address] Laboratory Report Ordering Provider Test Date Status ASHISH KENT 12/28/2023 09:27:44 Final Observation Date Value Abnormality Reference (Units ) Status BUN 12/28/2023 09:27:44 6 6-20 (mg/dL) Final Creatinine 12/28/2023 09:27:44 0.7 0.5-1.0 (mg/dL) Final Glomerular filtration rate/1.73 sq M.predicted [Volume Rate/Area] in Serum, Plasma or Blood by Creatinine-based formula (CKD-EPI) 12/28/2023 09:27:44 >90 >=60 (mL/min) Final eGFR is calculated based on the CKD-EPI 2020 equation. Sodium 12/28/2023 09:27:44 127 Below low normal 135 -146 (mmol/L) Final Potassium 12/28/2023 09:27:44 5.4 Above high normal 3. 5-5.1 (mmol/L) Final Cl 12/28/2023 09:27:44 91 Below low normal 98- 107 (mmol/L) Final CO2 12/28/2023 09:27:44 22 22-32 (mmo l/L) Final Anion gap 12/28/2023 09:27:44 14 7-15 (mmol /L) Final Glucose 12/28/2023 09:27:44 105 70-120 (mg /dL) Final Albumin 12/28/2023 09:27:44 4.4 3.8-5.0 (g /dL) Final AST (Aspartate aminotransferase) 12/28/2023 09:27:44 17 10-35 (U/L) Fin al Results may be falsely eleva carlos due to hemolysis. Alk Phos 12/28/2023 09:27:44 121 35-130 (U/ L) Final Bilirubin, Total 12/28/2023 09:27:44 0.5 <=1 .2 (mg/dL) Final Calcium 12/28/2023 09:27:44 10.4 Above high normal 8. 4-10.2 (mg/dL) Final Protein 12/28/2023 09:27:44 7.1 6.0-8.3 (g /dL) Final ALT (Alanine aminotransferase) 12/28/2023 09:27:44 12 10-35 (U/L) Ronni velásquez Performing Location [facility] [address] [facility] [address]
--- OUTSIDE RECORDS SUMMARY | 2024-01-11 11:58 | External Medical Summary | Summary of Care ---
Author Name Unknown Organization [facility] Address [address] [facility] [address] Phone [phone] Care Team Providers Care Gui Developer Name Role Phone Alisha Horn MD Primary Care Provider [phone] Encounter Details Date Type Department Care Team (Late st Contact Info) Description 12/28/2023 Orders Only PATIENT PORTAL DO NOT DELETE THIS DEPT USED BY [place] [address] Allergies Active Allergy Reactions Criticality Noted Date [...] METFORMIN HCL ER (MOD) 500 MG PO [id number]:Preoper ative cardiovascular examination one daily Active PROCARDIA [...] metoprolol succinate XL (TOPROL XL) 25 MG [id number]:Palpita tions Take 1 Tab by mouth 2 [...] Date Diagnosed Date Resolved Date PURE HYPERCHOLESTEROLEM 08/10/2005 12/08/2008 Overview: Per Lipid Taxonomy. documented as of [...] 7:15 AM EDT Cardiac Studies Cardiac Studies, [facility] [address] [place] [address] 02/22/2024 9:30 AM EST Office Visit Cardiology, [facility] [address] [place] [address] Suzanne Mckeon PA-C [address] [place] [address] Scheduled Procedures Name Priority Associated Diagnoses Date/Ti me COLONOSCOPY FLEXIBLE PROXIMA L DIAGNOSTIC Recall Encounter for screening colonoscopy Health Maintenance Due Date Last Done Comments DISCUSS TOBACCO CESSATION (REFER TO SMARTSET #6846) 1963 Depression Monitoring 1975 HIV Screening 1978 [...] 08/17/2013, Additional history exists COVID-19 Vaccine ( - season) 2023 06/12/2020, 05/22/2020 Influenza Vaccine (FLU [...] this encounter Medical Devices Implanted Type Area Light Oil Operator Device Identifier Shelf Expiration Date Model / Serial / Lot Desara One Single Incision Sling System Implanted:Qty: 1 on 02/20/2022 by Zane Gaines MD at OR [facility] N/A: Vagina [employer] 04/16/2023 [facility] [id number] / / [id number] documented as of this encounter Advance Directives [...] Power of Attor emmanuelle? No Care Teams Gui Developer Relationship Specialty Start Date End Date Alisha Horn MD [address] [place] [address] PCP - General Family Medicine 10/19/23 documented as of this encounter
--- OUTSIDE RECORDS SUMMARY | 2024-01-11 11:58 | External Medical Summary | Continuity of Care Document ---
Author Name Unknown Organization [facility] Address [address] [place] [address] Phone [phone] Care Team Providers Care Field Counsel Name Role Phone Alisha Horn MD Care Team Information Receive r [phone] Problems Active Problems Provider Date Chronic pain syndrome Solange Broderick PA-C O nset: 01/27/2017 Type 2 diabetes mellitus TORSTEN Whitaker Onset: 05/10/2017 Essential hypertension Solange Broderick PA-C Onset: 05/10/2017 Hyperlipidemia Solange Broderick PA-C Onset: 05/10/2017 Peptic reflux disease Solange Broderick PA-C O nset: 05/10/2017 Generalized anxiety disorder Solange Broderick PA-C Onset: 05/10/2017 Low back pain Solange Broderick PA-C Onset: 09/07/2017 Lumbago-sciatica due to disp lacement of lumbar intervertebral disc Solange Broderick PA-C Onset: 11/08/2017 Impaired fasting glycemia Alisha Horn MD Ons et: 10/07/2022 Social History Type Date Description Comments Sex Female Tobacco Use Reviewed: 09/28/23 Currently Smokes 1/2 P ack Daily Smoking Status Reviewed: 12/01/23 Currently Smokes 1/2 Pack Daily Tobacco Use Reviewed: 07/23/23 Never Smoked Cigars Tobacco Use Reviewed: 07/23/23 Never Smoked A Pipe Smokeless Tobacco 07/23/2023 Never Used Smokeless To bacco ETOH Use Denies alcohol use Recreational Drug Use Denies Drug Use Allergies and adverse reactions Active Allergies Criticality Reaction | Severity Comments Date Lisinopril Unable to assess criticality cough 01/27/2017 Medications Active Medications SIG Qnty Indications Ordering Provider Date Diclofenac Sodium1% Gel Apply 2 GM Of Gel To The Affected Area 3 -4 Times Daily . 100gm M79.671 Alisha Horn MD 12/05/2023 Diclofenac Sodium1% Gel Apply 2 GM Of Gel To The Affected Area 3 -4 Times Daily . 100gm M79.671 Alisha Horn MD 12/05/2023 Losartan Vpvziiwyn72sy Tablets 1 tab by mouth every day with 50 mg tab ( total 75 mg) 30tabs I10 Alisha Horn MD 07/23/2023 Mfaarankaxy464ug Tablets 1 tab by mouth every day for continued therapy 30tabs G47.26 Alisha Horn MD 10/27/2021 Nifedipine ER Osmotic Obicmvy38qk Tablets ER 24HR take 1 tablet by mouth daily 90tabs I10 Alisha Horn MD 12/29/2020 Giiardvehhk67ic Tablets take 1 tablet by mouth before bedtime 90tabs E78.5 Alisha Horn MD 12/29/2020 Pgzwvgmgxp08xn Tablets take 1 tablet by mouth once daily as needed 90tabs Alisha Horn MD 12/04/2020 Hydrocodone Bitartrate/Acetamino ocmr05-041ir Tablets take 1 tablet by mouth three times a day if needed for pain - for continued therapy 39tabs G89.4 Alisha Horn MD 09/22/2019 M54.5 M51.17 Metoprolol Succinate ER25mg Tablets ER 24HR Take 1 Tablet By Mouth In The Morning And 1 Tablet In The Evening. 180tabs Alisha Horn MD 03/24/2019 Buspirone KHZ61od Tablets take 1 tablet by mouth three times a day 90tabs Lee Beckham MD 02/17/[address] take 1 tablet by mouth once daily 90tabs Alisha Horn MD 11/17/2018 Hkoybtqp82wq Tablets take 1 tablet by mouth three times a day if needed 90tabs M51.17 Alisha Horn MD 01/26/2018 Losartan Hsylgzvge36am Tablets take 1 tablet by mouth once daily 90tabs I10 Alisha Horn MD 09/08/2017 Metformin SFO526uj Tablets take 1 tablet by mouth daily 90tabs E11.9 Alisha Horn MD History Medications Diclofenac Sodium1% Gel apply 2 gm of gel to the affected area 3 -4 times daily . 100gm M79.671 Alisha Horn MD 12/01/2023 - 12/04/2023 Medications Administered in Office Medication SIG Qnty Indications Ordering Provider Date Injection Ketorolac Tromethamine Per 15 mg/.5cc (Toradol)Injection HILARY Burch 11/29/2020 Immunizations CPT Code Status Date Vaccine Lot # [id number] Given 12/01/2023 TB Intradermal Test [id number] C1 [id number] Given 01/21/2023 Influenza Virus Vaccine, Quadrivalent (Cciiv4), Derived From Cell [id number] 15312 Given 02/02/2022 Influenza Virus Vaccine, Quadrivalent (Cciiv4), Derived From Cell [id number] 99462 Given 02/02/2022 Pneumococcal Conjugate-Pr evnar 20 [id number] 11347 Given 01/23/2021 Influenza Virus Vaccine, Quadrivalent (Cciiv4), Derived From 2 Given 06/12/2020 Pfizer Sars-Cov -2 (Cov-19) vacc 30mcg/0.3ML 12Y+ EMR Doc Only 06760 Given 05/22/2020 Pfizer Sars-Cov -2 (Cov-19) vacc 30mcg/0.3ML 12Y+ EMR Doc Only 74138 Given 09/29/2019 TB Intradermal Test [id number] U-FLU Given 02/17/2019 Influenza,Unspecified 70492 Given 02/17/2019 Influenza Virus Vaccine, Quadrivalent (Cciiv4), Derived From Cell [id number] U-FLU Given 01/26/2018 Influenza,Unspecified 22977 Given 01/26/2018 Influenza Vacci ne Quadrivalent Preser/Antibiotic Free Im Use [id number] 58085 Given 02/15/2013 Tdap (Tetanus, diphtheria & acel. pertussis) Adacel or Boostrix 89175 Refused 02/02/2022 Shingrix [id number] Refused 01/01/2020 Shingrix [id number] Refused 11/08/2017 Shingrix Vital Signs Date Vital Result Comment 12/01/2023 3:20pm BP Systolic 160 mmHg BP Diastolic 80 mmHg BP Systolic Recheck 150 mmHg BP Diastolic Recheck 78 mmHg Body Temperature 97.9 F Heart Rate 82 /min Respiratory Rate 18 /min Weight 171.00 lb Weight 77.566 kg O2 % BldC Oximetry 96 % 09/28/2023 9:33am BP Systolic 152 mmHg BP Diastolic 84 mmHg Body Temperature 97.7 F Heart Rate 66 /min Respiratory Rate 15 /min Weight 173.00 lb Weight 78.473 kg Height 61 inches 5'1" BMI (Body Mass Index) 32.7 kg/m2 O2 % BldC Oximetry 97 % [place] Body Weight 105 lb Results Test Acquired Date Facility Test Result H/L Range Note CBC W/Diff 09/28/2023 [facility] [address] [place], [place] [id number] WBC 9.1 10^3/M3 3.1-9.2 RBC 4.46 10^6/M3 3.70-5.50 HGB 13.8 GR/DL 11.5-16.1 HCT 41.1 % 34.5-47.8 MCV 92.1 CUMICR 82.6-95.8 MCH 30.9 PICOGR 27.9-32.9 MCHC 33.5 % 32.6-35.4 RDW 13.2 % 11.4-14.6 PLT 331 10^3/M3 140-350 MPV 7.4 CUMICR 7.0-10.6 %Neut 55.4 % 40.0-75.0 %Lymph 31.7 % 17.0-45.0 %Randall 9.3 % 1.0-11.0 %Eos 2.8 % 0.0-6.0 %Baso 0.8 % 0.0-2.0 #Neut 5.1 10^3/M3 1.5-8.0 #Lymph 2.9 10^3/M3 0.8-3.2 #Randall 0.8 10^3/M3 0.0-0.8 #Eos 0.3 10^3/m3 0.0-0.4 #Baso 0.1 10^3/m3 0.0-0.2 Comp. Met 09/28/2023 [facility] [address] [place] [address] Glucose 100 mg/dL 70-110 BUN 9 mg/dL 6-25 Creatinine 0.7 mg/dL 0.5-1.2 Sodium 130 mEq/L Low 135-145 Potassium 5.0 mEq/L 3.5-5.0 Chloride 97 mEq/L 95-107 Co-2 26 mEq/L 24-31 Alk Phos 115 IU/L 43-122 Alt(SGPT) 11 IU/L 10-40 Ast(Sgot) 14 IU/L 3-42 T.Bilirubin 0.4 mg/dL 0.1-1.3 Calcium 10.0 mg/dL 8.5-10.6 Tot.Protein 7.0 g/dL 5.8-8.0 Albumin 4.4 g/dL 3.0-5.2 Globulin 2.6 g/dL 2.0-3.4 GFR 91 ML/MIN/1. 73SQM >60 Hba1c 09/28/2023 [facility] [address] [place] [address] A1c 5.60 % 4.70-6.50 1 Lipid 09/28/2023 [facility] [address] [place] [address] Cholesterol 183 mg/dL 0-200 2 Triglyceride 67 mg/dL 0-150 3 HDLD 71 mg/dL See Comment 4 Measured LDL 95 mg/dL 0-130 5 Calc VLDL 13.4 mg/dL See Comment 6 Chol/HDL 2.6 RATIO See Comment 7 Non-HDL 112 mg/dL See Comment 8 Microalbumin Urine 07/23/2023 [facility] [address] [place] [address] Urine Creat 107 mg/dL Comment Microalbumin 2.7 mg/dL High 0.0-1.8 9 ug/mgCREATININE 25 ug/mg 0-29 1 MEAN GLUCOSE IN mg/d L/A1c% POOR CONTROL FAIR CONTROL GOOD CONTROL EXCELLENT CONTROL 360-14 210-9 180-8 120-6 330-13 150-7 90-5 300-12 270-11 240-10 2 CHOLESTEROL Less than 200mg/dl Low risk 201-239 mg/dl Borderline risk Equal to or greater 240mg/dl High risk 3 TRIGLYCERIDES Less than 150mg/dl Normal 150-199mg/dl Borderline 200-499mg/dl High Greater than 500mg/dl Very High 4 HDL <40mg/dl Elevated Risk 41-59mg/dl Risk >=60mg/dl Least Risk 5 LDL <100mg/dl Optimal 100-129mg/dl Near Optimal 130-159mg/dl Borderline High 160-189mg/dl High >=190 Very High 6 VLDL Less than 30mg/dl Normal 7 CHOL/HDL <4.0 Optimal 4.0-5.0 Borderline >6.0 High Risk 8 NON-HDL 30mg/dl higher than LDL Target 9 *[facility] USES MICROALBUMIN/CREATINE RATIO : *<30 ug/mg CREATININE IS CLASSIFIED NORMAL *30-300 ug/mg CREATININE IS CLASSIFIED CLINICAL MICROALBUMINURIA *>300 ug/mg CREATININE IS CLASSIFIED CLINICAL ALBUMINURIA CLASSIFICATION OF A PATIENT SHOULD BE BASED ON TWO OF THREE ABNORMAL RESULTS COLLECTED WITHIN A 3 TO 6 MONTH TIME FRAME* Procedures Date Code Description Status 12/01/2023 3078F PVRP Diastolic BP <80 mmHg C ompleted 12/01/2023 3077F PVRP Systolic BP >/= 140 MMH G Completed 09/28/2023 G2211 Continuation of care e/m vis it add on Completed 09/28/2023 31134 Venipuncture Routine [facility] ed 09/28/2023 3079F PVRP Diastolic BP 80-89 MMHG Completed 09/28/2023 3077F PVRP Systolic BP >/= 140 MMH G Completed 07/29/2023 [id number] Mammogram Completed 07/23/2023 82296 Venipuncture Routine [facility] ed 07/23/2023 3079F PVRP Diastolic BP 80-89 MMHG Completed 07/23/2023 3077F PVRP Systolic BP >/= 140 MMH G Completed 08/03/2017 [id number] Colonoscopy Completed Medical Devices Description No Information Available Encounters Type Date Location Provider Dx Diagnosis Office Visit 12/01/2023 3:00p Keila Horn MD Z00.00 Encntr for ge neral adult medical exam w/o abnormal findings M79.671 Pain in right foot E78.5 Hyperlipidemia, unsp ecified E11.9 Type 2 diabetes emanuel itus without complications I10 Essential (primary) hypertension R00.2 Palpitations Z11.1 Encounter for screen ing for respiratory tuberculosis Office Visit 09/28/2023 9:30a Keila Horn MD I10 Essential (primary) hypertension F17.200 Nicotine dependence, unspecified, uncomplicated E11.9 Type 2 diabetes emanuel itus without complications E78.5 Hyperlipidemia, unsp ecified Office Visit 07/23/2023 9:00a Keila Horn MD I10 Essential (primary) hypertension E11.9 Type 2 diabetes emanuel itus without complications E78.5 Hyperlipidemia, unsp ecified N81.2 Incomplete uterovagi nal prolapse Z12.31 Encntr screen mammog janel for malignant neoplasm of breast M76.62 Achilles tendinitis, left leg M76.61 Achilles tendinitis, right leg Assessments Date Code Description Provider 12/01/2023 Z00.00 [facility] abnormal findings Alisha Horn MD 12/01/2023 M79.671 Pain in right foot Alisha smart MD 12/01/2023 E78.5 Hyperlipidemia, unspecified Alisha Horn MD 12/01/2023 E11.9 Type 2 diabetes mellitus wit hout complications Alisha Horn MD 12/01/2023 I10 Essential (primary) hyperten jocelin Horn MD 12/01/2023 R00.2 Palpitations Alisha Horn MD 12/01/2023 Z11.1 Encounter for sc reening for respiratory tuberculosis Alisha Horn MD 09/28/2023 I10 Essential (primary) elioen jocelin Horn MD 09/28/2023 F17.200 Nicotine dependence, unspeci fied, uncomplicated Alisha Horn MD 09/28/2023 E11.9 Type 2 diabetes mellitus wit hout complications Alisha Horn MD 09/28/2023 E78.5 Hyperlipidemia, unspecified Alisha Horn MD 07/23/2023 I10 Essential (primary) hyperten jocelin Horn MD 07/23/2023 E11.9 Type 2 diabetes mellitus wit hout complications Alisha Horn MD 07/23/2023 E78.5 Hyperlipidemia, unspecified Alisha Horn MD 07/23/2023 N81.2 Incomplete uterovaginal prol apse Alisha Horn MD 07/23/2023 Z12.31 Encounter for mn reening mammogram for malignant neoplasm of breast Alisha Horn MD 07/23/2023 M76.62 Achilles tendinitis, left le g Alisha Horn MD 07/23/2023 M76.61 Achilles tendinitis, right l eg Alisha Horn MD Plan of Treatment Future Appointment(s):* 02/29/2024 11:00 am - Alisha Horn MD at [facility] 12/01/2023 - Alisha Horn MD* Z00.00 Encounter for general adult medical examination without abnormal findings * M79.671 Pain in right foot* New Medication:* Diclofenac Sodium 1 % - apply 2 gm of gel to the affected area 3 -4 times daily . * Follow up:* f/up in 3 months * E78.5 Hyperlipidemia, unspecified * E11.9 Type 2 diabetes mellitus without complications* Comments:* Reviewed carbohydrates counting. Reviewed treatment for hypoglycemia. Reviewed importanceof increasing physical activity. Reviewed portion control. * I10 Essential (primary) hypertension * R00.2 Palpitations* Comments:* Following Cardiology Holter monitor ordered by Cardiology * Z11.1 Encounter for screening for respiratory tuberculosis Functional Status Description No Information Available Mental Status Description No Information Available Referrals Refer to Reason for Referral Status Appt [facility] [address] [phone]
--- OUTSIDE RECORDS SUMMARY | 2024-01-11 11:58 | External Medical Summary | Continuity of Care Document ---
Author Name Unknown Organization [facility] Address [address] [place] [address] Phone [phone] Care Team Providers Care Lumber Chain Offbearer Name Role Phone Alisha Horn MD Care Team Information Receive r [phone] Problems Active Problems Provider Date Chronic pain [...] Indications Ordering Provider Date Diclofenac Sodium1% Gel apply 2 gm of gel to the affected area 3 -4 times daily . 100gm M79.671 Alisha Horn MD 12/01/2023 Losartan Ssgdhpjjc45he Tablets 1 tab by mouth every day with 50 mg tab ( total 75 mg) 30tabs I10 Alisha Horn MD 07/23/2023 Yefhftpfwat703mi Tablets 1 tab by mouth every day for continued therapy 30tabs G47.26 Alisha Horn MD 10/27/2021 Nifedipine ER Osmotic Uujcbni34qt Tablets ER 24HR take 1 tablet by mouth daily 90tabs I10 Alisha Horn MD 12/29/2020 Mygorllyndr95yv Tablets take 1 tablet by mouth before bedtime 90tabs E78.5 Alisha Horn MD 12/29/2020 Iptyrphrxb71yf Tablets take 1 tablet by mouth once daily as needed 90tabs Alisha Horn MD 12/04/2020 Hydrocodone Bitartrate/Acetamino igrf82-635co Tablets take 1 tablet by mouth three times a day if needed for pain - for continued therapy 39tabs G89.4 Alisha Horn MD 09/22/2019 M54.5 M51.17 Metoprolol Succinate ER25mg Tablets ER 24HR Take 1 Tablet By Mouth In The Morning And 1 Tablet In The Evening. 180tabs Alisha Horn MD 03/24/2019 Buspirone ZLI50rz Tablets take 1 tablet by mouth three times a day 90tabs Lee Beckham MD 02/17/[address] take 1 tablet by mouth once daily 90tabs Alisha Horn MD 11/17/2018 Ewiwdawq06ou Tablets take 1 tablet by mouth three times a day if needed 90tabs M51.17 Alisha Horn MD 01/26/2018 Losartan Zhxfixnhd28ne Tablets take 1 tablet by mouth once daily 90tabs I10 Alisha Horn MD 09/08/2017 Metformin GVU797hr Tablets take 1 tablet by mouth daily 90tabs E11.9 Alisha Horn MD Medications Administered in Office Medication SIG Qnty Indications Ordering Provider Date Injection Ketorolac Tromethamine Per 15 mg/.5cc (Toradol)Injection HILARY Burch 11/29/2020 Immunizations CPT Code Status Date Vaccine Lot # [id number] Given 12/01/2023 TB Intradermal Test [id number] C1 [id number] Given 01/21/2023 Influenza Virus Vaccine, Quadrivalent (Cciiv4), Derived From Cell [id number] 48630 Given 02/02/2022 Influenza Virus Vaccine, Quadrivalent (Cciiv4), Derived From Cell [id number] 41660 Given 02/02/2022 Pneumococcal Conjugate-Pr evnar 20 [id number] 61299 Given 01/23/2021 Influenza Virus Vaccine, Quadrivalent (Cciiv4), Derived From 9 Given 06/12/2020 Pfizer Sars-Cov -2 (Cov-19) vacc 30mcg/0.3ML 12Y+ EMR Doc Only [id number] Given 05/22/2020 Pfizer Sars-Cov -2 (Cov-19) vacc 30mcg/0.3ML 12Y+ EMR Doc Only 15327 Given 09/29/2019 TB Intradermal Test [id number] [id number] U-FLU Given 02/17/2019 Influenza,Unspecified 30943 Given 02/17/2019 Influenza Virus Vaccine, Quadrivalent (Cciiv4), Derived From Cell [id number] U-FLU Given 01/26/2018 Influenza,Unspecified 34107 Given 01/26/2018 Influenza Vacci ne Quadrivalent Preser/Antibiotic Free Im Use [id number] 08882 Given 02/15/2013 Tdap (Tetanus, diphtheria & acel. pertussis) Adacel or Boostrix 13997 Refused 02/02/2022 Shingrix 13272 Refused 01/01/2020 Shingrix 09623 Refused 11/08/2017 Shingrix Vital Signs Date Vital [...] kg/m2 O2 % BldC Oximetry 97 % [place] Body Weight 105 lb Results Test Acquired Date Facility Test Result H/L Range Note CBC W/Diff 09/28/2023 [facility] [address] [place] [address] [phone] WBC 9.1 10^3/M3 3.1-9.2 RBC 4.46 10^6/M3 3.70-5.50 HGB 13.8 GR/DL 11.5-16.1 HCT 41.1 % 34.5-47.8 MCV 92.1 CUMICR 82.6-95.8 MCH 30.9 PICOGR 27.9-32.9 MCHC 33.5 % 32.6-35.4 RDW 13.2 % 11.4-14.6 PLT 331 10^3/M3 140-350 MPV 7.4 CUMICR 7.0-10.6 %Neut 55.4 % 40.0-75.0 %Lymph 31.7 % 17.0-45.0 %[place] 9.3 % 1.0-11.0 %Eos 2.8 % 0.0-6.0 %Baso 0.8 % 0.0-2.0 #Neut 5.1 10^3/M3 1.5-8.0 #Lymph 2.9 10^3/M3 0.8-3.2 #[place] 0.8 10^3/M3 0.0-0.8 #Eos 0.3 10^3/m3 0.0-0.4 #Baso 0.1 10^3/m3 0.0-0.2 Comp. Met 09/28/2023 [facility] [address] [place] [address] Glucose 100 mg/dL 70-110 BUN 9 mg/dL [...] GFR 91 ML/MIN/1. 73SQM >60 Hba1c 09/28/2023 [facility] [address] [place], [place] [id number] A1c 5.60 % 4.70-6.50 1 Lipid 09/28/2023 [facility] [address] [place] [address] Cholesterol 183 mg/dL 0-200 2 Triglyceride 67 mg/dL 0-150 3 HDLD 71 mg/dL See Comment 4 Measured LDL 95 mg/dL 0-130 5 Calc VLDL 13.4 mg/dL See Comment 6 Chol/HDL 2.6 RATIO See Comment 7 Non-HDL 112 mg/dL See Comment 8 Microalbumin Urine 07/23/2023 [facility] [address] [place] [address] Urine Creat 107 mg/dL Comment Microalbumin 2.7 [...] 30mg/dl higher than LDL Target 9 *THE CITIZEN [place] [employer] USES MICROALBUMIN/CREATINE RATIO : *<30 ug/mg CREATININE IS CLASSIFIED NORMAL *30-300 ug/mg CREATININE IS CLASSIFIED CLINICAL MICROALBUMINURIA *>300 ug/mg CREATININE IS CLASSIFIED CLINICAL ALBUMINURIA CLASSIFICATION OF A PATIENT SHOULD BE BASED ON TWO OF THREE ABNORMAL RESULTS COLLECTED WITHIN A 3 TO 6 MONTH TIME FRAME* Procedures Date Code Description Status 09/28/2023 G2211 Continuation of care e/m vis it add on Completed 09/28/2023 81455 Venipuncture Routine [facility] ed 09/28/2023 3079F PVRP Diastolic BP 80-89 MMHG Completed 09/28/2023 3077F PVRP Systolic BP >/= 140 MMH G Completed 07/29/2023 82833050 Mammogram Completed 07/23/2023 57322 Venipuncture Routine [facility] ed 07/23/2023 3079F PVRP Diastolic BP 80-89 MMHG Completed 07/23/2023 3077F PVRP Systolic BP >/= 140 MMH G Completed 08/03/2017 [id number] Colonoscopy Completed Medical Devices Description No Information Available Encounters Type Date Location Provider Dx Diagnosis Office Visit 09/28/2023 9:30a Keila Horn MD I10 Essential (pr imary) hypertension F17.200 Nicotine dependence, unspecified, uncomplicated E11.9 [...] leg Assessments Date Code Description Provider 12/01/2023 M79.671 Pain in right foot Alisha smart MD 12/01/2023 E78.5 Hyperlipidemia, unspecified Alisha Horn MD 12/01/2023 E11.9 Type 2 diabetes mellitus wit hout complications Alisha Horn MD 12/01/2023 I10 Essential (primary) georgina Horn MD 12/01/2023 R00.2 Palpitations Alisha Horn MD 09/28/2023 I10 Essential (primary) georgina Horn MD 09/28/2023 F17.200 Nicotine dependence, unspeci fied, uncomplicated Alisha Horn MD 09/28/2023 E11.9 Type 2 diabetes mellitus wit hout complications Alisha Horn MD 09/28/2023 E78.5 Hyperlipidemia, unspecified Alisha Horn MD 07/23/2023 I10 Essential (primary) georgina Horn MD 07/23/2023 E11.9 Type 2 diabetes mellitus wit hout complications Alisha Horn MD 07/23/2023 E78.5 Hyperlipidemia, unspecified Alisha Horn MD 07/23/2023 N81.2 Incomplete uterovaginal prol apse Alisha Horn MD 07/23/2023 Z12.31 Encounter for sc reening mammogram for malignant neoplasm of breast Alisha Horn MD 07/23/2023 M76.62 Achilles tendinitis, left le g Alisha Horn MD 07/23/2023 M76.61 Achilles tendinitis, right l eg Alisha Horn MD Plan of Treatment Future Appointment(s):* 02/29/2024 11:00 am - Alisha Horn MD at [facility] 12/01/2023 - Alisha Horn MD* M79.671 Pain in right foot* New Medication:* [...] Following Cardiology Holter monitor ordered by Cardiology Functional Status Description No Information Available Mental Status Description No Information Available Referrals Refer to Reason for Referral Status [facility]t [facility] [address] [facility] [id number] [phone]
--- OUTSIDE RECORDS SUMMARY | 2024-01-11 11:58 | External Medical Summary ---
Author Name Unknown Address Unknown Organization K0G:[facility]ORATORY [facility] [address] [place] [address] Laboratory Report Ordering Provider Test Date Status ASHISH KENT 12/28/2023 09:27:44 Final Observation Date Value Abnormality Reference (Units ) Status WBC, Total 12/28/2023 09:27:44 10.16 4.00-10.8 0 (K/uL) Final RBC 12/28/2023 09:27:44 4.82 3.85-5.15 (M/uL) Final Hemoglobin 12/28/2023 09:27:44 14.7 12.0-15.3 (g/dL) Final HCT 12/28/2023 09:27:44 43.3 36.0-45.2 (%) Final MCV 12/28/2023 09:27:44 89.8 81.5-97.5 (fL) Final MCH 12/28/2023 09:27:44 30.5 27.0-34.0 (pg) Final MCHC 12/28/2023 09:27:44 33.9 32.0-36.0 (g/dL) Final RDW 12/28/2023 09:27:44 12.7 11.5-15.5 (%) Final Platelets 12/28/2023 09:27:44 338 140-400 (K /uL) Final MPV 12/28/2023 09:27:44 9.2 6.6-11.1 ( fL) Final Performing Location [facility] [address] [place] [address]
--- OUTSIDE RECORDS SUMMARY | 2024-01-11 11:58 | External Medical Summary | Summary of Care ---
Author Name Unknown Organization [facility] Address [address] [place] [address] Phone [phone] Care Team Providers Care Candy Maker Helper Name Role Phone Alisha Horn MD Primary Care Provider [phone] Reason for Visit * Reason Comments Outpatient Testing Encounter Details Date Type Department Care Team (Late st Contact Info) Description 12/28/2023 9:50 AM EDT Laboratory Laboratory, [facility] [address] [place] [phone] [facility] [address] [place] [address] Dyspnea on exertion; HTN, goal below 140/90; [...] METFORMIN HCL ER (MOD) 500 MG PO DQ28Gtkcmogaufn:Preoper ative cardiovascular examination one daily Active PROCARDIA [...] metoprolol succinate XL (TOPROL XL) 25 MG WE43Spnvmcbafiu:Palpita tions Take 1 Tab by mouth 2 [...] 7:15 AM EDT Cardiac Studies Cardiac Studies, [facility] [address] [place] [address] 02/22/2024 9:30 AM EST Office Visit Cardiology, [facility] [address] [address] Suzanne Mckeon PA-C [address] [place] [phone] Pending Results Name Type Priority Associated Diagnoses Date /Time CBC Lab Routine Dyspnea on exertion HTN, goal below 140/90 12/28/2023 9:27 AM EDT COMPREHENSIVE METABOLIC PANEL Lab Routine Dyspnea on exertion Abnormal nuclear stress test HTN, goal below 140/90 12/28/2023 9:27 AM EDT PT INR Lab Routine Dyspnea on exertion Abnormal nuclear stress test HTN, goal below 140/90 12/28/2023 9:27 AM EDT APTT Lab Routine Dyspnea on exertion Abnormal nuclear stress test HTN, goal below 140/90 12/28/2023 9:27 AM EDT Scheduled Procedures Name Priority Associated Diagnoses Date/Ti me COLONOSCOPY FLEXIBLE PROXIMA L DIAGNOSTIC Recall Encounter for screening colonoscopy Health Maintenance Due Date Last Done Comments DISCUSS TOBACCO CESSATION (REFER TO SMARTSET #9278) 1963 Depression Monitoring 1975 HIV Screening 1978 [...] this encounter Medical Devices Implanted Type Area Gastroenterology Physician Device Identifier Shelf Expiration Date Model / Serial / Lot Desara One Single Incision Sling System Implanted:Qty: 1 on 02/20/2022 by Zane Gaines MD at OR [facility] N/A: [employer] 04/16/2023 [id number] / / [id number] documented as of this encounter Visit Diagnoses [...] Power of Attor emmanuelle? No Care Teams Candy Maker Helper Relationship Specialty Start Date End Date Alisha Horn MD [address] [place] [address] PCP - General Family Medicine 10/19/23 documented as of this encounter
--- OUTSIDE RECORDS SUMMARY | 2024-01-11 11:58 | External Medical Summary | Summary of Care ---
Author Name Unknown Organization [facility] Address [address] [place] [address] Phone [phone] Care Team Providers Care Supervisor Chemical Name Role Phone Alisha Horn MD Primary Care Provider [phone] Reason for Visit * Reason Onset Date Comments Abnormal Test Results 12/21/2023 Encounter Details Date Type Department Care Team (Late st Contact Info) Description 12/21/2023 Telephone Cardiology, [facility] [address] [place] [address] Yoli Hinojosa, [address] [facility] [place] [address] Abnormal Test Results Allergies Active Allergy Reactions [...] METFORMIN HCL ER (MOD) 500 MG PO TN31Kmuuftuvccv:Preo perative cardiovascular examination one daily Active PROCARDIA [...] metoprolol succinate XL (TOPROL XL) 25 MG CG10Twntticgpfg:Palp itations Take 1 Tab by mouth 2 [...] the labs. Sent Rx for losartan to [facility], please confirm that is where pt would like rx to go Yoli Hinojosa DO documented in this encounter Plan of Treatment Upcoming Encounters Date Type Department Care Team (Late st Contact Info) Description 01/26/2024 7:15 AM EDT Cardiac Studies Cardiac Studies, [facility] [address] [address] 02/22/2024 9:30 AM EST Office Visit Cardiology, [facility] [address] [address] Suzanne Mckeon PA-C [address] [place] [address] Scheduled Orders Name Type Priority Associated Diagnoses [...] this encounter Medical Devices Implanted Type Area Automotive Quality Manager Device Identifier Shelf Expiration Date Model / Serial / Lot Desara One Single Incision Sling System Implanted:Qty: 1 on 02/20/2022 by Zane Gaines MD at OR [facility] N/A: Vagina [employer] 04/16/2023 [id number] / / [id number] documented as of this encounter Visit Diagnoses [...] Power of Attor emmanuelle? No Care Teams Supervisor Chemical Relationship Specialty Start Date End Date Alisha Horn MD [address] [place] [address] PCP - General Family Medicine 10/19/23 documented as of this encounter
--- OUTSIDE RECORDS SUMMARY | 2024-01-11 11:58 | External Medical Summary | Summary of Care ---
Author Name Unknown Organization [facility] Address [address] [place] [address] Phone [phone] Care Team Providers Care Weapons Specialist Name Role Phone Alisha Horn MD Primary Care Provider [phone] Reason for Visit * Reason Comments Outpatient Testing Encounter Details Date Type Department Care Team (Late st Contact Info) Description 12/28/2023 9:50 AM EDT Laboratory Laboratory, [facility] [address] [place] [phone] [facility] [address] [place] [address] Dyspnea on exertion; HTN, goal below 140/90; [...] METFORMIN HCL ER (MOD) 500 MG PO FC62Jljckfzdvqj:Preoper ative cardiovascular examination one daily Active PROCARDIA [...] metoprolol succinate XL (TOPROL XL) 25 MG ML77Yvzxscekpxh:Palpita tions Take 1 Tab by mouth 2 [...] 7:15 AM EDT Cardiac Studies Cardiac Studies, [facility] [address] [address] 02/22/2024 9:30 AM EST Office Visit Cardiology, [facility] [address] [address] Suzanne Mckeon PA-C [address] [place] [address] Pending Results Name Type Priority Associated Diagnoses [...] Comments DISCUSS TOBACCO CESSATION (REFER TO SMARTSET #3760) 1965 Depression Monitoring 1975 HIV Screening 1978 [...] this encounter Medical Devices Implanted Type Area Spring Crater Device Identifier Shelf Expiration Date Model / Serial / Lot Desara One Single Incision Sling System Implanted:Qty: 1 on 02/20/2022 by Zane Gaines MD at OR [facility] N/A: Vagina [employer] 04/16/2023 [id number] / / [id number] documented as of this encounter Visit Diagnoses [...] Power of Attor emmanuelle? No Care Teams Weapons Specialist Relationship Specialty Start Date End Date Alisha Horn MD [address] [place] [address] PCP - General Family Medicine 10/19/23 documented as of this encounter
--- OUTSIDE RECORDS SUMMARY | 2024-01-11 11:58 | External Medical Summary | Summary of Care ---
Author Name Unknown Organization [facility] Address [address] [place] [address] Phone [phone] Care Team Providers Care Motor Vehicle Inspector Name Role Phone Alisha Horn MD Primary Care Provider [phone] Encounter Details Date Type Department Care Team (Late st Contact Info) Description 12/21/2023 Orders Only Unspecified Department Ramesh Lyman, DO [address] [place] [address] Allergies Active Allergy Reactions Criticality Noted Date [...] METFORMIN HCL ER (MOD) 500 MG PO MU48Nmumdcusklg:Preoper ative cardiovascular examination one daily Active PROCARDIA [...] metoprolol succinate XL (TOPROL XL) 25 MG CW69Dpocdapmvnr:Palpita tions Take 1 Tab by mouth 2 [...] 7:15 AM EDT Cardiac Studies Cardiac Studies, [facility] [address] [place] [address] 02/22/2024 9:30 AM EST Office Visit Cardiology, [facility] [address] [place] [address] Suzanne Mckeon PA-C [address] [place] [address] Scheduled Procedures Name Priority Associated Diagnoses Date/Ti me COLONOSCOPY FLEXIBLE PROXIMA L DIAGNOSTIC Recall Encounter for screening colonoscopy Health Maintenance Due Date Last Done Comments DISCUSS TOBACCO CESSATION (REFER TO SMARTSET #5548) 1965 Depression Monitoring 1975 HIV Screening 1978 [...] this encounter Medical Devices Implanted Type Area Toll Testboard Worker Device Identifier Shelf Expiration Date Model / Serial / Lot Desara One Single Incision Sling System Implanted:Qty: 1 on 02/20/2022 by Zane Gaines MD at OR [facility] N/A: Vagina [employer] 04/16/2023 [facility]-[id number] / / [id number] documented as of this encounter Procedures Procedure Name Priority Date/Time Associated Diagnosis Comments NM MYOCARDIAL PERFUSION IMAGING SPECT MULTIPLE STUDIES WITH PHARMACOLOGIC INTERVENTION Routine 12/21/2023 10:45 AM EDT documented in this encounter Results * NM MYOCARDIAL PERFUSION IMAGING SPECT MULTIPLE STUDIES WITH PHARMACOLOGIC INTERVENTION (12/21/2023 10:45 AM EDT) 12/21/2023 10:4 5 AM EDT R[facility]h [facility] documented in this encounter Advance Directives * [...] Power of Attor emmanuelle? No Care Teams Motor Vehicle Inspector Relationship Specialty Start Date End Date Alisha Horn MD [address] [place] [address] PCP - General Family Medicine 10/19/23 documented as of this encounter
[2024-01-11] MEDS ORDERED: ONDANSETRON INJ 2 MG/ML 2 ML VIAL IV PRN (12:37)
--- NOTE | 2024-01-11 12:55 | History & Physical Report ---
Date of Service January 11, 2024 Assessment & Plan (1) S/P cardiac catheterization: Plan: This is a 58 yo F with PMH of DM II, dyslipidemia, HTN, tobacco use disorder, history of SVT, depression/anxiety and abnormal stress test who presented today for planned diagnostic cardia catheterization with Dr. Romero. Severe CAD and Elevated Intracardiac Pressures were noted on diagnostic cath S/p PCI by Dr. Mcgowan with LEAH x 2 to ostial left circumflex and LEAH x 3 to ostial RCA Observation in PCU overnight Loaded with Ticagrelor, aspirin 81mg, atorvastatin 80mg HS, hctz 12.5mg per Dr. Terrazas. Also continued on losartan 25mg, nifedipine 60mg daily Routine cardiology consult with [facility], repeat labs in AM (2) DM type 2 (diabetes mellitus, type 2): Plan: A1c baseline unknown, ordered for AM Hold home agents SSI while in-patient BSG AC HS (3) Dyslipidemia: Plan: Transitioning to atorvastatin, as above (4) Hypertension: Plan: Continue losartan, nifedipine 60mg daily, Toprol 25mg BID, hctz 12.5mg added by Dr. Terrazas History of Present Illness Chief Complaint: planned cath s/p LEAH x 5 Primary Care Provider: Alisha Horn MD This is a 58 yo F with PMH of DM II, dyslipidemia, HTN, tobacco use disorder, history of SVT, depression/anxiety and abnormal stress test who presented today for planned diagnostic cardia catheterization with Dr. Romero. Severe CAD and Elevated Intracardiac Pressures were noted with 2 vessel disease requiring a total of 5 LEAH to be placed by Dr. Terrazas. Patient follows with Dr. Lyman for cardiac care and has had increased dyspnea on exertion along with palpitations over the past few months. Underwent dobutamine stress test with abnormal result at the beginning of the month. Seen and evaluated post procedure. Patient feeling well. No chest pain or shortness of breath. Tolerated lunch without issue. No nausea, vomiting or abdominal pain. No dysuria, diarrhea or constipation. No bleeding at the access sites of right wrist and right groin. Has decreased smoking to 6 cigarettes daily. Is on metformin for type 2 diabetes. Receives primary care at a family practice in [place]. Allergies Allergy/AdvReac Type Severity Reaction Status Date / Time lisinopril AdvReac Unknown COUGH Unverified 02/11/12 12:05 Home Medications Medication Instructions Recorded Confirmed Type albuterol 90 mcg/actuation aerosol 90 mcg inhalation Q4H PRN 01/11/24 01/11/24 History inhaler Shortness Of Breath Or Wheezing armodafinil 200 mg tablet 200 mg PO DAILY 01/11/24 01/11/24 History baclofen 20 mg tablet 20 mg PO TID PRN Muscle Spasm 01/11/24 01/11/24 History buspirone 5 mg tablet 20 mg PO BID PRN Anxiety 01/11/24 01/11/24 History furosemide 20 mg tablet 20 mg PO DAILY PRN Edema 01/11/24 01/11/24 History hydrocodone 10 mg-acetaminophen 1 tab PO Q8H PRN Severe Pain 01/11/24 01/11/24 History 325 mg tablet (Scale Score 7-10) loratadine 10 mg tablet (Claritin) 10 mg PO DAILY PRN allergies 01/11/24 01/11/24 History losartan 25 mg tablet 25 mg PO DAILY 01/11/24 01/11/24 History metformin 500 mg tablet 500 mg PO DAILY 01/11/24 01/11/24 History metoprolol succinate 25 mg 25 mg PO BID 01/11/24 01/11/24 History tablet,extended release 24 hr nifedipine 60 mg tablet,extended 60 mg PO DAILY 01/11/24 01/11/24 History release 24 hr pantoprazole 40 mg tablet,delayed 40 mg PO BID 01/11/24 01/11/24 History release simvastatin 80 mg tablet 80 mg PO HS 01/11/24 01/11/24 History Past Med/Surg History Problem List S/P cardiac catheterization DM type 2 (diabetes mellitus, type 2) Dyslipidemia Hypertension Angina of effort Abnormal nuclear stress test Palpitations Medical History Asthma SVT (supraventricular tachycardia) Depression Anxiety GERD (gastroesophageal reflux disease) Hyperlipidemia COPD (chronic obstructive pulmonary disease) Surgical History (Updated 01/11/24 @ 14:21 by Nati Muniz PA-C) S/P LLOYD-BSO S/P laparoscopic cholecystectomy Family History Other Cancer Heart disease Social History Smoking Status: Current every day smoker Tobacco Type: Cigarettes Second Hand Exposure: No; Do You Dip or Chew Tobacco: No; Tobacco Cessation Education Requested by Patient: No Hx Alcohol Use: No Hx Substance Use: Yes Preferred Language: [place] Assistant Store Manager Operations Required: No Beliefs That Will Affect Care: None Current Living Situation: Family Other Information That Helps Us Care for You: No Feels Safe at Home: Yes Safety Concerns: Feels Safe At This Time Review of Systems Review of Systems: At least ten systems reviewed and negative except as noted in the HPI. Physical Exam Physical Exam: General Appearance: WD/WN, vitals as above, NAD, sitting up in bed, pleasant, conversing easily Head: normocephalic, atraumatic Eyes: normal inspection, PERRL, conjunctivae normal, anicteric sclerae ENT: external ear and nose normal, oropharynx normal Neck: normal visual inspection, trachea midline, no thyromegaly Respiratory: normal respiratory effort, lungs clear to auscultation, no wheeze, rales, rhonchi. No accessory muscle use Cardiovascular: regular rate, rhythm, normal peripheral pulses, no BLE edema. Vessels: no JVD, + R radial and groin access sites with dressing c/d/i. Chest: normal inspection of chest Abdomen/GI: normal bowel sounds, soft, nontender, no hepatosplenomegaly Extremities/Musculoskeletal: no cyanosis or clubbing, extremities motor strength 5/5 Neurologic: PERRL, EOMI, accommodation nl, no face palsy, no dysarthria, CN's II-XI intact bilaterally and moves all extremities Psychiatric: A+Ox3, euthymic affect Skin: no rashes, normal color, warm/dry Results & Data Results & Data Vital Signs (Past 12 Hours) Vital Signs Pulse Resp BP Pulse Ox O2 Del Method 01/11/24 12:30 67 14 170/92 H 96 Room Air 01/11/24 12:15 67 14 178/89 H 96 Room Air 01/11/24 12:00 66 14 136/73 96 Room Air 01/11/24 11:45 68 14 181/84 H 93 Room Air 01/11/24 07:01 84 14 160/100 H 96 Room Air Code Status & VTE Plan VTE Prophylaxis Plan VTE Prophylaxis will be ordered: Yes Supervising Physician Co-Signing Physician Notes Pt was seen and examined by myself, Summer Salcido MD on the day of service. Care was coordinated with Nati Muniz PA-C. 58yoF who presented for scheduled cath, requiring stent placement. She notes she was having significant SOB that has since improved post procedure. Denied chest pain at the time of exam, resting comfortably, watching tv. RRR, breath sounds clear bilaterally. Telemetry monitoring overnight Continue with medications including DAPT, BB, ARB Otherwise as above. I spent a total [id number] coordinating, documenting, and providing care for this patient excluding time spent in the performance of separately billed services
[2024-01-11] MEDS: SODIUM CHLORIDE 0.9% 1,000 ML IV SCH (13:44)
[2024-01-11] MEDS ORDERED: CARBOHYDRATES FOR HYPOGLYCEMIA PO PRN (14:11)
[2024-01-11] MEDS ORDERED: GLUCOSE 40% GEL 15 GM TUBE PO PRN (14:11)
[2024-01-11] MEDS ORDERED: DEXTROSE 50% 50 ML SYRINGE IV PRN (14:11)
[2024-01-11] MEDS ORDERED: GLUCAGON FOR INJ 1 MG VIAL SQ PRN (14:11)
[2024-01-11] MEDS ORDERED: GLUCOSE 10 TAB/TUBE PO PRN (14:11)
[2024-01-11] MEDS ORDERED: LORATADINE 10 MG TAB PO PRN (14:13)
[2024-01-11] MEDS ORDERED: BACLOFEN 20 MG TAB PO PRN (14:13)
[2024-01-11] MEDS ORDERED: PNEUMOCOCCAL VACCINE (PCV20) 20-VAL CONJ-DIP CRM/PF 0.5 ML SYR IM ONE (14:36)
[2024-01-11] MEDS: NIFEdipine EXTENDED REL 30 MG TABCR PO SCH (14:40)
[2024-01-11] MEDS ORDERED: busPIRone 5 MG TAB PO PRN (14:40)
[2024-01-11] MEDS: LOSARTAN POTASSIUM 25 MG TAB PO SCH (14:40)
[2024-01-11] MEDS: INSULIN ASPART PER UNIT CHARGE SC SCH (15:00)
[2024-01-11] MEDS: HYDROcodone/ACETAMINOPHEN 10/325 TAB PO PRN (16:26)
[2024-01-11] MEDS: NITROGLYCERIN 2% OINTMENT 30GM TUBE EXT SCH (16:33)
[2024-01-11] MEDS: ALBUTEROL HFA 8 GM INHALER INH SCH (16:37)
[2024-01-11] MEDS: PANTOprazole 40 MG TAB PO SCH (20:29)
[2024-01-11] MEDS: METOPROLOL SUCC 25MG EXT REL TAB PO SCH (20:29)
--- NOTE | 2024-01-11 20:48 | Post Anesthesia Assessment ---
Date of Service January 11, 2024 Post Sedation Assessment Vital Signs Temp Pulse Pulse Resp BP Pulse Ox O2 Del Method 01/11/24 20:41 71 18 94 Room Air 01/11/24 20:28 80 163/82 H 01/11/24 19:24 98.4 F 81 20 162/80 H 96 Room Air 01/11/24 16:38 79 22 96 Room Air 01/11/24 15:39 98.8 F 62 18 169/86 H 96 Room Air 01/11/24 14:42 98.8 F 72 18 150/80 H 95 Room Air 01/11/24 13:25 98.6 F 99 H 16 172/74 H 95 Room Air 01/11/24 13:00 80 01/11/24 12:50 98.4 F 65 18 183/109 H 98 Room Air 01/11/24 12:50 Room Air 01/11/24 12:30 67 14 170/92 H 96 Room Air 01/11/24 12:15 67 14 178/89 H 96 Room Air 01/11/24 12:00 66 14 136/73 96 Room Air 01/11/24 11:45 68 14 181/84 H 93 Room Air 01/11/24 07:01 84 14 160/100 H 96 Room Air Recovery Score Activity: Moves 4 extremities Respiration: Deep Breath/Cough Circulation: +/-20% PreAnes Value Consciousness: Fully Awake Oxygen Saturation: > 92% On Room Air Post Anesthesia Score: 10 Discharge Sedation Level of Care: Fast Track Phase II Post Sedation Plan On clinical assessment, the patient appears to have tolerated the sedation without complications. Patient is recovering as anticipated. Patient will continue to be monitored by nursing and may be discharged when sedation discharge criteria are met per below protocol. Upon Completions of procedure up to 15 minutes continue every 5 minute vital signs and the P.A.R. score; then discharge to a Phase I or Fast Track to Phase II per the following guidelines: * Discharge Patient to appropriate Phase II area if PAR is 8 or greater or return to pre- procedure baseline. The post - procedure orders will be as directed. * If PAR score is less than 8 or not return to pre-procedure baseline then patient will follow Phase I monitoring till PAR is reached for Phase II. The Phase I may be done in procedure room or may call to secure a Phase I area. * If naloxone or flumazenil are used for reversal, hold in Phase I for continued monitoring from when last reversal dose was given for a minimum of 60 minutes or longer pending the nurse and/or physician discretion of patient condition before discharge to Phase II. Please call the Sedation Physician to re-evaluate and complete post-note for discharge to Phase II area. Do NOT discharge from procedure sedation or Phase 1 until post- sedation evaluation note is complete by procedure /sedation MD Sedation Discharge Instructions to be given to the patient at discharge to home.
--- NOTE | 2024-01-11 20:59 | Cardiac Catheterization ---
[facility] Data: Polisher Eyeglass Frames Cardiac Status Clinical evaluation leading to the procedure CAD Presenation: Positive Stress Test Anginal Classification: CCS III Diagnostic Physicians Name: Jason Terrazas MD Closure Device Recommendations: PCI without planned CABG (Interventional cardiology consulted for further evaluation of ostial left circumflex and ostial RCA stenosis.) Cardiac Cath Procedure Full Procedure Date January 11, 2024 Pre-Procedure Diagnosis Pre-Procedure Diagnosis: Angina and Positive Stress Test AUC Score AUC Score: 7 Post-Procedure Diagnosis Post-Procedure Diagnosis: Severe CAD and Successful PCI Procedure(s) Performed Procedure(s) Performed: Drug Eluting Stent and Procedure (Shockwave IVL) Motorcoach Operator Jason Terrazas MD Customs Officer(s) Levir ENERGY AND CONSERVATION TECHNICIAN Estimated Blood Loss Estimated Blood Loss: 25 Medication(s) Medication(s): Fentanyl, Heparin, Lidocaine 1%, Nicardipine, Nitroglycerin and Versed Medication(s): Ticagrelor Summary of Findings Indication: Abnormal stress test, exertional angina Access: 6 Fr right radial artery, 6 Fr right BULLET LUBRICATING MACHINE OPERATOR Catheters: 5 Fr EBU 3.5 guide, 6 Fr JR4 guide Findings: For full details of patient's coronary angiography please see cath report dictated by Dr. Romero. Briefly, patient found to have severe proximal RCA disease with faint [id number] collaterals. Also with possible ostial circumflex disease and severe mid circumflex into OM 2. Decision to further evaluate ostial circumflex with IVUS. IVUS of ostial circumflex Unable to pass 6 Fr guide through right radial/brachial artery spasm. After additional vasodilators able to cannulate LMCA with a 5 Fr EBU 3.5 guide Transformation Lead 50 wire navigated into distal OM 2 Daily IVUS catheter placed to mid circumflex. Pullback revealed moderate proximal disease with circumferential calcium. Ostial circumflex with only mild to moderate calcified disease. No significant left main disease Decision to proceed with PCI of mid circumflex. -- PCI -- Antithrombotic therapy: Heparin, ticagrelor Procedure: Daily IVUS catheter removed Pre-procedure flow HENOK 3 Mid circumflex lesion predilated with 2.5 compliant balloon Unable to pass 2.5 x 18 mm stent due to residual calcium/tortuosity. Mid circumflex further dilated with 2.5 balloon Dilated mid circumflex lesion stented with 2.5 x 15 mm [place] LEAH Stent postdilated with 3.0 NC Residual stenosis distal to stent into OM 2 stented with 2.25 x 15 mm [place] Stents postdilated with stent balloon and 3.0 NC balloon IC vasodilators administered for spasm Post procedure HENOK 3 flow, stents well expanded with minimal residual stenosis and no apparent cardiac complications. RT BULLET LUBRICATING MACHINE OPERATOR accessed under ultrasound guidance with placement of 6Fr sheath RCA cannulated with JR4 guide Transformation Lead 50 wire navigated into distal RCA Ostial/proximal RCA dilated with 2.5 balloon IVUS catheter placed to proximal RCA. Severe diffuse calcified disease extending back to ostium. Proximal/ostial RCA further dilated with shockwave intravascular lithotripsy (3.0 balloon 60 pulses) Ostium/proximal RCA stented with 2.5 x 18 mm [place] LEAH Stent postdilated with 3.0 NC With the aid of GuideLiner proximal to mid RCA further predilated with 2.5 balloon Proximal to mid RCA stented with 2.5 x 18 mm [place] overlapping distal aspect of initial stent Stent postdilated with stent balloon. IC vasodilators administered. Post stent placement angiography revealed hazy mid RCA distal to stent with questionable edge dissection With the aid of GuideLiner third LEAH (2.5 x 12 Aureliano) placed to mid RCA overlapping distal aspect of second stent Stent postdilated with stent balloon Ostial to mid stents postdilated with 3.5 NC balloon Apparent residual stenosis near ostium further evaluated with IVUS. IVUS showed well apposed stent with focal area of underexpansion ostium Proximal/ostial RCA further dilated with 3.0 shockwave intravascular lithotripsy (40 pulses) IC vasodilators administered for spasm Post procedure HENOK 3 flow, stents well expanded with minimal residual stenosis and no apparent cardiac complications. Arterial Closure: TR band, AngioSeal Summary: 1. Successful PCI of mid circumflex into OM2 with 2 overlapping drug-eluting stents (2.5 x 15, 2.25 x 15 Aureliano; postdilated with 3.0 NC). 2. Successful PCI of ostial to mid RCA with intravascular lithotripsy and 3 overlapping drug-eluting stents (2.5 x 18, 2.5 x 18, 2.5 x 12 [place]; postdilated with 3.5 NC). Recommendations: To PCU for continued monitoring Loaded with ticagrelor 180 mg in Continue dual-antiplatelet therapy for at least 1 year. Consider extended P2Y12 in the setting of multivessel stenting. Continue statin, and ASCVD risk factor modification Consult cardiac Rehab Hemodynamics Rest Ao:: 179/72/114 Final Ao: 142/59/91 LV: -- Recommendations Recommendations: PCI without planned CABG (Interventional cardiology consulted for further evaluation of ostial left circumflex and ostial RCA stenosis.) Specimens Specimens: None Radiation Exposure (mGy) 6610 Contrast (mls) 215 Drains Drains: n/A Anesthesia Moderate sedation. Start 0844. End 1130. Sedation monitor: El GONZALEZ Procedural Complication(s) None Disposition PCU I attest to the content of the Intraoperative Record and any orders documented therein. Any exceptions are noted below. [facility] Card Cath Procedure Codes Therapeutic Services & Ancillary Procedure 1: Cardiovascular Tx and Anc Procedures: 95260 IV Ultrasound (Coronary or Graft) Procedure 2: Cardiovascular Tx and Anc Procedures: 08348 IV Ultrasound Ea addl vessel Procedure 3: Cardiovascular Tx and Anc Procedures: 28826 Ultrasonic Guidance Vascular Access Moderate Sedation Procedure 1: Sedation/Anesthesia: 82317 Mod Sedation by the same physician; Ea [id number] Minutes Stenting Procedure 1: Cardiovascular Stent Procedures: 92722 Perc transcatheter placement of intracoronary stent(s), with ang Procedure 2: Cardiovascular Stent Procedures: 35380 Ea addl branch of a major coronary artery PG Care Time/CCT Total # of Minutes Spent Total Time Spent with Patient: Total time spent is greater than 50% in coordination of care (as documented) at patient's floor/unit and/or counseling patient:
--- NOTE | 2024-01-11 22:00 | Electrocardiogram Report ---
Test Reason : Blood Pressure : */* mmHG Vent. Rate : 60 BPM Atrial Rate : 60 BPM P-R Int : 140 ms QRS Dur : 78 ms QT Int : 368 ms P-R-T Axes : 64 45 48 degrees QTcB Int : 368 ms Normal sinus rhythm Normal ECG When compared with ECG of 09-Oct-2016 06:59, Aberrant conduction is no longer Present Premature atrial complexes are no longer Present Vent. rate has decreased by 31 bpm Confirmed by Jose Handy ([id number]) on 01/11/2024 9:59:52 PM Referred By: Ramesh Lyman Confirmed By: Jose Handy
[2024-01-11] MEDS ORDERED: Nursing to Pharmacy Communication SCH (22:45)
[2024-01-12] MEDS: ALBUTEROL HFA 8 GM INHALER INH SCH (00:10)
[2024-01-12 07:56] LABS: Basophils # (auto) 0.04 K/uL (0.00-0.20); Basophils % (auto) 0.6 %; Eosinophils # (auto) 0.08 K/uL (0.00-0.50); Eosinophils % (auto) 1.2 %; Hematocrit (blood only) 35.1 % (37.0-47.0); Hemoglobin 11.6 g/dl (12.0-16.0); Immature Granulocytes # (auto) 0.02 K/uL (0.01-0.20); Immature Granulocytes % (auto) 0.3 %; Lymphocytes # (auto) 1.47 K/uL (1.20-3.40); Lymphocytes % (auto) 22.7 %; Mean Corpuscular Hemoglobin 29.7 pg (25.0-34.0); Mean Platelet Volume 8.7 fL (9.4-12.4); Monocytes # (auto) 0.88 K/uL (0.11-0.59); Monocytes % (auto) 13.6 %; Neutrophils # (auto) 3.99 K/uL (1.40-6.50); Neutrophils % (auto) 61.6 %; Platelet Count 262 K/uL (130-400); RDW Coefficient of Variation 13.4 % (11.5-14.5); White Blood Count 6.48 K/ul (4.8-10.8)
[2024-01-12 08:11] LABS: BUN Creatinine Ratio 16.4 (10-20); Calcium 9.1 mg/dl (8.6-10.3); Creatinine Clr Calc Pharmacy 97.3 ml/min; Est GFR (African American) 110.7 ml/min; Est GFR (Non-African American) 95.5 ml/min; Potassium 3.7 mmol/L (3.5-5.1)
[2024-01-12 08:15] LABS: Estimated Average Glucose 117 mg/dl; Hemoglobin A1C 5.7 % (4.5-5.6)
[2024-01-12] MEDS ORDERED: PANTOprazole 40 MG TAB PO SCH (09:00)
[2024-01-12] MEDS: ATORVASTATIN 40 MG TAB PO SCH (09:41)
[2024-01-12] MEDS: ASPIRIN 81 MG ECTAB PO SCH (09:41)
[2024-01-12] MEDS: hydroCHLOROthiazide 25 MG TAB PO SCH (09:43)
[2024-01-12] MEDS: TICAGRELOR 90 MG TAB PO SCH (10:42)
[2024-01-12 11:13] VITALS: BP 127/76; RESP 18; TEMP 98.6; O2SAT 95
[2024-01-12 12:19] VITALS: PULSE 73
--- NOTE | 2024-01-12 13:35 | Cardiology Progress Note ---
Date of Service January 12, 2024 Assessment & Plan (1) S/P right coronary artery (RCA) stent placement: (2) Presence of drug coated stent in left circumflex coronary artery: (3) Abnormal nuclear stress test: (4) Angina of effort: (5) Dyslipidemia: Plan Results of coronary angiography and percutaneous intervention discussed. Continue dual antiplatelet therapy with aspirin and Brilinta for minimum of 6 months post percutaneous intervention. Other cardiovascular medications will be continued as previously ordered. Postprocedural activity restrictions listed below. Outpatient cardiology follow-up as scheduled. ACTIVITY RECOMMENDATIONS: It is common to feel weak and fatigue for a few days. * Do not drive or operate any motorized equipment for the next three days. * Limit stair usage (2 or 3 trips a day only) for the next three days. * Do not lift anything heavier than 10 pounds for the next three days. * Do not engage in vigorous exercise or any sports for the next five days. * You may shower the day after your procedure, but do not immerse the area for three days. Cleanse the site gently with soap and water. SPECIAL CARE INSTRUCTIONS: * You may replace the pressure dressing or band-aid the morning after the procedure. * After your procedure, it is normal to have a small bruise or small lump at the site. Examine your site daily for any change in the bruise or lump, redness, swelling, drainage or numbness. Notify your doctor if any change. BLEEDING: * If there is a small amount of bleeding at the site, lie down and apply firm pressure with a clean cloth for ten minutes. When the bleeding stops, lie quietly keeping the procedure limb straight for six hours. Notify your doctor as soon as possible. * If the bleeding does not stop after ten minutes or if there is a large amount of bleeding or spurting, call 911 immediately. Continue to lie down and hold firm pressure until help arrives. SKIN IRRITATION: * You may experience some redness and/or swelling in the area where radiation was administered. If any skin irritation occurs, please contact your family physician. Admission and Anticipated Discharge Date Admission Date: January 11, 2024 Subjective 4-year-old female seen examined at the bedside. Feeling well today. Denies chest pain or unusual shortness of breath at rest. No wrist discomfort or ecchymosis. Anxious for discharge. Offers no concerns/complaints. Review of Systems Review of Systems: All systems reviewed & are unremarkable except as noted in Subjective Physical Exam Constitutional: well nourished; no acute distress Respiratory: normal respiratory effort; no respiratory distress Auscultation: lungs clear to auscultation bilaterally; no crackles, no rales, no rhonchi and no wheezes Cardiovascular: Rate/Rhythm: regular rate and regular rhythm Heart Sounds: normal S1 and normal S2; no murmur Vessels: femoral pulses present and radial pulses present; no JVD Extremities: no edema Gastrointestinal (Abdomen): Inspection/Auscultation: normal bowel sounds; abdomen not distended Percussion/Palpation: abdomen nontender, no guarding and abdomen not rigid Neurologic: CN's II-XI intact bilaterally and moves all extremities; no focal motor deficits Results & Data Vital Signs (Past 12 Hours) Vital Signs Temp Pulse Pulse Resp BP Pulse Ox O2 Del Method 01/12/24 12:17 37.0 C 73 18 127/76 95 01/12/24 11:26 70 01/12/24 11:12 37.0 C 73 18 127/76 95 Room Air 01/12/24 10:34 76 16 96 Room Air 01/12/24 07:51 82 14 92 Room Air 01/12/24 07:23 37.2 C 76 18 134/73 93 Room Air 01/12/24 04:37 89 114/69 01/12/24 03:44 78 16 91 Room Air 01/12/24 03:20 37.2 C 84 18 127/69 94 Room Air FiO2 01/12/24 12:17 01/12/24 11:26 01/12/24 11:12 01/12/24 10:34 01/12/24 07:51 21 01/12/24 07:23 01/12/24 04:37 01/12/24 03:44 01/12/24 03:20 Laboratory Results CBC 01/12/24 Range/Units 07:13 WBC 6.48 (4.8-10.8) K/ul RBC 3.90 L (4.20-5.40) M/uL Hgb 11.6 L (12.0-16.0) g/dl Hct 35.1 L (37.0-47.0) % Plt Count 262 (130-400) K/uL Neut # (Auto) 3.99 (1.40-6.50) K/uL Lymph # (Auto) 1.47 (1.20-3.40) K/uL Avery # (Auto) 0.88 H (0.11-0.59) K/uL Eos # (Auto) 0.08 (0.00-0.50) K/uL Baso # (Auto) 0.04 (0.00-0.20) K/uL Comprehensive Metabolic Panel 01/12/24 Range/Units 07:13 Sodium 137 (136-145) mmol/L Potassium 3.7 (3.5-5.1) mmol/L Chloride 107 (98-107) mmol/L Carbon Dioxide 24 (21-32) mmol/L BUN 11 (6-23) mg/dl Creatinine 0.67 (0.6-1.2) mg/dl Glucose 103 H (70-99(Fasting)) mg/dl Calcium 9.1 (8.6-10.3) mg/dl Intake and Output 01/11/24 01/12/24 01/12/24 22:59 06:59 14:59 Intake Total 526.667 / 526.667 Balance 526.667 / 526.667 Intake: IV 526.667 / 526.667 Sodium Chloride 0.9% 1,000 ml @ 526.667 / 526.667 100 mls/hr IV .Q10H [facility] Rx#: [id number] Other: # Unmeasured Voids 1 4 Weight 76.7 kg 76.7 kg Weight Measurement Method Built in [facility] Patient Weight 01/13/24 06:59 Weight 76.7 kg
--- NOTE | 2024-01-12 14:50 | Discharge Summary ---
Date of Service January 12, 2024 Admission HPI Per Admitting Provider This is a 58 yo F with PMH of DM II, dyslipidemia, HTN, tobacco use disorder, history of SVT, depression/anxiety and abnormal stress test who presented today for planned diagnostic cardia catheterization with Dr. Romero. Severe CAD and Elevated Intracardiac Pressures were noted with 2 vessel disease requiring a total of 5 LEAH to be placed by Dr. Terrazas. Patient follows with Dr. Lyman for cardiac care and has had increased dyspnea on exertion along with palpitations over the past few months. Underwent dobutamine stress test with abnormal result at the beginning of the month. Seen and evaluated post procedure. Patient feeling well. No chest pain or shortness of breath. Tolerated lunch without issue. No nausea, vomiting or abdominal pain. No dysuria, diarrhea or constipation. No bleeding at the access sites of right wrist and right groin. Has decreased smoking to 6 cigarettes daily. Is on metformin for type 2 diabetes. Receives primary care at a family practice in [place]. Admission Exam Per Admitting Provider General Appearance: WD/WN, vitals as above, NAD, sitting up in bed, pleasant, conversing easily Head: normocephalic, atraumatic Eyes: normal inspection, PERRL, conjunctivae normal, anicteric sclerae ENT: external ear and nose normal, oropharynx normal Neck: normal visual inspection, trachea midline, no thyromegaly Respiratory: normal respiratory effort, lungs clear to auscultation, no wheeze, rales, rhonchi. No accessory muscle use Cardiovascular: regular rate, rhythm, normal peripheral pulses, no BLE edema. Vessels: no JVD, + R radial and groin access sites with dressing c/d/i. Chest: normal inspection of chest Abdomen/GI: normal bowel sounds, soft, nontender, no hepatosplenomegaly Extremities/Musculoskeletal: no cyanosis or clubbing, extremities motor strength 5/5 Neurologic: PERRL, EOMI, accommodation nl, no face palsy, no dysarthria, CN's II-XI intact bilaterally and moves all extremities Psychiatric: A+Ox3, euthymic affect Skin: no rashes, normal color, warm/dry Principal Diagnosis CAD status post PCI Discharge Exam Constitutional: WD/WN, vitals as above, NAD, sitting up in bed, pleasant, conversing easily Respiratory: normal respiratory effort, lungs clear to auscultation, no wheeze, rales, rhonchi. Normal insp/exp effort, no accessory muscle use Cardiovascular: RRR, no murmur, no edema Vessels: no JVD or carotid bruit Chest: normal inspection of chest Abdomen: normal bowel sounds, soft, nontender, no hepatosplenomegaly Musculoskeletal: no cyanosis or clubbing, extremities motor strength 5/5 Skin: no rashes, warm and dry normal turgor Neurologic: PERRL, EOMI, accommodation nl, no face palsy, no dysarthria CN's II- XI intact bilaterally and moves all extremities Psychiatric: A+Ox3, euthymic affect Discharge Data Allergies Allergy/AdvReac Type Severity Reaction Status Date / Time lisinopril AdvReac Unknown COUGH Unverified 02/11/12 12:05 Consultations 01/11/24 13:27 Consult Cardiology Routine Procedures Performed Operation Date: 01/11/24 08:00 Actual Procedures p Cath, Left with Cors and Vent - Zachariah Romero, DO s Cineradiography w/Routine Exam - Zachariah Romero DO s IVUS Coronary Single Vessel - Jason Terrazas MD s IVUS Coronary each ADDL Vessel - Jason Terrazas MD s Drug Eluting Stent SGl Vessel - Jason Terrazas MD Ordered Studies 01/11/24 06:19 CL Cath Imgs for PACS use only Routine 01/11/24 10:31 CL IVUS Coronary Single Vessel Routine Hospital Course (1) S/P cardiac catheterization: (2) DM type 2 (diabetes mellitus, type 2): (3) Dyslipidemia: (4) Hypertension: Plan Patient is a 58 yo F with PMH of DM II, dyslipidemia, HTN, tobacco use disorder, history of SVT, depression/anxiety and abnormal stress test who presented for planned diagnostic cardia catheterization . She was found to have severe CAD and Elevated Intracardiac Pressures were noted on diagnostic cath S/p PCI by Dr. Terrazas with LEAH x 2 to ostial left circumflex and LEAH x 3 to ostial RCA Started on Ticagrelor+ aspirin 81mg, needs to be on DAPT for minimum of 6 months Also started on lipitor 80mg once a day. Other meds continued as before. Follow up with PCP and Cardiology as outpatient. Please note the above document was generated using voice recognition software. It may contain grammatical, syntax or spelling errors. Any formal questions or concerns about the content, text or information contained within the body of this dictation should be directly addressed to the provider for clarification Total Time Total Time Spent Total Time Spent (In Minutes): 45 Total Time Includes: Examination of the Patient, Discharge Planning, Medication Reconciliation, Communication With Other Providers and Other Discharge Plan Discharge Items Patient Disposition: Home - Self-Care Reason For Visit: CAD Discharge Diagnosis: CAD s/p LEAH x 2 to ostial left circumflex and LEAH x 3 to ostial RCA Activity: Resume your previous activity Non-emergency contact: Primary Care Provider Call non-emergency contact if: you have any medication questions and your symptoms worsen Follow-up/Referrals: Alisha Horn MD [Primary Care Provider] - 01/19/24 1:00 pm Diet: Regular Addtl Attending Provider Instructions: You were admitted to the hospital for cardiac cath. You underwent placement of stents in 2 of your heart vessels. You are prescribed following medication; Take Aspirin 81 mg once a day Take Brilinta 90 mg twice a day Take Lipitor 80 mg once a day Please stop taking simvastatin Continue to take all your other medication An appointment with your primary care doctor will be admitted for you next week. Please discuss about the smoking cessation with them. You might benefit from Chantix to help you quit smoking. Pending Studies at Discharge: No Stand-Alone Forms: [facility], Smoking Cessation Medications and DC Order Prescriptions: New Brilinta 90 mg Tablet 90 mg PO BID Qty: 60 0RF aspirin 81 mg Tablet,Delayed Release (Dr/Ec) 81 mg PO QAM Qty: 30 0RF atorvastatin [Lipitor] 80 mg tablet 80 mg PO DAILY Qty: 30 0RF Continued metformin 500 mg tablet 500 mg PO DAILY hydrocodone-acetaminophen 10-325 mg tablet 1 tab PO Q8H PRN (Reason: Severe Pain (Scale Score 7-10)) baclofen 20 mg tablet 20 mg PO TID PRN (Reason: Muscle Spasm) nifedipine 60 mg tablet extended release 24hr 60 mg PO DAILY pantoprazole 40 mg tablet,delayed release (DR/EC) 40 mg PO BID losartan 25 mg tablet 25 mg PO DAILY furosemide 20 mg tablet 20 mg PO DAILY PRN (Reason: Edema) metoprolol succinate 25 mg tablet extended release 24 hr 25 mg PO BID albuterol 90 mcg/actuation Aerosol 90 mcg INHALATION Q4H PRN (Reason: Shortness Of Breath Or Wheezing) loratadine [Claritin] 10 mg Tablet 10 mg PO DAILY PRN (Reason: allergies) armodafinil 200 mg tablet 200 mg PO DAILY buspirone 5 mg Tablet 20 mg PO BID PRN (Reason: Anxiety) Discontinued simvastatin 80 mg tablet 80 mg PO HS Discharge Orders: Discharge Order (Routine); Ordered 01/12/24 Ordered By: Gianni Irizarry Admission Data Admit Date/Time: 01/11/24 12:18 Attending Provider: Gianni Irizarry Admit Provider: Jason Terrazas Primary Care Provider: Alisha Horn Other Providers: Zachariah Romero Other Interventions: Discharge Summary Assessment (RN) Last Done: 01/12/24 12:17
== END 2024-01-12 12:59 | disposition home or self-care (01) ==
LOC: CC 06:47 → 2S 06:47 → SUATTDRO 12:18